=== PATIENT | male | born 1945 | race Caucasian/White ===

== ENCOUNTER 2019-03-15 07:55 | Outpatient (REF) | payer MEDICARE, OTHER, SELFPAY ==
[2019-03-15 13:58] LABS: HCT 44.8 % (40.0-50.0); Mean Corp. HGB Concentration 33.5 g/dL (32.0-36.0); Mean Corpuscular Hemoglobin 33.5 pg (27.0-33.0); Mean Platelet Volume 9.8 fL (8.0-11.0); Platelet Count 262 x1000/uL (130-400); RBC 4.48 m/cumm (4.50-6.00); RBC Distribution Width 12.7 % (11.8-14.1); White Blood Cell Count 8.44 k/cumm (4.4-10.8)
[2019-03-15 14:07] LABS: ALT 41 U/L (12-78); AST 31 U/L (15-37); Albumin 3.7 g/dL (3.4-5.0); Alkaline Phosphatase 74 U/L (46-116); Anion Gap 12.2 mmol/L (3-11); BUN 14 mg/dL (7-18); Bilirubin, Total 1.2 mg/dL (0.2-1.0); CO2 25.8 mmol/L (21.0-32.0); CREATININE 0.81 mg/dL (0.70-1.30); Chloride 103 mmol/L (98-107); Glucose 90 mg/dL (70-100); Potassium 4.2 mmol/L (3.5-5.1); Sodium 141 mmol/L (136-145); Total Protein 7.3 g/dL (6.4-8.2); Vitamin B12 400 pg/mL (193-986)
[2019-03-15 15:21] LABS: Hemoglobin A1C 5.7 % (4.5-6.2)
[2019-03-16 11:35] LABS: Folate 5.1 ng/ml
== END 2019-03-15 08:15 ==
LOC: NCHCN 07:55
PROVIDERS: PCP Family Medicine; Visit Provider Family Medicine
DX: R25.1 Tremor, unspecified (principal); D75.89 Other specified diseases of blood and blood-forming organs; R73.09 Other abnormal glucose
CPT/HCPCS: 80053; 85027; 82607; 82746; 83036

== ENCOUNTER 2019-06-05 12:12 | Outpatient (REF) | payer MEDICARE, OTHER, SELFPAY ==
--- NOTE | 2019-06-05 11:37 | SKI_PTH ---
PATIENT: Bo Titus Jr LOC: [facility] U#:[id number] AGE/SX: 73/M ROOM: RE06/05/[address]: Tristen Tay DO : 1945 BED: DIS: 06/05/2019 SPEC #: [id number] RECD: 06/05/19 18:09 STATUS: CEDRIC REQ #: [id number] ABIDA: 06/05/19 11:[address]: Tristen Tay DEPT: Surgical Specimen RECD BY: Chely Quarles ENTERED: 06/05/19 18:10 SP TYPE: SKI OTHR DR: Genevieve Peterson Tissues: 1 - SKIN BIOPSY(SHAVE/PUNCH) Procedures: SKIN LEVEL 4 Comments: [id number]
== END 2019-06-05 12:32 ==
LOC: LBN 12:12
PROVIDERS: PCP Family Medicine; Visit Provider Otolaryngology Otolaryngology/Facial Plastic Surgery
DX: C44.311 Basal cell carcinoma of skin of nose (principal)
CPT/HCPCS: 88305

== ENCOUNTER 2019-07-17 06:15 | Day surgery (SDC) | payer MEDICARE, OTHER, SELFPAY ==
[2019-07-17 06:29] VITALS: BP 144/97; PULSE 87; RESP 16; TEMP 36.5; O2SAT 99
[2019-07-17] MEDS: Lactated Ringers 1,000 ML 80 ML IV (06:48)
[2019-07-17] MEDS: CLINDAMYCIN 600 MG/50 ML BAG 100 MG IVPB (07:47)
--- NOTE | 2019-07-17 08:07 | SKI_PTH ---
PATIENT: Bo Titus Jr LOC: [facility] U#:[id number] AGE/SX: 73/M ROOM: RE07/17/[address]: Tristen Tay DO : 1945 BED: DIS: 07/17/2019 SPEC #: [id number] RECD: 07/17/19 12:19 STATUS: CEDRIC REPerla #: [id number] ABIDA: 07/17/19 08:[address]: Tristen Tay DEPT: Surgical Specimen RECD BY: Yoselin Rahman ENTERED: 07/17/19 12:24 SP TYPE: ESTRELLA RIBEIRO DR: Genevieve Peterson Tissues: 1 - SKIN BIOPSY(SHAVE/PUNCH) 2 - SKIN BIOPSY(SHAVE/PUNCH) 3 - SKIN BIOPSY(SHAVE/PUNCH) 4 - SKIN BIOPSY(SHAVE/PUNCH) 5 - SKIN BIOPSY(SHAVE/PUNCH) 6 - FROZEN SECTION EXAM 7 - FROZEN SECTION- EXTRA SPECIMEN Procedures: FROZEN SECTION EXTRA SKIN LEVEL 4 FROZEN SECTION EXAM Comments: [id number]
--- NOTE | 2019-07-17 08:16 | W.PM.DSUDISC ---
Discharge Plan Disposition Patient Disposition: HOME Condition: Good Discharge Details Reason For Visit: or Attending Provider: Tristen Tay Primary Care Provider: Genevieve Peterson Home Meds and New Rx's Prescriptions: No Action cyanocobalamin (vitamin B-12) [Vitamin B-12] 1,000 mcg Tablet 1,000 mcg PO DAILY RF: 0 tadalafil [Cialis] 10 mg Tablet 10 mg PO PRN PRNRF: 0 Discharge Instructions Additional Instructions: see sheet Activity:: Activity as Tolerated Remove Dressings/Wound Care:: 24 hours Shower/Bathe:: 24 hours Diet:: As Tolerated DS: Diagnosis Discharge Diagnosis (1) Skin cancer, basal cell: Status: Acute
--- NOTE | 2019-07-17 08:19 | W.PM.DSUDISC ---
Discharge Plan Disposition Patient Disposition: HOME Condition: Good Discharge Details Reason For Visit: or Attending Provider: Tristen Tay Primary Care Provider: Genevieve Peterson Home Meds and New Rx's Prescriptions: Continued cyanocobalamin (vitamin B-12) [Vitamin B-12] 1,000 mcg Tablet 1,000 mcg PO DAILY RF: 0 tadalafil [Cialis] 10 mg Tablet 10 mg PO PRN PRNRF: 0 Discharge Instructions Additional Instructions: see sheet Activity:: Activity as Tolerated Remove Dressings/Wound Care:: 24 hours Shower/Bathe:: 24 hours Diet:: As Tolerated DS: Diagnosis Discharge Diagnosis (1) Skin cancer, basal cell: Status: Acute
[2019-07-17] MEDS: Oxymetazolone 0.05% SPRAY 15 ML BTL (09:27)
[2019-07-17 10:30] VITALS: BP 130/82; PULSE 79; RESP 16; TEMP 36.1; O2SAT 95
--- NOTE | 2019-07-17 13:59 | ROE_ITS ---
DATE OF PROCEDURE: July 17, 2019 PREOPERATIVE DIAGNOSIS: Basal cell carcinoma, nasal dorsum. POSTOPERATIVE DIAGNOSIS: Same. PROCEDURE: 1. Excision of extensive basal cell carcinoma with multiple positive margins invaded into the underly ing architecture of the nose and nasal dorsum, aggressive sub-type. 2. Wide undermining measuring 4.2 cm x 3.5 cm complex closure. Overall defect after additional excis ion was 3.7 cm SURGEON: Tristen Tay D.O. ANESTHESIA: MAC sedation and 23 cc's of 1% Lidocaine with 1:100,000 epinephrine. CONDITION: The patient was stable to PACU. COMPLICATIONS: None. SPECIMEN: Frozen section performed; positive 12 to 6 o'clock, as well as deep; required re-resection ; additional frozen section revealed positivity between 3 and 6; additional resection performed. A t otal of two frozen sections and three permanent sections with extensive excision and spread of this p rimary tumor. INDICATIONS FOR PROCEDURE: This is a pleasant 73-year-old male who presents with a non-healing lesio n of the nasal tip, which was biopsied and showed to be basal cell carcinoma, positive at the periphe ry, as well as the base. The decision was made forth to proceed with surgery. We discussed numerous attempts for resection and reconstruction, including bi-lobe reconstruction, skin grafts and primary closure. The decision was made forth to proceed with surgery. Risks and complications were discuss ed in detail. Consent was placed in the Chart. PROCEDURE: The patient was brought back to the operative suite in stable condition, placed supine on the operating table, given IV sedation. Preoperatively 19 cc's of 1% Lidocaine with 1:100,000 epine phrine was injected into the right neck, as well as the nose and right nasal facial crease. The bebe ent was prepped and draped again in normal fashion. A time-out was taken to confirm proper patient a nd procedure. A #15 blade scalpel was used to excise the primary lesion, initially measuring 1.2 cm. Colored sutur es were placed for frozen section. Frozen section was performed. Positivity between 12 and 6 o'cloc k was found, as well as the entire deep margin. Full-thickness skin had already been excised; this w as evident of basal cell extending into the architecture of the nasal dorsum. Periosteum and cartila ginous structures were then excised. New margin in purple and the colored sutures were placed. This was sent for permanent analysis. This did not extend into the internal aspect of the nose. Additio nal frozen section analysis of the prior 12 to 6 o'clock re-resection was positive at the 4 o'clock; there was a rare focus. We decided to remove again additional re-resection of 3 to 6 o'clock and sen t for permanent analysis. The wound did lengthen. We opted for vertical complex closure after wide undermining of 4.2 cm x 3.5 cm of the nasal dorsal vault and nasal tip area. I felt this was going t o provide a better cosmetic outcome than a skin graft. Bi-lobe flap was not possible because the def ect at the height was greater than 2 cm. Complex undermining was performed in the submuscular layer. Triple layer closure was performed with #4-0 Monocryl, #3-0 Nylon and #4-0 Nylon. Six o'clock and twelve o'clock dog ears were excised. Total wound length was 3.7 cm. I opted for a vertical closure versus a skin graft, as I felt this was going to be a better functional outcome. Total blood loss w as 2 cc's. Total local was 23 cc's; 4 cc's was used intraoperatively. The patient was stable to PAC U.
== END 2019-07-17 11:16 | disposition home or self-care (01) ==
PROVIDERS: PCP Family Medicine; Visit Provider Otolaryngology Otolaryngology/Facial Plastic Surgery
PROC: (CPT 11642; principal; 2019-07-17 07:30)
DX: C44.311 Basal cell carcinoma of skin of nose (principal)
CPT/HCPCS: 11642; 13152; 88305; 88331; 88332; J1885; J2250; J2405

== ENCOUNTER 2020-03-20 09:19 | Outpatient (REF) | payer MEDICARE, SELFPAY ==
[2020-03-20 15:37] LABS: HGB 14.7 g/dL (13.5-17.5); Mean Corp. HGB Concentration 34.2 g/dL (32.0-36.0); Mean Corpuscular Hemoglobin 33.5 pg (27.0-33.0); Mean Corpuscular Volume 97.9 fL (80-95); Mean Platelet Volume 10.3 fL (8.0-11.0); Platelet Count 280 x1000/uL (130-400); RBC 4.39 m/cumm (4.50-6.00); RBC Distribution Width 12.8 % (11.8-14.1); White Blood Cell Count 5.89 k/cumm (4.4-10.8)
[2020-03-20 17:35] LABS: ALT 56 U/L (16-63); AST 50 U/L (15-37); Albumin 3.8 g/dL (3.4-5.0); Alkaline Phosphatase 60 U/L (46-116); Anion Gap 12.7 mmol/L (3-11); BUN 15 mg/dL (7-18); Bilirubin, Total 1.1 mg/dL (0.2-1.0); CO2 25.3 mmol/L (21.0-32.0); CREATININE 0.83 mg/dL (0.70-1.30); Calcium 9.3 mg/dL (8.5-10.1); Chloride 102 mmol/L (98-107); Folate 4.3 ng/mL (8.6-20.0); Glucose 87 mg/dL (74-106); Sodium 140 mmol/L (136-145); Total Protein 7.3 g/dL (6.4-8.2); Vitamin B12 475 pg/mL (193-986)
[2020-03-20 19:28] LABS: Hemoglobin A1C 5.3 % (3.8-5.6)
== END 2020-03-20 09:39 ==
LOC: NCHCN 09:19
PROVIDERS: PCP Family Medicine; Visit Provider Family Medicine
DX: R73.03 Prediabetes (principal); D75.89 Other specified diseases of blood and blood-forming organs
CPT/HCPCS: 80053; 85027; 82607; 82746; 83036

== ENCOUNTER 2021-04-15 11:28 | Outpatient (REF) | payer MEDICARE, SELFPAY ==
[2021-04-15 14:41] LABS: ALT 49 U/L (16-63); AST 35 U/L (15-37); Albumin 3.8 g/dL (3.4-5.0); Alkaline Phosphatase 53 U/L (46-116); Bilirubin, Direct 0.2 mg/dL (0.0-0.2); Bilirubin, Total 0.5 mg/dL (0.2-1.0); Total Protein 7.2 g/dL (6.4-8.2)
[2021-04-15 14:56] LABS: Iron 115 ug/dL (65-175); Total Iron Binding Capacity 277 ug/dL (250-450); Transferrin Sat 42 % (20-55)
[2021-04-15 15:25] LABS: Ferritin 259 ng/mL (26-388); Folate 19.9 ng/mL (8.6-20.0); Vitamin B12 589 pg/mL (193-986)
[2021-04-16 10:12] LABS: HBs Antibody, Quant <3.1 mIU/mL (See Note); Hepatitis B Surface Ab Negative (See Note)
[2021-04-16 10:24] LABS: Hepatitis B Surface Ag Negative (Negative)
[2021-04-16 11:02] LABS: Hep A Total Ab w Rflx IgM Negative (Negative)
[2021-04-16 11:30] LABS: Hepatitis C Ab w Rflx HCV PCR Negative (Negative)
== END 2021-04-15 11:29 | disposition home or self-care (01) ==
LOC: NCHCN 11:28
PROVIDERS: PCP Family Medicine; Visit Provider Family Medicine
DX: D75.89 Other specified diseases of blood and blood-forming organs (principal); D52.9 Folate deficiency anemia, unspecified; R74.8 Abnormal levels of other serum enzymes
CPT/HCPCS: 80076; 86706; 86709; 86803; 87340; 82607; 82728; 82746; 83540; 83550

== ENCOUNTER 2022-04-28 16:13 | Outpatient (REF) | payer MEDICARE, SELFPAY ==
[2022-04-28 16:24] LABS: HCT 41.5 % (40.0-50.0); HGB 13.9 g/dL (13.5-17.5); MCH 32.6 pg (27.0-33.0); MCHC 33.5 % (32.0-36.0); MCV 97 fL (80-95); MPV 9.7 fL (8.0-11.0); Platelet Count 279 10^3/uL (130-400); RBC 4.27 10^6/uL (4.36-5.78); RDW 12.6 % (11.8-14.1); RDW-SD 44.9 fL
[2022-04-28 16:42] LABS: Iron 110 ug/dL (65-175)
[2022-04-28 16:59] LABS: ALT 47 U/L (16-63); AST 37 U/L (15-37); Albumin 3.4 g/dL (3.4-5.0); Alkaline Phosphatase 62 U/L (46-116); Anion Gap 13.2 mmol/L (3-11); BUN 13 mg/dL (7-18); Bilirubin, Total 0.6 mg/dL (0.2-1.0); CO2 26.8 mmol/L (21.0-32.0); CREATININE 0.8 mg/dL (0.70-1.30); Calcium 8.9 mg/dL (8.5-10.1); Chloride 102 mmol/L (98-107); Ferritin 332 ng/mL (26-388); Folate 3.6 ng/mL (8.6-20.0); Glucose 79 mg/dL (74-106); Potassium 4.1 mmol/L (3.5-5.1); Sodium 142 mmol/L (136-145); Total Protein 7.2 g/dL (6.4-8.2); Vitamin B12 1708 pg/mL (193-986)
[2022-04-28 17:08] LABS: Bilirubin, Direct 0.2 mg/dL (0.0-0.2)
== END 2022-04-28 16:14 | disposition home or self-care (01) ==
LOC: NCHCN 16:13
PROVIDERS: PCP Family Medicine; Visit Provider Family Medicine
DX: D52.9 Folate deficiency anemia, unspecified (principal); F10.10 Alcohol abuse, uncomplicated
CPT/HCPCS: 80048; 80076; 85027; 82607; 82728; 82746; 83540

== ENCOUNTER 2023-05-05 10:01 | Outpatient (REF) | payer MEDICARE, SELFPAY ==
[2023-05-05 17:06] LABS: HCT 42.2 % (40.0-50.0); HGB 13.9 g/dL (13.5-17.5); MCH 32.3 pg (27.0-33.0); MCHC 32.9 % (32.0-36.0); MCV 98 fL (80-95); MPV 9.7 fL (8.0-11.0); Platelet Count 311 10^3/uL (130-400); RDW 12.6 % (11.8-14.1); RDW-SD 45.1 fL; WBC 7.34 10^3/uL (4.4-10.8)
[2023-05-05 18:20] LABS: Iron 88 ug/dL (65-175)
[2023-05-05 19:24] LABS: ALT 59 U/L (16-63); AST 59 U/L (15-37); Albumin 3.4 g/dL (3.4-5.0); Alkaline Phosphatase 83 U/L (46-116); Anion Gap 12.6 mmol/L (3-11); BUN 10 mg/dL (7-18); Bilirubin, Total 0.7 mg/dL (0.2-1.0); CO2 27.4 mmol/L (21.0-32.0); CREATININE 0.8 mg/dL (0.70-1.30); Calcium 9.2 mg/dL (8.5-10.1); Calculated LDL 76 mg/dL (<100); Chloride 98 mmol/L (98-107); Cholesterol 186 mg/dL (<200); Estimated GFR 92.29 (mL/min/1.73m2); Ferritin 678 ng/mL (26-388); Glucose 78 mg/dL (74-106); HDL Cholesterol 98 mg/dL (40-60); Sodium 138 mmol/L (136-145); Total Protein 7.2 g/dL (6.4-8.2); Triglyceride 64 mg/dL (<150)
[2023-05-05 19:25] LABS: Folate > 20.0 ng/mL (8.6-20.0)
[2023-05-05 19:32] LABS: Bilirubin, Direct 0.3 mg/dL (0.0-0.2)
== END 2023-05-05 10:02 | disposition home or self-care (01) ==
LOC: NCHCN 10:01
PROVIDERS: PCP Family Medicine; Visit Provider Family Medicine
DX: D52.9 Folate deficiency anemia, unspecified (principal); F10.10 Alcohol abuse, uncomplicated; R03.0 Elevated blood-pressure reading, without diagnosis of hypertension; R79.89 Other specified abnormal findings of blood chemistry
CPT/HCPCS: 80048; 80061; 80076; 85027; 82728; 82746; 83540

== ENCOUNTER → 2023-06-02 01:50 | Outpatient (CLI) | payer MEDICARE, SELFPAY ==
--- NOTE | 2023-06-02 | DI.MRI_ITS ---
Exam(s) MR BRAIN WO EXAM: MR BRAIN WO CLINICAL HISTORY: MILD COGNITIVE IMPAIRMENT, G31.84, ATAXIA, R27.0 TECHNIQUE: Multiplanar multisequence MRI of the brain was performed. COMPARISON: No exams were available for comparison FINDINGS: VENTRICLES AND EXTRA AXIAL SPACES: Normal in size and morphology for the patient's age. MIDLINE SHIFT: None. CEREBRAL PARENCHYMA: No focus of restricted diffusion to suggest acute infarct. No space-occupying le ashley identified. Mild to moderate atrophy consistent with the patient's age. No scattered foci of high signal in the white matter. HEMORRHAGE: No acute hemorrhage. Focus of hemosiderin seen on susceptibility weighted images in the left parietal lobe, consistent with old petechial microhemorrhage. BRAINSTEM/CEREBELLUM: Normal. VISUALIZED PARANASAL SINUSES/MASTOIDS:Clear. Vasculature: Normal flow void. PITUITARY GLAND: Unremarkable. ORBITS: Unremarkable. IMPRESSION: No acute abnormality. Old petechial micro hemorrhage left parietal lobe. DATA REPOSITORY:
== END ==
PROVIDERS: PCP Family Medicine; Visit Provider Family Medicine
DX: G31.84 Mild cognitive impairment of uncertain or unknown etiology (principal); R27.0 Ataxia, unspecified
CPT/HCPCS: 70551

== ENCOUNTER 2023-08-23 10:27 | Inpatient (IN) | payer MEDICARE, SELFPAY ==
[2023-08-23] VITALS (127 sets, daily range): BP systolic 51–138; BP diastolic 27–76; PULSE 73–161; RESP 10–39; TEMP 36.6–39.3; O2SAT 94–100
--- NOTE | 2023-08-23 10:00 | RT.EKG_ITS ---
APPROVED REPORT Exam: Resting ECG Reason for Exam: dizzy Patient Location: E HR:126 bpm ECG Measurements Heart Rate 126 AXIS LA 138 P 62 QRSd 97 QRS -64 QT 303 T 81 QTc 439 Conclusion Sinus tachycardia...rate> 99 Left anterior fascicular block...axis(240,-40), init forces inf
--- NOTE | 2023-08-23 10:41 | W.ED.GENAD ---
Discharge Plan Disposition Patient Disposition: Admit to [facility] Condition: Serious Discharge Details Clinical Impression: Alcohol withdrawal, Sepsis Admit Date/Time: 08/23/23 12:20 Admit Provider: Adolfo Mckenzie Attending Provider: Adolfo Mckenzie Primary Care Provider: Genevieve Peterson ED Provider: Tracy Carrera Medical Decision Making <Tracy Carrera NP - Last Filed: 08/23/23 15:55> 77-year-old male presents to the ER via EMS for increased shakes after stopping drinking 3 weeks ago, he did fall on Wednesday. He presents febrile with a temperature of 102, he has rigors, he is covered in stool also reported by EMS incontinence of urine. He denies any chest pain or abdominal pain he does have some left hip pain which he reports has been ongoing before the fall for a few weeks. He is meeting sepsis criteria upon arrival. He last took some ibuprofen yesterday. He does have a past medical history of alcohol abuse, glaucoma, hypertension, prediabetes, surgical history includes tonsillectomy, prostatectomy, colon resection and colonoscopy. He reports that he drinks a gallon of alcohol a week usually, he is a former smoker. Sepsis order set ordered including CBC, CMP, VBG, COVID PCR, urinalysis, ethyl alcohol level, lactate blood cultures x 2. Levofloxacin IV ordered for broad-spectrum treatment. Will anticipate admission, discussed this with the patient who verbalized understanding is in agreement. 1213: Spoke with Hospitalist team, and Dr. Mckenzie they agreed to accept admission for sepsis to ICU. Will reassess after the second liter of LR and plan to start nor-epi. He does recommend phenobarbital CIWA protocol which was ordered. He states that he will place the admit orders. Medical Records Medical records reviewed: Yes I reviewed the patient's medical records. Lab Data Lab results reviewed: Yes I reviewed the patient's lab results. Labs: 08/23/23 11:37 Blood Blood Culture - Pending 08/23/23 11:27 Blood Blood Culture - Pending Laboratory Tests Range/Units 08/23/23 08/23/23 08/23/23 10:19 10:50 10:56 WBC (4.4-10.8) 10^3/uL 19.53 H RBC (4.36-5.78) 10^6/uL 3.77 L Hgb (13.5-17.5) g/dL 11.9 L Hct (40.0-50.0) % 35.1 L MCV (80-95) fL 93 MCH (27.0-33.0) pg 31.6 MCHC (32.0-36.0) % 33.9 RDW (11.8-14.1) % 12.1 Plt Count (130-400) 10^3/uL 463 H MPV (8.0-11.0) fL 9.2 Immature Gran % 0.8 Neutrophils % 80.1 Lymphocytes % 10.3 Monocytes % 7.8 Eosinophils % 0.4 Basophils % 0.6 Nucleated RBC % (0.0-0.3) % 0.0 Absolute Neutrophils (1.2-6.7) 10^3/uL 15.64 H Absolute Lymphocytes (1.2-3.4) 10^3/uL 2.01 Absolute Monocytes (0.1-0.8) 10^3/uL 1.52 H Absolute Eosinophils (0.0-0.7) 10^3/uL 0.08 Absolute Basophils (0.0-0.2) 10^3/uL 0.12 RBC Morphology Normal VBG pH (7.31-7.41) 7.38 VBG pCO2 (41-51) mmHg 38 L VBG pO2 mmHg 27 VBG HCO3 (23-28) mmol/L 23 VBG Total CO2 (24-29) mmol/L 21 L VBG O2 Saturation % 45 VBG Base Excess (-2-3) mmol/L -3 L VBG Lactate (0.6-1.4) mmol/L 1.5 H Sodium (136-145) mmol/L 128 L Potassium (3.5-5.1) mmol/L 3.5 Chloride (98-107) mmol/L 92 L Carbon Dioxide (21.0-32.0) mmol/L 22.4 Anion Gap (3-11) mmol/L 13.6 H BUN (7-18) mg/dL 22 H Creatinine (0.70-1.30) mg/dL 1.0 Est GFR (CKD-EPI 2020) (mL/min/1.73m2) 78.49 Glucose (74-106) mg/dL 78 Calcium (8.5-10.1) mg/dL 9.4 Magnesium (1.8-2.4) mg/dL 1.9 Total Bilirubin (0.2-1.0) mg/dL 1.4 H AST (15-37) U/L 33 ALT (16-63) U/L 20 Alkaline Phosphatase (46-116) U/L 115 Troponin I (<or=60) ng/L < 50 Total Protein (6.4-8.2) g/dL 7.0 Albumin (3.4-5.0) g/dL 2.5 L Procalcitonin ng/mL 6.0 Ethyl Alcohol Cancelled < 3.0 COVID-19 Source Nasopharynx SARS-CoV-2 (PCR) (Negative) Negative <Casper Cali MD - Last Filed: 08/23/23 13:28> Date: 08/23/23 Time: 13:21 Note: Patient seen, examined, and discussed with THANG Carrera. 77-year-old male with history of alcohol use disorder, recently sober, here with sepsis. Unclear etiology at this point. Concern for potential urinary source. Urinalysis currently pending. Consider additional source including left hip septic arthritis?patient has had pain in his hip progressive over the past 6 months, severe now to the point of difficulty ambulating. He has no inflammatory changes overlying hip. Patient has received IV fluid bolus and heart rate improved. MAP currently 60. Plan to continue IV fluid resuscitation and if no improvement after next bolus, would consider initiating treatment with norepinephrine infusion. I agree with treatment plan as discussed/documented by THANG Carrera. HPI <Tracy Carrera NP - Last Filed: 08/23/23 15:55> General Mode of arrival: EMS. Date/Time Provider Initiated Documentation: 08/23/23 10:36. Limitations to Documentation: no limitations. Information obtained by: patient, EMS, RN notes reviewed and old records reviewed. HPI Narrative: 77-year-old male with a fever, left hip pain falls. Related Data Home Medications Medication Instructions Recorded Confirmed cyanocobalamin (vitamin B-12) 1,000 mcg PO DAILY 07/13/19 08/23/23 1,000 mcg tablet (Vitamin B-12) cholecalciferol (vitamin D3) 10 10 mcg PO DAILY 05/25/23 08/23/23 mcg (400 unit) tablet folic acid 1 mg tablet 1 mg PO DAILY 05/25/23 08/23/23 latanoprost 0.005 % eye drops 1 drp ophthalmic (eye) DAILY 05/25/23 08/23/23 timolol maleate 0.25 % eye drops 1 drp ophthalmic (eye) DAILY 05/25/23 08/23/23 Allergies Allergy/AdvReac Type Severity Reaction Status Date / Time Penicillins AdvReac Unknown Hives Unverified 07/17/19 06:25 General Stated Complaint: GenMedical ADAMA: 2 Review of Systems <Tracy Carrera NP - Last Filed: 08/23/23 15:55> All systems reviewed & are unremarkable except as noted in HPI and below Constitutional Constitutional: Reports as per HPI, Reports body ache(s), Reports chills, Reports fever(s), Reports frequent falls, Denies headache(s) and Reports weakness ENT Ears, Nose, Mouth, and Throat: Denies headache(s) Gastrointestinal Comments: Diarrhea Genitourinary Comments: Urinary incontinence Musculoskeletal Musculoskeletal: Reports arthralgias (Left hip) Neurologic Neurologic: Reports frequent falls, Denies headache(s) and Reports weakness Comments: Denies headache, loss of consciousness no focal neurodeficits noted on initial presentation PFSH <Tracy Carrera NP - Last Filed: 08/23/23 15:55> All Active Problems (Updated 08/23/23 @ 12:31 by Tracy Carrera NP) Sepsis (Acute) Alcohol withdrawal (Acute) Infection of superficial incisional surgical site after procedure (Acute) Neoplasm of unspecified behavior of bone, soft tissue, and skin (Acute) Medical History (Updated 08/23/23 @ 12:31 by Tracy Carrera NP) Hx of adenomatous polyp of colon Macrocytosis Erectile dysfunction Megaloblastic anemia Elevated blood pressure reading Glaucoma Hearing loss Loss of balance Mild cognitive impairment, so stated Alcohol abuse Tremor Prediabetes Basal cell carcinoma Skin cancer, basal cell Surgical History (Updated 05/24/23 @ 14:02 by Viola Ramon) History of tonsillectomy History of robot-assisted laparoscopic radical prostatectomy History of colon resection 14cm removed, per pt. -BR History of ankle surgery ankle pinning 50 yrs ago History of colonoscopy Family History (Updated 05/24/23 @ 14:02 by Viola Ramon) Father Cancer Heart disease Social History Smoking/Tobacco Use Status: Former Tobacco Use Smoking risk assessment performed?: Yes Alcohol Intake: former Drug use: Never Substance use type: does not use Details: PER PT- QUIT DRINKING 2-3WEEKS AGO Housing: house Do you feel safe at home: Yes Do you feel safe in your relationship?: Yes Exam <Tracy Carrera NP - Last Filed: 08/23/23 15:55> Narrative Exam Narrative: General: Well Developed, Awake and Alert, conversant. Appears rigorous mildly tachycardic upon arrival fever 102 Skin: Warm and Dry HEENT: Head: No palpable deformities, Normocephalic Eyes: Pupils PERRLA, EOM's intact. No periorbital eccymosis or step off Ears: Canal patent. Tympanic membranes are clear . No kelly's sign, no hemptympanum. Nose/Face: Atraumatic. Facial bones nontender to palpation and stable with manipulation. Mouth/Throat: No intraoral trauma. Teeth and mandible are intact. Neck: No midline tenderness, no step off, no deformity to palpation of C-spine. Trachea midline. Chest: No surface trauma. Nontender without crepitus or deformity. Lungs clear to ausculatation bilaterally. Heart: RRR, no rubs, murmurs or gallop. Abdomen: No abrasions, ecchymosis, or surface trauma. Nondistended. Nontender to palpation no guarding, rebound, or rigidity. Pelvis: Nontender to palpation and stable to compression. Femoral pulses strong and equal, left hip pain. Extremities: no surface trauma. Sensation intact. Peripheral pulses intact and equal. Neuro: ANO x4, GCS 15, cranial nerves II through XII intact. Motor and sensory exam nonfocal. Reflexes are symmetric. Course <Tracy Carrera NP - Last Filed: 08/23/23 15:55> Vital Signs Vital signs: Vital Signs Temperature 39.3 C H 08/23/23 10:29 Pulse 130 H 08/23/23 10:29 Respiratory Rate 22 08/23/23 10:29 Blood Pressure 124/66 08/23/23 10:29 Pulse Oximetry 99 08/23/23 10:29 Temperature 39.3 C H 08/23/23 10:29 Temperature Source Oral 08/23/23 10:29 Pulse 130 H 08/23/23 10:29 Respiratory Rate 22 08/23/23 10:29 Blood Pressure 124/66 08/23/23 10:29 Blood Pressure Position Sitting 08/23/23 10:29 Pulse Oximetry 99 08/23/23 10:29 Oxygen Delivery Method Room Air 08/23/23 10:29 Oxygen Flow Rate 0 08/23/23 10:29 Pain Level 8 08/23/23 10:29 Lab/Test Results Lab/Test Results: 08/23/23 10:21 Blood Blood Culture - Pending 08/23/23 10:21 Blood Blood Culture - Pending Critical Care Time <Tracy Carrera NP - Last Filed: 08/23/23 15:55> Critical Care Time Critical Care Time: Yes Total Critical Care Time: 45 Attestation: I spent greater than 35 minutes addressing this patient's acute life threatening illness. This time was spent engaged in actions directly related to the patient's care. Failure to initiate these interventions would have likely resulted in clinically significant or life threatening deterioration in the patients condition.
--- NOTE | 2023-08-23 10:45 | DI.RAD_ITS ---
Exam(s) XR PORTABLE CHEST AP EXAM: XR PORTABLE CHEST AP CLINICAL HISTORY: PUI, Fever, Cough, Wheeze TECHNIQUE: 2D digital imaging was performed. COMPARISON: CR CHEST 2 VIEWS PA,LAT from 12/28/2012 FINDINGS: Leads overlie the chest. LUNGS: Clear. No pleural abnormality seen. HEART: Normal size. AORTA: Normal diameter. BONES: Unremarkable for age. Soft tissues: Unremarkable. IMPRESSION: No acute findings. DATA REPOSITORY: RADIATION DOSE DELIVERED:
[2023-08-23 11:06] LABS: BE (Venous) -3 mmol/L (-2-3); HCO3 (Venous) 23 mmol/L (23-28); O2 Sat (Venous) 45 %; TCO2 (Venous) 21 mmol/L (24-29); pCO2 (Venous) 38 mmHg (41-51); pH (Venous) 7.38 (7.31-7.41); pO2 (Venous) 27 mmHg
[2023-08-23 11:07] LABS: Abs Immature Grans 0.16 10^3/uL (0.0-0.06); Absolute Neutrophil Count 15.64 10^3/uL (1.2-6.7); Basophils % 0.6; Eosinophils % 0.4; HCT 35.1 % (40.0-50.0); HGB 11.9 g/dL (13.5-17.5); Immature Grans % 0.8; Lactate 1.5 mmol/L (0.6-1.4); Lymphocytes % 10.3; MCH 31.6 pg (27.0-33.0); MCHC 33.9 % (32.0-36.0); MCV 93 fL (80-95); MPV 9.2 fL (8.0-11.0); Monocytes % 7.8; Neutrophils % 80.1; Platelet Count 463 10^3/uL (130-400); RBC 3.77 10^6/uL (4.36-5.78); RDW 12.1 % (11.8-14.1); RDW-SD 41.9 fL; WBC 19.53 10^3/uL (4.4-10.8)
[2023-08-23 11:12] LABS: Absolute Basophil Count 0.12 10^3/uL (0.0-0.2); Absolute Eosinophil Count 0.08 10^3/uL (0.0-0.7); Absolute Lymphocyte Count 2.01 10^3/uL (1.2-3.4); Absolute Monocyte Count 1.52 10^3/uL (0.1-0.8)
[2023-08-23 11:14] LABS: Source Nasopharynx
[2023-08-23 11:22] LABS: Diff Comment Diff Reviewed; RBC Morphology Normal
[2023-08-23 11:28] LABS: ALT 20 U/L (16-63); AST 33 U/L (15-37); Albumin 2.5 g/dL (3.4-5.0); Alkaline Phosphatase 115 U/L (46-116); Anion Gap 13.6 mmol/L (3-11); BUN 22 mg/dL (7-18); Bilirubin, Total 1.4 mg/dL (0.2-1.0); CO2 22.4 mmol/L (21.0-32.0); Calcium 9.4 mg/dL (8.5-10.1); Chloride 92 mmol/L (98-107); ETHANOL BLOOD < 3.0 mg/dL (<10); Estimated GFR 78.49 (mL/min/1.73m2); Glucose 78 mg/dL (74-106); Magnesium 1.9 mg/dL (1.8-2.4); Potassium 3.5 mmol/L (3.5-5.1); Sodium 128 mmol/L (136-145); Troponin I < 50 ng/L (<or=60)
[2023-08-23] MEDS: Acetaminophen 325 MG TAB 650 MG PO ×2 (11:28→19:32)
[2023-08-23] MEDS: Lactated Ringers 500 ML 1000 ML IV ×2 (11:28→15:40)
[2023-08-23] MEDS: levoFLOXacin 750 MG/150 ML BAG 100 MG IVPB (11:46)
[2023-08-23] MEDS: Lactated Ringers 1,000 ML 1000 ML IV (12:08)
[2023-08-23 12:11] LABS: COVID-19 PCR Negative (Negative)
[2023-08-23 13:24] LABS: Bilirubin Moderate (Negative); Blood Trace-intact (Negative); Clarity Clear (Clear); Glucose Negative (Negative); Ketones 40 mg/dL (Negative); Leukocyte Esterase Negative (Negative); Nitrite Positive (Negative); Specific Gravity 1.015 (1.005-1.025); pH 5.5 (5-8)
[2023-08-23 13:25] LABS: Lactate 1.1 mmol/L (0.6-1.4)
--- NOTE | 2023-08-23 13:29 | W.PC.ACHO ---
Registration Status: PRE ER Primary Language: Preferred Language: Latvian ED Information & Data Chief Complaint GenMedical 08/23/23 11:15 Chief Complaint GenMedical 08/23/23 10:46 Triage Note Pt BIBEMS for dizziness, 08/23/23 10:29 incontinence, fell on Wednesday. Quit drinking x2-3 weeks ago, shakiness started then. Medical / Surgical History (Updated 08/23/23 @ 12:31 by Tracy Carrera NP) Hx of adenomatous polyp of colon Macrocytosis Erectile dysfunction Megaloblastic anemia Elevated blood pressure reading Glaucoma Hearing loss Loss of balance Mild cognitive impairment, so stated Alcohol abuse Tremor Prediabetes Basal cell carcinoma Skin cancer, basal cell (Updated 05/24/23 @ 14:02 by Viola Ramon) History of tonsillectomy History of robot-assisted laparoscopic radical prostatectomy History of colon resection History of ankle surgery History of colonoscopy Most Recent Vital Signs Temperature 37.7 C H 08/23/23 11:15 Temperature Source Oral 08/23/23 11:15 Pulse 101 H 08/23/23 12:30 Respiratory Rate 16 08/23/23 12:33 Respiratory Effort Normal, Non-Labored 08/23/23 11:15 Respiratory Depth Normal 08/23/23 11:15 Respiratory Pattern Normal 08/23/23 12:38 Blood Pressure 107/60 08/23/23 12:30 Blood Pressure Position Sitting 08/23/23 11:15 Pulse Oximetry 98 08/23/23 12:36 Oxygen Delivery Method Room Air 08/23/23 11:15 Oxygen Flow Rate 0 08/23/23 10:29 Pain Level 8 08/23/23 11:15 Comment L HIP PAIN 08/23/23 11:15 Allergies Penicillins Adverse Reaction (Unknown, Unverified 07/17/19 06:25) Hives Precautions Isolation Standard precaution 08/23/23 11:15 Active Medications Generic Name Dose Route Start Last Admin Trade Name Freq PRN Reason Stop Dose Admin Levofloxacin 750 mg in 150 mls @ 100 mls/hr 08/23/23 10:45 08/23/23 11:46 Levaquin Premixed Bag IVPB 100 mls/hr Q24H ISAIAH Administration IV IV Catheter Type [Right Saline Lock Antecubital] IV Catheter Type [Left Forearm Saline Lock ] IV Catheter Gauge [Right 18 Antecubital] IV Catheter Gauge [Left 18 Forearm] Diagnostics 08/23/23 08/23/23 08/23/23 Range/Units 16:37 13:37 13:20 WBC (4.4-10.8) 10^3/uL RBC (4.36-5.78) 10^6/uL Hgb (13.5-17.5) g/dL Hct (40.0-50.0) % MCV (80-95) fL MCH (27.0-33.0) pg MCHC (32.0-36.0) % RDW (11.8-14.1) % Plt Count (130-400) 10^3/uL MPV (8.0-11.0) fL Immature Gran % Neutrophils % Lymphocytes % Monocytes % Eosinophils % Basophils % Nucleated RBC % (0.0-0.3) % Absolute Neutrophils (1.2-6.7) 10^3/uL Absolute Lymphocytes (1.2-3.4) 10^3/uL Absolute Monocytes (0.1-0.8) 10^3/uL Absolute Eosinophils (0.0-0.7) 10^3/uL Absolute Basophils (0.0-0.2) 10^3/uL RBC Morphology VBG pH (7.31-7.41) VBG pCO2 (41-51) mmHg VBG pO2 mmHg VBG HCO3 (23-28) mmol/L VBG Total CO2 (24-29) mmol/L VBG O2 Saturation % VBG Base Excess (-2-3) mmol/L VBG Lactate Pending Pending (0.6-1.4) mmol/L Sodium (136-145) mmol/L Potassium (3.5-5.1) mmol/L Chloride (98-107) mmol/L Carbon Dioxide (21.0-32.0) mmol/L Anion Gap (3-11) mmol/L BUN (7-18) mg/dL Creatinine (0.70-1.30) mg/dL Est GFR (CKD-EPI 2020) (mL/min/1.73m2) Glucose (74-106) mg/dL Calcium (8.5-10.1) mg/dL Magnesium (1.8-2.4) mg/dL Total Bilirubin (0.2-1.0) mg/dL AST (15-37) U/L ALT (16-63) U/L Alkaline Phosphatase (46-116) U/L Troponin I Pending (<or=60) ng/L Total Protein (6.4-8.2) g/dL Albumin (3.4-5.0) g/dL Procalcitonin ng/mL Urine Color Urine Clarity Urine pH Ur Specific [place] Urine Protein Urine Ketones Urine Blood Urine Nitrite Urine Bilirubin Urine Urobilinogen Ur Leukocyte Esterase Urine Glucose Stool Campylobacter PCR Stl C.difficile Tox PCR Stool Salmonella PCR Stool Shigella PCR Ethyl Alcohol COVID-19 Source SARS-CoV-2 (PCR) (Negative) Shiga Toxin (PCR) 08/23/23 08/23/23 08/23/23 Range/Units 13:19 13:15 10:56 WBC 19.53 H (4.4-10.8) 10^3/uL RBC 3.77 L (4.36-5.78) 10^6/uL Hgb 11.9 L (13.5-17.5) g/dL Hct 35.1 L (40.0-50.0) % MCV 93 (80-95) fL MCH 31.6 (27.0-33.0) pg MCHC 33.9 (32.0-36.0) % RDW 12.1 (11.8-14.1) % Plt Count 463 H (130-400) 10^3/uL MPV 9.2 (8.0-11.0) fL Immature Gran % 0.8 Neutrophils % 80.1 Lymphocytes % 10.3 Monocytes % 7.8 Eosinophils % 0.4 Basophils % 0.6 Nucleated RBC % 0.0 (0.0-0.3) % Absolute Neutrophils 15.64 H (1.2-6.7) 10^3/uL Absolute Lymphocytes 2.01 (1.2-3.4) 10^3/uL Absolute Monocytes 1.52 H (0.1-0.8) 10^3/uL Absolute Eosinophils 0.08 (0.0-0.7) 10^3/uL Absolute Basophils 0.12 (0.0-0.2) 10^3/uL RBC Morphology Normal VBG pH 7.38 (7.31-7.41) VBG pCO2 38 L (41-51) mmHg VBG pO2 27 mmHg VBG HCO3 23 (23-28) mmol/L VBG Total CO2 21 L (24-29) mmol/L VBG O2 Saturation 45 % VBG Base Excess -3 L (-2-3) mmol/L VBG Lactate 1.5 H (0.6-1.4) mmol/L Sodium 128 L (136-145) mmol/L Potassium 3.5 (3.5-5.1) mmol/L Chloride 92 L (98-107) mmol/L Carbon Dioxide 22.4 (21.0-32.0) mmol/L Anion Gap 13.6 H (3-11) mmol/L BUN 22 H (7-18) mg/dL Creatinine 1.0 (0.70-1.30) mg/dL Est GFR (CKD-EPI 2020) 78.49 (mL/min/1.73m2) Glucose 78 (74-106) mg/dL Calcium 9.4 (8.5-10.1) mg/dL Magnesium 1.9 (1.8-2.4) mg/dL Total Bilirubin 1.4 H (0.2-1.0) mg/dL AST 33 (15-37) U/L ALT 20 (16-63) U/L Alkaline Phosphatase 115 (46-116) U/L Troponin I < 50 (<or=60) ng/L Total Protein 7.0 (6.4-8.2) g/dL Albumin 2.5 L (3.4-5.0) g/dL Procalcitonin 6.0 ng/mL Urine Color Pending Urine Clarity Pending Urine pH Pending Ur Specific [place] Pending Urine Protein Pending Urine Ketones Pending Urine Blood Pending Urine Nitrite Pending Urine Bilirubin Pending Urine Urobilinogen Pending Ur Leukocyte Esterase Pending Urine Glucose Pending Stool Campylobacter PCR Pending Stl C.difficile Tox PCR Pending Stool Salmonella PCR Pending Stool Shigella PCR Pending Ethyl Alcohol < 3.0 COVID-19 Source SARS-CoV-2 (PCR) (Negative) Shiga Toxin (PCR) Pending 08/23/23 08/23/23 Range/Units 10:50 10:19 WBC (4.4-10.8) 10^3/uL RBC (4.36-5.78) 10^6/uL Hgb (13.5-17.5) g/dL Hct (40.0-50.0) % MCV (80-95) fL MCH (27.0-33.0) pg MCHC (32.0-36.0) % RDW (11.8-14.1) % Plt Count (130-400) 10^3/uL MPV (8.0-11.0) fL Immature Gran % Neutrophils % Lymphocytes % Monocytes % Eosinophils % Basophils % Nucleated RBC % (0.0-0.3) % Absolute Neutrophils (1.2-6.7) 10^3/uL Absolute Lymphocytes (1.2-3.4) 10^3/uL Absolute Monocytes (0.1-0.8) 10^3/uL Absolute Eosinophils (0.0-0.7) 10^3/uL Absolute Basophils (0.0-0.2) 10^3/uL RBC Morphology VBG pH (7.31-7.41) VBG pCO2 (41-51) mmHg VBG pO2 mmHg VBG HCO3 (23-28) mmol/L VBG Total CO2 (24-29) mmol/L VBG O2 Saturation % VBG Base Excess (-2-3) mmol/L VBG Lactate (0.6-1.4) mmol/L Sodium (136-145) mmol/L Potassium (3.5-5.1) mmol/L Chloride (98-107) mmol/L Carbon Dioxide (21.0-32.0) mmol/L Anion Gap (3-11) mmol/L BUN (7-18) mg/dL Creatinine (0.70-1.30) mg/dL Est GFR (CKD-EPI 2020) (mL/min/1.73m2) Glucose (74-106) mg/dL Calcium (8.5-10.1) mg/dL Magnesium (1.8-2.4) mg/dL Total Bilirubin (0.2-1.0) mg/dL AST (15-37) U/L ALT (16-63) U/L Alkaline Phosphatase (46-116) U/L Troponin I (<or=60) ng/L Total Protein (6.4-8.2) g/dL Albumin (3.4-5.0) g/dL Procalcitonin ng/mL Urine Color Urine Clarity Urine pH Ur Specific [place] Urine Protein Urine Ketones Urine Blood Urine Nitrite Urine Bilirubin Urine Urobilinogen Ur Leukocyte Esterase Urine Glucose Stool Campylobacter PCR Stl C.difficile Tox PCR Stool Salmonella PCR Stool Shigella PCR Ethyl Alcohol Cancelled COVID-19 Source Nasopharynx SARS-CoV-2 (PCR) Negative (Negative) Shiga Toxin (PCR) 08/23/23 11:37 Blood Culture - Pending Blood 08/23/23 11:27 Blood Culture - Pending Blood Intake and Output - 24 Hour Total 08/23/23 10:12 thru 08/23/23 13:20 Intake Total 500 Balance 500 Weight 71.214 kg Intake: IV 500 Other: Urine Color Dark Lexie Ellsworth Urine Appearance Clear Stool Occult Blood Negative Urinary Catheter Urinary Catheter Date of 08/23/23 Insertion [Uretheral (Reeves)] Time of insertion [Uretheral ( 13:20 Reeves)] Falls Risk Assessment History of Falls No History 08/23/23 11:15 Contributing Factors Unstable,Incontinence 08/23/23 11:15 Ambulatory Aids Independent 08/23/23 11:15 Tubes/Lines None 08/23/23 11:15 Gait Evaluation W/any additional score 08/23/23 11:15 Cognition No cognitive impairment 08/23/23 11:15 Fall Total Score 26 08/23/23 11:15 Level of Risk Moderate Risk 08/23/23 11:15 Problems (Updated 08/23/23 @ 12:31 by Tracy Carrera NP) Sepsis (Acute) Alcohol withdrawal (Acute) v v v v v v v v v Sending and/or Receiving Nurses: Please use comment section below to note any information pertinent to the patient hand-off not included above. Information / Comments: Report received from: Zbigniew Paulino RN @ [phone]
[2023-08-23 13:31] LABS: Bacteria Few HPF (Negative); C & S Indicated? Yes; Casts 0-2 Hyaline LPF (Negative); Crystals Negative HPF (Negative); Epithelial Cells Few HPF (Negative); Mucus Trace (Negative); RBC 0-2 HPF (0-2); WBC 0-2 HPF (0-5)
[2023-08-23 13:45] LABS: Troponin I < 50 ng/L (<or=60)
[2023-08-23 14:12] LABS: C Diff PCR Negative (Negative)
--- NOTE | 2023-08-23 15:23 | W.PM.HP.N ---
Date of service: 08/23/23 Time of Service: 15:23 Assessment and Plan Assessment and plan (1) Sepsis: Status: Acute Assessment and plan: most likely d/t urinary source but can not exclude infectious colitis. Check blood and urine cultures. Check CT of the abdomen and pelvis, proceed with him. Broad-spectrum antibiotic coverage with meropenem. Patient briefly required norepinephrine in the emergency department which has since been discontinued. Will continue IV fluid hydration as he most likely has a combination of sepsis and dehydration from his diarrhea. Diarrhea has been going on for 1 to 2 months but his symptoms of generalized malaise and rigors and urinary incontinence have only been present for 2 to 3 days. Denies any cough or shortness of breath or chest pain or palpitations. He denies abdominal pain. Present time he is hemodynamically stable and has been resuscitated with IV fluids. Will continue maintenance fluids of LR at a sufficient rate to maintain euvolemia. I think patient was misdiagnosed as having acute alcohol withdrawal by the ED provider he quit drinking on and has never had a history of alcohol withdrawal or seizures or delirium. He is not experiencing any delirium now. He does have tremors but he said he has had tremors in his hands for couple years this is most like an essential tremor. He is now a couple weeks out from Thanksgiving and therefore unlikely to go through any alcohol withdrawal. Critical care time spent interviewing and examining the patient, reviewing studies, discussing case with patient's nurse and consulting physicians was excluding time spent performing POCUS exams 60 minutes Qualifiers: Sepsis acute organ dysfunction status: without acute organ dysfunction Sepsis type: sepsis due to unspecified organism Qualified Code(s): A41.9 - Sepsis, unspecified organism (2) Diarrhea of presumed infectious origin: Status: Acute Assessment and plan: Check stool for bacterial antigens as well as C. difficile PCR test and obtain stool for calprotectin as well as lactoferrin. Patient's had previous colonoscopies for adenomatous polyps. Last colonoscopy was about 3 years ago. (3) Complicated UTI (urinary tract infection): Status: Acute Assessment and plan: Continue IV Reeves and broad-spectrum antibiotics with meropenem consider addition of vancomycin for coverage for Enterococcus. Bedside POCUS exam of his kidneys did not show any evidence of obstructive uropathy nevertheless because of his diarrhea as well as his UTI we will get dedicated CT of his abdomen and pelvis. (4) Alcoholism: Status: Acute Assessment and plan: Will continue to monitor CIWA scoring but doubt that he is going through any alcohol withdrawal at this point he is far enough out from his last drink. Nevertheless we should get a urine tox screen check a blood alcohol level and proceed with treatment with multivitamin thiamine and folic acid. (5) DVT prophylaxis: Status: Acute Assessment and plan: Enoxaparin 40 mg subcutaneously daily (6) Discharge planning issues: Status: Acute Assessment and plan: he has indicated me that he does not want resuscitation including CPR defibrillation or intubation mechanical ventilation in the event that he has a cardiopulmonary arrest. As such placed a DNR/DNI order on him. History of Present Illness History of Present Illness Chief Complaint: weakness, urinary incontinence and diarrhea, falls Narrative: 77 yr old male w/ hx of alcohol abuse who quit drinking over has been having increased weakness, diarrhea over past month not associated w/ any melena or hematochezia who has had prior hx of polyposis coli w/ regular colonoscopy every 3 yr for past 10 yr, now presents w/ acute urinary incontinence, rectal incontenence, fever up to 102 and chills w/ rigors. No associated cough, dyspnea, CP or abdominal pains or flank pains, nor any hematuria. He denies any dyrsuria or hematuria or flank pain although notes increased left hip pain which has been chronic for a few months but worse over past week along w/ the recent urinary and fecal incontence. ON arrival he was febrile w/ temp of 39.3 C and with leukocytosis of 19,500, procalcitonin 6.0, lacated of 1.5, UA w/ 30 mg/ protein, 40 mg/dL ketones and + nitrites and few bacteria. CXR w/out acute findings. He was treated for sepsis w/ blood and urine cultures and begun on Levaquin and given IV fluids including boluses of LR. There was a question of acute alcohol withdrawal and the ED intially ordered phenobarbital however, the patient has never experienced alcohol withdrawal and has not had any alcohol use since , making acute withdrawal unlikely. The patient was begun on norepinephrine after the fluid bolus in order to maintain adequate BP after fluid boluses. Patient is admitted to the ICU for treatment of hypovolemic shock and sepsis, source either GI or . Review of Systems All systems reviewed & are unremarkable except as noted in HPI and below Constitutional Constitutional: Reports chills, Reports fatigue, Reports fever(s), Reports lethargy, Reports poor appetite and Reports weakness ENT Ears, Nose, Mouth, and Throat: Reports system reviewed and no additional complaints, except as documented Cardiovascular Cardiovascular: Denies chest pain, Denies irregular heart rhythm, Denies palpitations, Denies dyspnea and Denies dyspnea on exertion Respiratory Respiratory: Denies cough, Denies excessive phlegm production, Denies dyspnea and Denies dyspnea on exertion Gastrointestinal Gastrointestinal: Reports fecal incontinence, Reports diarrhea, Reports loose stools, Reports nausea and Denies vomiting Genitourinary Genitourinary: Denies difficulty urinating, Denies dysuria, Reports urinary frequency and Reports urinary incontinence Musculoskeletal Musculoskeletal: Reports myalgias and Reports muscle weakness Integumentary/Breasts Skin/Breast: Reports system reviewed and no additional complaints, except as documented Neurologic Neurologic: Reports system reviewed and no additional complaints, except as documented and Reports weakness Endocrine Endocrine: Reports system reviewed and no additional complaints, except as documented, Reports fatigue and Denies palpitations Hematologic/Lymphatic Hematologic/Lymphatic: Reports system reviewed and no additional complaints, except as documented Allergic/Immunologic Allergic/Immunologic: Reports system reviewed and no additional complaints, except as documented PFSH All Active Problems (Updated 08/23/23 @ 17:39 by Aodlfo Mckenzie MD) Discharge planning issues (Acute) DVT prophylaxis (Acute) Alcoholism (Acute) Complicated UTI (urinary tract infection) (Acute) Diarrhea of presumed infectious origin (Acute) Sepsis (Acute) Alcohol withdrawal (Acute) Infection of superficial incisional surgical site after procedure (Acute) Neoplasm of unspecified behavior of bone, soft tissue, and skin (Acute) Medical History (Updated 08/23/23 @ 17:39 by Adolfo Mckenzie MD) Hx of adenomatous polyp of colon Macrocytosis Erectile dysfunction Megaloblastic anemia Elevated blood pressure reading Glaucoma Hearing loss Loss of balance Mild cognitive impairment, so stated Alcohol abuse Tremor Prediabetes Basal cell carcinoma Skin cancer, basal cell Surgical History (Updated 05/24/23 @ 14:02 by Viola Ramon) History of tonsillectomy History of robot-assisted laparoscopic radical prostatectomy History of colon resection 14cm removed, per pt. -BR History of ankle surgery ankle pinning 50 yrs ago History of colonoscopy Family History (Updated 05/24/23 @ 14:02 by Viola Ramon) Father Cancer Heart disease Social History Smoking/Tobacco Use Status: Former Tobacco Use Smoking risk assessment performed?: Yes Alcohol Intake: former Drug use: Never Substance use type: does not use Details: PER PT- QUIT DRINKING 2-3WEEKS AGO Housing: house Do you feel safe at home: Yes Do you feel safe in your relationship?: Yes Meds Allergies and Home Medications Allergies Allergy/AdvReac Type Severity Reaction Status Date / Time Penicillins AdvReac Unknown Hives Unverified 07/17/19 06:25 Home Medications Medication Instructions Recorded Confirmed Type cyanocobalamin (vitamin B-12) 1,000 mcg PO DAILY 07/13/19 08/23/23 History 1,000 mcg tablet (Vitamin B-12) cholecalciferol (vitamin D3) 10 10 mcg PO DAILY 05/25/23 08/23/23 History mcg (400 unit) tablet folic acid 1 mg tablet 1 mg PO DAILY 05/25/23 08/23/23 History latanoprost 0.005 % eye drops 1 drp ophthalmic (eye) DAILY 05/25/23 08/23/23 History timolol maleate 0.25 % eye drops 1 drp ophthalmic (eye) DAILY 05/25/23 08/23/23 History Exam Narrative Exam Narrative: Elderly male who appears to be in no acute distress, alert and oriented x 2, nondiaophoretic HEENT: unrremarkable, no icterus, mucous membranes moist, no cyanosis, normal EOMI, normal speech Neck: neck veins flat, neck supple nontender, normal carotid pulses Lungs: clear to ausculatation Heart: regular, no m,r,g Abdomen: soft, nontender, normal bowel sounds, no organomegaly Extremities:normal capillary refill, warm, normal pulses, no cyanosis or edema. Normal ROM of his lower extremities w/ normal strength, no reproducible hip pain w/ palpation nor w/ internal or external rotation. Neuro: normal CN, no motor or sensory deficits, patient w/ intention tremors Patient incontinent of large amount of light brown stool Results Labs 08/24/23 05:39 08/24/23 05:39 Labs: Laboratory Results - last 24 hr 08/23/23 08/23/23 08/23/23 10:19 10:50 10:56 WBC 19.53 H RBC 3.77 L Hgb 11.9 L Hct 35.1 L MCV 93 MCH 31.6 MCHC 33.9 RDW 12.1 Plt Count 463 H MPV 9.2 Immature Gran % 0.8 Neutrophils % 80.1 Lymphocytes % 10.3 Monocytes % 7.8 Eosinophils % 0.4 Basophils % 0.6 Nucleated RBC % 0.0 Absolute Neutrophils 15.64 H Absolute Lymphocytes 2.01 Absolute Monocytes 1.52 H Absolute Eosinophils 0.08 Absolute Basophils 0.12 RBC Morphology Normal VBG pH 7.38 VBG pCO2 38 L VBG pO2 27 VBG HCO3 23 VBG Total CO2 21 L VBG O2 Saturation 45 VBG Base Excess -3 L VBG Lactate 1.5 H Sodium 128 L Potassium 3.5 Chloride 92 L Carbon Dioxide 22.4 Anion Gap 13.6 H BUN 22 H Creatinine 1.0 Est GFR (CKD-EPI 2020) 78.49 Glucose 78 Calcium 9.4 Magnesium 1.9 Total Bilirubin 1.4 H AST 33 ALT 20 Alkaline Phosphatase 115 Troponin I < 50 Total Protein 7.0 Albumin 2.5 L Procalcitonin 6.0 Urine Color Urine Clarity Urine pH Ur Specific [place] Urine Protein Urine Ketones Urine Blood Urine Nitrite Urine Bilirubin Urine Urobilinogen Ur Leukocyte Esterase Urine RBC Urine WBC Ur Epithelial Cells Urine Crystals Urine Bacteria Urine Casts Urine Mucus Ur Culture Indicated? Urine Glucose Stl C.difficile Tox PCR Ethyl Alcohol Cancelled < 3.0 COVID-19 Source Nasopharynx SARS-CoV-2 (PCR) Negative 08/23/23 08/23/23 08/23/23 13:15 13:19 13:20 WBC RBC Hgb Hct MCV MCH MCHC RDW Plt Count MPV Immature Gran % Neutrophils % Lymphocytes % Monocytes % Eosinophils % Basophils % Nucleated RBC % Absolute Neutrophils Absolute Lymphocytes Absolute Monocytes Absolute Eosinophils Absolute Basophils RBC Morphology VBG pH VBG pCO2 VBG pO2 VBG HCO3 VBG Total CO2 VBG O2 Saturation VBG Base Excess VBG Lactate 1.1 Sodium Potassium Chloride Carbon Dioxide Anion Gap BUN Creatinine Est GFR (CKD-EPI 2020) Glucose Calcium Magnesium Total Bilirubin AST ALT Alkaline Phosphatase Troponin I Total Protein Albumin Procalcitonin Urine Color [place] Urine Clarity Clear Urine pH 5.5 Ur Specific [place] 1.015 Urine Protein 30 H Urine Ketones 40 H Urine Blood Trace-intact H Urine Nitrite Positive H Urine Bilirubin Moderate H Urine Urobilinogen 2.0 H Ur Leukocyte Esterase Negative Urine RBC 0-2 Urine WBC 0-2 Ur Epithelial Cells Few Urine Crystals Negative Urine Bacteria Few Urine Casts 0-2 Hyaline Urine Mucus Trace Ur Culture Indicated? Yes Urine Glucose Negative Stl C.difficile Tox PCR Negative Ethyl Alcohol COVID-19 Source SARS-CoV-2 (PCR) 08/23/23 13:21 WBC RBC Hgb Hct MCV MCH MCHC RDW Plt Count MPV Immature Gran % Neutrophils % Lymphocytes % Monocytes % Eosinophils % Basophils % Nucleated RBC % Absolute Neutrophils Absolute Lymphocytes Absolute Monocytes Absolute Eosinophils Absolute Basophils RBC Morphology VBG pH VBG pCO2 VBG pO2 VBG HCO3 VBG Total CO2 VBG O2 Saturation VBG Base Excess VBG Lactate Sodium Potassium Chloride Carbon Dioxide Anion Gap BUN Creatinine Est GFR (CKD-EPI 2020) Glucose Calcium Magnesium Total Bilirubin AST ALT Alkaline Phosphatase Troponin I < 50 Total Protein Albumin Procalcitonin Urine Color Urine Clarity Urine pH Ur Specific [place] Urine Protein Urine Ketones Urine Blood Urine Nitrite Urine Bilirubin Urine Urobilinogen Ur Leukocyte Esterase Urine RBC Urine WBC Ur Epithelial Cells Urine Crystals Urine Bacteria Urine Casts Urine Mucus Ur Culture Indicated? Urine Glucose Stl C.difficile Tox PCR Ethyl Alcohol COVID-19 Source SARS-CoV-2 (PCR) Last Vital Signs Temp 36.7 C 08/23/23 14:22 Pulse 96 H 08/23/23 14:16 Resp 21 08/23/23 14:16 BP 102/63 08/23/23 14:16 Pulse Ox 100 08/23/23 14:16 PAWSS Have you Been Recently Intoxicated or Drunk Within the Last 30 days?: No Have you Ever Experienced Previous Episodes of Alcohol Withdrawal?: No Have you ever Experienced Withdrawal Seizures?: No Have you ever Experienced Delirium Tremens(DT)s?: No Have you ever undergone Alcohol Rehabilitation Treatment (i.e, inpt ot outpatient treatment programs)?: No Have you ever Experienced Blackouts?: No Have you ever Combined Alcohol with other Downers within the last 90 days?: No Have you ever Combined Alcohol with any other Substance of Abuse during the last 90 days?: No Positive Blood Alcohol level on Presentation? [PCS.BAL]: No Evidence of Increased Autonomic Activity (i.e. HR>120, tremor, sweating, agitation, nausea)?: No Result: 0 Time Spent Time spent with Patient: 55-74 minutes Time was spent: preparing to see the patient(eg.review tests), obtaining and/or reviewing separately otained hiistory, ordering medications,tests, procedures, referring, communicating with other health hospice care transitions coordinator, indepentently interpreting results, counseling the patient and care coordination
[2023-08-23 16:36] LABS: Lactate 1.3 mmol/L (0.6-1.4)
--- NOTE | 2023-08-23 16:52 | W.POCUS ---
Pocus Exam Limited Retroperitoneal(Renal)Exam DATE OF EXAM: 08/23/23 TIME OF EXAM: 15:47 PROVIDER THAT PERFORMED THE STUDY: Adolfo Mckenzie REASON FOR EXAM: Other (UTI, sepsis, r/o obstructive uropathy) indication: sepsis VISUALIZED STRUCTURES: left kidney, right kidney, Renal pelvis,left side and Renal pelvis, right side PERTINENT FINDINGS/IMPRESSION: No apparent abnormalities; no hydronephrosis present and no nephrolithiasis noted Exam complete
--- NOTE | 2023-08-23 16:55 | POCUS_ITS ---
Pocus Exam Limited Cardiac Exam DATE OF EXAM: 08/23/23 TIME OF EXAM: 15:57 PROVIDER THAT PERFORMED THE STUDY: Adolfo Mckenzie IS THIS A REPEAT EXAM DURING THIS ENCOUNTER: no REASON FOR EXAM: Hypotension, Hypovolemic shock and Septic Shock VISUALIZED STRUCTURES: four chambers, left atrium, left ventricle, LVOT, right atrium, right ventricle, aortic valve and Interventricular septum VIEW OBTAINED: Apical 4-Chamber, Parasternal long-axis and Parasternal short- axis PERTINENT FINDINGS/IMPRESSION: No apparent abnormalities INCIDENTAL FINDINGS: Unable to obtain adequate subxiphoid view of heart and IVC; LVOT clearly seen and VTI obtained pre/post PLR, VTI pre-passive leg raise was 34 cm, post VTI was 36.3 cm, thus only 6% increase suggesting non-responsiveness to further iv fluid boluses. RV and LV size and function appear normal. No significant MR or TR or AI was detected on color doppler, no wall motion abnormalites seen on LV in multiple windows. Exam complete
[2023-08-23 16:56] LABS: Anion Gap 10.5 mmol/L (3-11); BUN 18 mg/dL (7-18); CO2 21.5 mmol/L (21.0-32.0); CREATININE 0.8 mg/dL (0.70-1.30); Calcium 8.7 mg/dL (8.5-10.1); Chloride 96 mmol/L (98-107); Estimated GFR 92.29 (mL/min/1.73m2); Glucose 72 mg/dL (74-106); Sodium 128 mmol/L (136-145); Troponin I < 50 ng/L (<or=60)
[2023-08-23] MEDS: Enoxaparin 40 MG/0.4 ML SYR SC (17:59)
[2023-08-23] MEDS: Loperamide 2 MG CAP 4 MG PO (18:00)
[2023-08-23] MEDS: Thiamine 100 MG TAB PO (18:00)
[2023-08-23] MEDS: Pantoprazole 40 MG VIAL IVP (18:00)
[2023-08-23 18:01] LABS: Lab Add On Test DONE
[2023-08-23] MEDS: Normal Saline Flush 10 ML SYR IVP ×2 (18:01→23:59)
[2023-08-23] MEDS: Lactated Ringers 1,000 ML 100 ML IV (18:15)
[2023-08-23 18:48] LABS: Folate > 20.0 ng/mL (8.6-20.0); Vitamin B12 > 2000 pg/mL (193-986)
[2023-08-23 19:21] LABS: C Diff PCR Negative (Negative)
[2023-08-23] MEDS: Psyllium PKT 1 EACH PO (19:32)
[2023-08-23] MEDS: Latanoprost 0.005% 2.5 ML BTL OU (19:33)
[2023-08-23] MEDS: Ibuprofen 800 MG TAB PO (21:05)
[2023-08-23] MEDS: Lactated Ringers 250 ML 1000 ML IV (21:05)
[2023-08-23] MEDS: Norepinephrine in D5W 8 MG/250 ML BAG 9.375 MG IV (21:58)
[2023-08-23] MEDS: Loperamide 2 MG CAP PO (23:58)
[2023-08-24] VITALS (48 sets, daily range): BP systolic 85–106; BP diastolic 52–67; PULSE 67–97; RESP 12–23; TEMP 36.1–37.6; O2SAT 96–99
--- NOTE | 2023-08-24 | DI.RAD_ITS ---
Exam(s) XR HIP LT COMPLETE AP PELVIS EXAM: XR HIP LT COMPLETE AP PELVIS CLINICAL HISTORY: left hip pain. TECHNIQUE: 2D digital imaging was performed. Two views. COMPARISON: CR ABD FLAT UPRIGHT PA CHEST from 07/15/[address] ABDOMEN PELVIS WO from 08/24/2023 FINDINGS: BONES: No acute fracture is present. No bony destructive lesion is seen. JOINTS: No dislocation present. Mild acetabular spurring. SI joints unremarkable. Pubic symphysis n ot widened. SOFT TISSUE: Bladder catheter. IMPRESSION: Mild degenerative changes. No acute abnormality. DATA REPOSITORY: RADIATION DOSE DELIVERED:
[2023-08-24] MEDS: Normal Saline 500 ML 30 ML IV (02:05)
--- NOTE | 2023-08-24 02:29 | NUR.NOTE ---
Nursing Note: Patient with increased urine output, decreased Norepinehrine to 7mcg/min, MBP >65
[2023-08-24] MEDS: Lactated Ringers 1,000 ML 100 ML IV ×2 (05:32→15:56)
[2023-08-24 05:51] LABS: Abs Immature Grans 0.11 10^3/uL (0.0-0.06); Absolute Basophil Count 0.07 10^3/uL (0.0-0.2); Basophils % 0.4; Eosinophils % 0.5; HCT 30.5 % (40.0-50.0); HGB 10.3 g/dL (13.5-17.5); Immature Grans % 0.7; Lymphocytes % 6.3; MCH 31.7 pg (27.0-33.0); MCHC 33.8 % (32.0-36.0); MCV 94 fL (80-95); MPV 9.3 fL (8.0-11.0); Monocytes % 7.1; Platelet Count 311 10^3/uL (130-400); RBC 3.25 10^6/uL (4.36-5.78); RDW 11.9 % (11.8-14.1); RDW-SD 41.2 fL; WBC 16.44 10^3/uL (4.4-10.8)
[2023-08-24 05:52] LABS: Absolute Eosinophil Count 0.08 10^3/uL (0.0-0.7); Absolute Lymphocyte Count 1.04 10^3/uL (1.2-3.4); Absolute Monocyte Count 1.17 10^3/uL (0.1-0.8); Absolute Neutrophil Count 13.97 10^3/uL (1.2-6.7)
[2023-08-24 06:16] LABS: ALT 18 U/L (16-63); AST 32 U/L (15-37); Albumin 1.8 g/dL (3.4-5.0); Alkaline Phosphatase 98 U/L (46-116); Anion Gap 7.3 mmol/L (3-11); BUN 10 mg/dL (7-18); Bilirubin, Total 0.8 mg/dL (0.2-1.0); CO2 25.7 mmol/L (21.0-32.0); CREATININE 0.9 mg/dL (0.70-1.30); Calcium 8.5 mg/dL (8.5-10.1); Chloride 102 mmol/L (98-107); Estimated GFR 89.07 (mL/min/1.73m2); Glucose 161 mg/dL (74-106); Potassium 3.3 mmol/L (3.5-5.1); Sodium 135 mmol/L (136-145); TSH 3.27 uIU/mL (0.36-3.74); Total Protein 5.3 g/dL (6.4-8.2)
[2023-08-24 08:07] LABS: Lab Add On Test COMPLETED
[2023-08-24 08:15] LABS: Magnesium 1.6 mg/dL (1.8-2.4)
--- NOTE | 2023-08-24 08:15 | W.PM.PROGNOT ---
Date of Service Date of service: 08/24/23 Time of Service: 08:15 Assessment and Plan Assessment and plan (1) Sepsis: Status: Acute Assessment and plan: secondary to gram negative bacteremia, likely source is urinary however, in light of his diarrhea, can not exclude GI source. Stool was negative for C diff, stool bacterial antigen testing is pending. Will get CT abdomen and pelvis this morning and plain films of pelvis and both hips given his complaints of left hip pain. He was on norepinephrine drip last night was weaned off by this morning. Diarrhea has slowed down. continue iv fluid support to keep euvolemic. If he remains hemodynamically stable this morning then he can be transferred to med/surg this afternoon. Critical care time 40 minutes Qualifiers: Sepsis type: sepsis due to unspecified organism Sepsis acute organ dysfunction status: without acute organ dysfunction Qualified Code(s): A41.9 - Sepsis, unspecified organism (2) Gram-negative bacteremia: Status: Acute Assessment and plan: continud Meropenem, pending identification and sensitivities. CT as above to look for source of sepsis and his pain. (3) Diarrhea of presumed infectious origin: Status: Acute Assessment and plan: Stool negative for C diff. Stool bacterial antigens are pending. Lactoferrin positive. Calprotectin pending. Will check CT abdomen and pelvis as noted above. Patient's had previous colonoscopies for adenomatous polyps. Last colonoscopy was about 3 years ago. (4) Complicated UTI (urinary tract infection): Status: Acute Assessment and plan: Continue IV Reeves and broad-spectrum antibiotics with meropenem, in light of gram negative bacteremia, no need to add Vancomycin. (5) Left hip pain: Status: Acute Assessment and plan: will treat w/ oxycodone/APAP and prn iv morphine for breakthrough pain. workup as above. check PSA given his urinary difficulties, r/o prostate cancer (6) Alcoholism: Status: Acute Assessment and plan: Will continue to monitor CIWA scoring but doubt that he is going through any alcohol withdrawal at this point he is far enough out from his last drink. Nevertheless we should get a urine tox screen check a blood alcohol level and proceed with treatment with multivitamin thiamine and folic acid. (7) DVT prophylaxis: Status: Acute Assessment and plan: Enoxaparin 40 mg subcutaneously daily (8) Discharge planning issues: Status: Acute Assessment and plan: he has indicated me that he does not want resuscitation including CPR defibrillation or intubation mechanical ventilation in the event that he has a cardiopulmonary arrest. As such placed a DNR/DNI order on him. Subjective Subjective Interval history since last seen: No nausea, vomiting or abdominal pain but continues w/ left hip pain. We will get CT of his abdomen and pelvis looking for any pathology of his pelvis/hip or intrabdominal process given his diarrhea. Blood cultures now + for GNR, urinary source is likely. Exam Narrative Exam Narrative: Bo is lying in bed, complaining of left hip pain but not in severe pain Lungs: clear Heart: RRR Abdomen: soft, nontender, normal bowel sounds Left hip nontender to palpation w/ normal ROM Extremities: warm and dry, no cyanosis Objective Last Vital Signs Temp 36.3 C L 08/24/23 06:01 Pulse 78 08/24/23 07:01 Resp 16 08/24/23 07:01 BP 92/64 L 08/24/23 07:01 Pulse Ox 97 08/24/23 07:01 Laboratory Results - last 24 hr 08/23/23 08/23/23 08/23/23 10:19 10:50 10:56 WBC 19.53 H RBC 3.77 L Hgb 11.9 L Hct 35.1 L MCV 93 MCH 31.6 MCHC 33.9 RDW 12.1 Plt Count 463 H MPV 9.2 Immature Gran % 0.8 Neutrophils % 80.1 Lymphocytes % 10.3 Monocytes % 7.8 Eosinophils % 0.4 Basophils % 0.6 Nucleated RBC % 0.0 Absolute Neutrophils 15.64 H Absolute Lymphocytes 2.01 Absolute Monocytes 1.52 H Absolute Eosinophils 0.08 Absolute Basophils 0.12 RBC Morphology Normal VBG pH 7.38 VBG pCO2 38 L VBG pO2 27 VBG HCO3 23 VBG Total CO2 21 L VBG O2 Saturation 45 VBG Base Excess -3 L VBG Lactate 1.5 H Sodium 128 L Potassium 3.5 Chloride 92 L Carbon Dioxide 22.4 Anion Gap 13.6 H BUN 22 H Creatinine 1.0 Est GFR (CKD-EPI 2020) 78.49 Glucose 78 Calcium 9.4 Magnesium 1.9 Total Bilirubin 1.4 H AST 33 ALT 20 Alkaline Phosphatase 115 Troponin I < 50 Total Protein 7.0 Albumin 2.5 L Vitamin B12 > 2000 H Folate > 20.0 H Procalcitonin 6.0 TSH Urine Color Urine Clarity Urine pH Ur Specific [place] Urine Protein Urine Ketones Urine Blood Urine Nitrite Urine Bilirubin Urine Urobilinogen Ur Leukocyte Esterase Urine RBC Urine WBC Ur Epithelial Cells Urine Crystals Urine Bacteria Urine Casts Urine Mucus Ur Culture Indicated? Urine Glucose Stl C.difficile Tox PCR Ethyl Alcohol Cancelled < 3.0 COVID-19 Source Nasopharynx SARS-CoV-2 (PCR) Negative Add-On Test Request 08/23/23 08/23/23 08/23/23 13:15 13:19 13:20 WBC RBC Hgb Hct MCV MCH MCHC RDW Plt Count MPV Immature Gran % Neutrophils % Lymphocytes % Monocytes % Eosinophils % Basophils % Nucleated RBC % Absolute Neutrophils Absolute Lymphocytes Absolute Monocytes Absolute Eosinophils Absolute Basophils RBC Morphology VBG pH VBG pCO2 VBG pO2 VBG HCO3 VBG Total CO2 VBG O2 Saturation VBG Base Excess VBG Lactate 1.1 Sodium Potassium Chloride Carbon Dioxide Anion Gap BUN Creatinine Est GFR (CKD-EPI 2020) Glucose Calcium Magnesium Total Bilirubin AST ALT Alkaline Phosphatase Troponin I Total Protein Albumin Vitamin B12 Folate Procalcitonin TSH Urine Color [place] Urine Clarity Clear Urine pH 5.5 Ur Specific [place] 1.015 Urine Protein 30 H Urine Ketones 40 H Urine Blood Trace-intact H Urine Nitrite Positive H Urine Bilirubin Moderate H Urine Urobilinogen 2.0 H Ur Leukocyte Esterase Negative Urine RBC 0-2 Urine WBC 0-2 Ur Epithelial Cells Few Urine Crystals Negative Urine Bacteria Few Urine Casts 0-2 Hyaline Urine Mucus Trace Ur Culture Indicated? Yes Urine Glucose Negative Stl C.difficile Tox PCR Negative Ethyl Alcohol COVID-19 Source SARS-CoV-2 (PCR) Add-On Test Request 08/23/23 08/23/23 08/23/23 13:21 16:30 17:00 WBC RBC Hgb Hct MCV MCH MCHC RDW Plt Count MPV Immature Gran % Neutrophils % Lymphocytes % Monocytes % Eosinophils % Basophils % Nucleated RBC % Absolute Neutrophils Absolute Lymphocytes Absolute Monocytes Absolute Eosinophils Absolute Basophils RBC Morphology VBG pH VBG pCO2 VBG pO2 VBG HCO3 VBG Total CO2 VBG O2 Saturation VBG Base Excess VBG Lactate 1.3 Sodium 128 L Potassium 4.0 Chloride 96 L Carbon Dioxide 21.5 Anion Gap 10.5 BUN 18 Creatinine 0.8 Est GFR (CKD-EPI 2020) 92.29 Glucose 72 L Calcium 8.7 Magnesium Total Bilirubin AST ALT Alkaline Phosphatase Troponin I < 50 < 50 Total Protein Albumin Vitamin B12 Folate Procalcitonin TSH Urine Color Urine Clarity Urine pH Ur Specific [place] Urine Protein Urine Ketones Urine Blood Urine Nitrite Urine Bilirubin Urine Urobilinogen Ur Leukocyte Esterase Urine RBC Urine WBC Ur Epithelial Cells Urine Crystals Urine Bacteria Urine Casts Urine Mucus Ur Culture Indicated? Urine Glucose Stl C.difficile Tox PCR Negative Ethyl Alcohol COVID-19 Source SARS-CoV-2 (PCR) Add-On Test Request 08/23/23 08/24/23 08/24/23 17:59 05:39 08:07 WBC 16.44 H RBC 3.25 L Hgb 10.3 L Hct 30.5 L MCV 94 MCH 31.7 MCHC 33.8 RDW 11.9 Plt Count 311 MPV 9.3 Immature Gran % 0.7 Neutrophils % 85.0 Lymphocytes % 6.3 Monocytes % 7.1 Eosinophils % 0.5 Basophils % 0.4 Nucleated RBC % 0.0 Absolute Neutrophils 13.97 H Absolute Lymphocytes 1.04 L Absolute Monocytes 1.17 H Absolute Eosinophils 0.08 Absolute Basophils 0.07 RBC Morphology VBG pH VBG pCO2 VBG pO2 VBG HCO3 VBG Total CO2 VBG O2 Saturation VBG Base Excess VBG Lactate Sodium 135 L Potassium 3.3 L Chloride 102 Carbon Dioxide 25.7 Anion Gap 7.3 BUN 10 Creatinine 0.9 Est GFR (CKD-EPI 2020) 89.07 Glucose 161 H Calcium 8.5 Magnesium Total Bilirubin 0.8 AST 32 ALT 18 Alkaline Phosphatase 98 Troponin I Total Protein 5.3 L Albumin 1.8 L Vitamin B12 Folate Procalcitonin TSH 3.27 Urine Color Urine Clarity Urine pH Ur Specific [place] Urine Protein Urine Ketones Urine Blood Urine Nitrite Urine Bilirubin Urine Urobilinogen Ur Leukocyte Esterase Urine RBC Urine WBC Ur Epithelial Cells Urine Crystals Urine Bacteria Urine Casts Urine Mucus Ur Culture Indicated? Urine Glucose Stl C.difficile Tox PCR Ethyl Alcohol COVID-19 Source SARS-CoV-2 (PCR) Add-On Test Request DONE COMPLETED PAWSS Have you Been Recently Intoxicated or Drunk Within the Last 30 days?: No Have you Ever Experienced Previous Episodes of Alcohol Withdrawal?: No Have you ever Experienced Withdrawal Seizures?: No Have you ever Experienced Delirium Tremens(DT)s?: No Have you ever undergone Alcohol Rehabilitation Treatment (i.e, inpt ot outpatient treatment programs)?: No Have you ever Experienced Blackouts?: No Have you ever Combined Alcohol with other Downers within the last 90 days?: No Have you ever Combined Alcohol with any other Substance of Abuse during the last 90 days?: No Positive Blood Alcohol level on Presentation? [PCS.BAL]: No Evidence of Increased Autonomic Activity (i.e. HR>120, tremor, sweating, agitation, nausea)?: No Result: 0 Time Spent with Patient Time Spent with Patient: 35-49 minutes Time was spent: preparing to see the patient(eg.review tests), ordering medications,tests, procedures, referring, communicating with other health acute care occupational therapist, indepentently interpreting results, counseling the patient and care coordination
[2023-08-24] MEDS: oxyCODONE 5 mg/Acetaminophen 325 mg TAB PO ×2 (08:28→13:15)
--- NOTE | 2023-08-24 08:51 | PDOC.CMIN ---
Date of service: 08/24/23 Time of Service: 08:52 Care Management Initial Assmt Initial Assessment REASON FOR HOSPITALIZATION:: alcohol withdrawal, sepsis PREVIOUS FUNCTIONAL STATUS/SOCIAL/FAMILY SUPPORTS:: Harrison lives in a single family home in [place] with his Sania. They have two children; their daughter Yamileth is a nurse at [employer] and they have a son who lives locally. Harrison shared that they are a close and supportive family. 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 He does not use a cane or a walker for ambulatory assistance however in the past few months his mobility has been affected by the pain in his hip. He does not receive any community services. CURRENT FUNCTIONAL STATUS:: Harrison was dozing in bed when CM met with him. He was polite and answered questions but did not volunteer any additional information. Harrison has gram negative bacteremia with sepsis. Imaging of his abdomen revealed a large mass arising from his sacrum and also bilateral adrenal masses suspicious for metastatic disease. He had not been told of the findings at the time of the CM visit. ADVANCE DIRECTIVES:: none Has patient been provided with info about the portal/API?: Yes Did the patient sign up for the portal?: No CODE STATUS:: DNR/DNI INSURANCE COVERAGE / FINANCIAL ISSUES:: Medicare [employer] senior supplement CURRENT HOME/COMMUNITY SERVICES/EQUIPMENT:: none PRIMARY CARE PHYSICIAN:: Genevieve Peterson POTENTIAL DISCHARGE NEEDS:: follow up with PCP and plan of care PATIENT/FAMILY EDUCATION NEEDS:: Review of discharge instructions, ITA resources, limitations, follow up plan, discuss [employer] Me [employer] TRANSPORTATION:: via private vehicle with family PLAN:: Anticipate Harrison will be discharged home with no new services when medically cleared by provider. He will follow up with his community providers and plan of care and transport with family. He will likely require a biopsy and outpatient workup of the CT findings. CM will follow and continue to assess for discharge needs. PFSH All Active Problems (Updated 08/24/23 @ 08:28 by Adolfo Mckenzie MD) Gram-negative bacteremia (Acute) Left hip pain (Acute) Discharge planning issues (Acute) DVT prophylaxis (Acute) Alcoholism (Acute) Complicated UTI (urinary tract infection) (Acute) Diarrhea of presumed infectious origin (Acute) Sepsis (Acute) Alcohol withdrawal (Acute) Infection of superficial incisional surgical site after procedure (Acute) Neoplasm of unspecified behavior of bone, soft tissue, and skin (Acute) Medical History (Updated 08/24/23 @ 08:28 by Adolfo Mckenzie MD) Hx of adenomatous polyp of colon Macrocytosis Erectile dysfunction Megaloblastic anemia Elevated blood pressure reading Glaucoma Hearing loss Loss of balance Mild cognitive impairment, so stated Alcohol abuse Tremor Prediabetes Basal cell carcinoma Skin cancer, basal cell Surgical History (Updated 05/24/23 @ 14:02 by Viola Ramon) History of tonsillectomy History of robot-assisted laparoscopic radical prostatectomy History of colon resection 14cm removed, per pt. -BR History of ankle surgery ankle pinning 50 yrs ago History of colonoscopy Family History (Updated 05/24/23 @ 14:02 by Viola Ramon) Father Cancer Heart disease Social History Smoking/Tobacco Use Status: Former Tobacco Use Smoking risk assessment performed?: Yes Alcohol Intake: former Drug use: Never Substance use type: does not use Details: PER PT- QUIT DRINKING 2-3WEEKS AGO Housing: house Do you feel safe at home: Yes Do you feel safe in your relationship?: Yes
--- NOTE | 2023-08-24 08:55 | DI.CT_ITS ---
Exam(s) CT ABDOMEN PELVIS WO EXAM: CT ABDOMEN PELVIS WO CLINICAL HISTORY: gram negative sepsis, UTI, enterocolitis. TECHNIQUE: Imaging Protocol: Axial computed tomography images with coronal and sagittal reformatted images were created and reviewed. COMPARISON: US ABDOMEN ULTRASOUND (P) from 08/16/2012 CR XR HIP LT COMPLETE AP PELVIS from 08/24/2023 FINDINGS: ABDOMEN: Lung Bases: Mild bilateral basilar atelectasis. Liver: Normal density. No measurable mass. Gallbladder and biliary tract: No radiodense calculus or biliary ductal dilation. There is mild edema seen in the soft tissues around the gallbladder. Pancreas: Normal density, no abnormal calcifications or inflammatory process. Spleen: Normal. Kidneys: Normal size, contour and axis.No radiodense stones or obstructive uropathy. There is a 1.9 x 1.9 cm cyst in the right kidney. Adrenal glands: There are bilateral adrenal masses. There is a 3.7 x 2.7 cm right adrenal mass. The re is thickening of the limbs of the left adrenal gland. There is a 1.6 x 1.7 cm left adrenal nodule . Lymph nodes: Within normal limits. Abdominal Aorta: Abdominal portion non-dilated. Atherosclerosis is present. PELVIS: Bladder:There is a Reeves catheter within the urinary bladder. The urinary bladder is incompletely di stended limiting evaluation. Bowel: There is diverticulosis of the colon. No evidence of acute diverticulitis. There is no evide nce of bowel obstruction. Postsurgical changes are seen in the right lower quadrant. The rectum is fluid-filled. No evidence of appendicitis. Peritoneal cavity: No ascites, collection or mesenteric inflammatory response. No free air. Reproductive organs: Unremarkable as visualized. Bones: There is a large mass which appears to be arising from the lower sacrum and coccyx it is hypod ense with areas of calcification seen. It extends through the sciatic notch. It measures 10.7 cm cr aniocaudad by 13.3 cm AP. Erosive changes are seen involving the ischium and iliac bone. It displac es the urinary bladder anteriorly and the rectosigmoid colon to the right. Soft Tissues: There is a small fat containing left inguinal hernia. There is a small fat containing umbilical hernia. IMPRESSION: 1. Large mass which appears to be arising from the sacrum and extending through the sciatic notch. I t causes erosion of adjacent bone in the left pelvis. Findings are most suspicious for neoplasm. It causes displacement to the right of the rectosigmoid colon and the urinary bladder anteriorly. 2. Bilateral adrenal masses. 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 3. Diverticulosis of the colon without evidence of acute diverticulitis. 4. Mild bilateral basilar atelectasis. RADIATION DOSE DELIVERED: Total DLP DATA REPOSITORY: All CT scans at this facility are submitted to the National Radiology Data Registry (NRDR) Dose Index Registry (DIR) with the [employer] (ACR). RADIATION OPTIMIZATION: All CT scans at this facility use at least one of these dose optimization te chniques: automated exposure control; mA and/or kV adjustment per patient size (includes targeted exa ms where dose is matched to clinical indication); or iterative reconstruction.
[2023-08-24] MEDS: Cholecalciferol (Vitamin D3) 400 UNIT TAB PO (09:38)
[2023-08-24] MEDS: Cyanocobalamin 500 MCG TAB 1000 MCG PO (09:38)
[2023-08-24] MEDS: Psyllium PKT 1 EACH PO ×2 (09:39→20:32)
[2023-08-24] MEDS: Thiamine 100 MG TAB PO (09:39)
[2023-08-24] MEDS: Folic Acid 1 MG TAB PO (09:39)
[2023-08-24] MEDS: Normal Saline Flush 10 ML SYR IVP ×2 (09:40→20:40)
[2023-08-24 09:53] LABS: Lab Add On Test COMPLETED
[2023-08-24] MEDS: Potassium Chloride 10 MEQ CAPCR 40 MEQ PO (10:20)
[2023-08-24] MEDS: Pantoprazole 40 MG TABCR PO (10:20)
--- NOTE | 2023-08-24 10:45 | IN_ITS ---
PT Notes Visit Reasons: Sepsis, Pneumonia Physical Therapy Inpatient Initial Evaluation Date: 08/24/2023 Referring Doctor: Adolfo Mckenzie MD PT Orders: PT CONSULT: Exacerbation Chronic Cond Precautions: Fall. Standard. Activity as tolerated. DNR/DNI. Patient Profile/Admitting Diagnosis: Bo is a 77-year-old male presented to the ED 08/23/2023 due to increased shakes related to drinking with a fall on 08/21/2023 and to fever and rigors, found by EMS covered in stool. Patient is admitted for management of sepsis, and presumed infectious origin, complicated UTI, alcoholism. 08/24/2023 Abdominal/Pelvic CT impression: 1. Large mass which appears to be arising from the sacrum and extending through the sciatic notch. It causes erosion of adjacent bone in the left pelvis. Findings are most suspicious for neoplasm. It causes displacement to the right of the rectosigmoid colon and the urinary bladder anteriorly. 2. Bilateral adrenal masses. 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 3. Diverticulosis of the colon without evidence of acute diverticulitis. 4. Mild bilateral basilar atelectasis. PMHX: All Active Problems (Updated 08/23/23 @ 17:39 by Adolfo Mckenzie MD) Discharge planning issues (Acute) DVT prophylaxis (Acute) Alcoholism (Acute) Complicated UTI (urinary tract infection) (Acute) Diarrhea of presumed infectious origin (Acute) Sepsis (Acute) Alcohol withdrawal (Acute) Infection of superficial incisional surgical site after procedure (Acute) Neoplasm of unspecified behavior of bone, soft tissue, and skin (Acute) Medical History (Updated 08/23/23 @ 17:39 by Adolfo Mckenzie MD) Hx of adenomatous polyp of colon Macrocytosis Erectile dysfunction Megaloblastic anemia Elevated blood pressure reading Glaucoma Hearing loss Loss of balance Mild cognitive impairment, so stated Alcohol abuse Tremor Prediabetes Basal cell carcinoma Skin cancer, basal cell Surgical History (Updated 05/24/23 @ 14:02 by Viola Ramon) History of tonsillectomy History of robot-assisted laparoscopic radical prostatectomy History of colon resection 14cm removed, per pt. -BR History of ankle surgery ankle pinning 50 yrs ago History of colonoscopy Social History/Home Situation: Lives with in a private home with 3 steps with a rail on one side to enter. Independent with aspects of ADLs although recently has needed to hold onto furniture's while walking inside the house. Equipment Owned/DME: None Subjective: I do not feel like I am up to doing anything today. I feel weak. States that he has had difficulty determining whether he has had a bowel movement or not. Complained of pain in L hip at 7-8/10 with weight bearing. Hoping to go home as soon as cleared. Objective: General Observation: Supine in bed. Telemetry monitoring in place. Reeves catheter in place. Mental Status: Alert and oriented as to person, place, time, and purpose. Able to pay attention, focus, and respond appropriately. Pain: As above Vital Signs: BP softened to the 87/55 mmHg with standing and sidestepping ROM: Right Upper Extremity: Shoulder Flexion WFL. Shoulder abduction WFL. Elbow flexion WFL. Wrist flexion WFL. Functional opening and closing of hand WFL. Left Upper Extremity: Shoulder Flexion WFL. Shoulder abduction WFL. Elbow flexion WFL. Wrist flexion WFL. Functional opening and closing of hand WFL. Right Lower Extremity: Hip flexion WFL. Hip abduction WFL. Knee flexion WFL. Ankle dorsiflexion WFL. Ankle plantarflexion WFL. Left Lower Extremity: Hip flexion WFL but with pain with movement. Hip abduction WFL but with pain with movement. Knee flexion WFL. Ankle dorsiflexion WFL. Ankle plantarflexion WFL. Strength: Right Upper Extremity: Shoulder flexors 3+/5. Shoulder abductors 3+/5. Elbow flexors 4-/5. Elbow extensors 4-/5. Clamp Forklift Operator strong. Left Upper Extremity: Shoulder flexors 3+/5. Shoulder abductors 3+/5. Elbow flexors 4-/5. Elbow extensors 4-/5. Clamp Forklift Operator strong. Right Lower Extremity: Hip flexors 3+/5. Hip abductors 3+/5. Knee flexors 4-/5. Knee extensors 3/5. Ankle dorsiflexors 3/5. Ankle plantarflexors 4-/5. Left Lower Extremity: Hip flexors 3+/5. Hip abductors 3+/5. Knee flexors 4-/5. Knee extensors 3/5. Ankle dorsiflexors 3/5. Ankle plantarflexors 4-/5. Bed Mobility/Transfers: Moderate assist given for movement sequence and use of B UE to minimize pain in L hip and reduce fall risk Supine to sit minimal assist Sit to supine minimal assist Sit to stand minimal assist with FWW Stand to sit minimal assist with FWW Scooting up in bed moderate assist of PT and Nurse Kathy Gait: Deferred walking outside room due to fatigue, BP softening, and pain level in the L hip with movement and weight bearing. Was able to sidestep 4 times to the head of bed to allow for better placement in bed in supine. Very fatigued and requested to rest. Balance: Static Sitting: Normal Dynamic Sitting: Normal Static Standing: Fair Dynamic Standing: Fair Special Tests: Mobility Limitations Standardized Measure [facility] AM-PAC 6 clicks Basic Mobility Inpatient Short Form: Raw Score: 13 CMS Score: 65% deficit Informed Consent/Education: Patient was instructed in purpose of PT consult and plan of care. Agreeable to proceed with established PT POC to achieve personal goals. Assessment: Patient will need gradual mobility progression until final diagnoses related to CT scan of pelvis and abdomen is explained to patient. PT to focus on light bed level or seated exercises to tolerance and walking short distances as patient hopes to go home when medically cleared. Patient presents with clinical signs and symptoms consistent with current/admitting diagnoses that have resulted to mobility limitations, gait instability, generalized weakness, and overall ADL decline as demonstrated by the following impairment level findings: 1. Decreased strength to b UE/LE major muscle groups 2. Impaired sitting/standing balance near 3. Impaired activity tolerance Impairments are contributing to the following functional limitations: 1. Decline in bed mobility skills 2. Decline in transfer skills 3. Difficulty with ambulation without assistive device and physical assistance 4. Increased completion time for mobility ADL performance 5. Increased risk for falls 6. Difficulty with managing steps alone safely Patient is assessed as a [id number] moderate complexity based on the following: History: 77-year-old male with past medical history as indicated above Examination: Demonstrable impairment in strength, balance, and mobility level with underlying impairments and functional limitations as exhibited above as well as deficit score of 65% utilizing the [facility] Mobility Inpatient Short Form Presentation: Evolving Decision Makin moderate complexity Goals: Goals X1 week 1. Supine-Sit independent 2. Sit-Supine independent 3. Sit-Stand independent 4. Stand-Sit independent with FWW 5. Bed-Chair independent with FWW 6. Chair-Bed independent with FWW 7. Independent gait on level surface with use of FWW for at least 50 feet without report of pain nor dyspnea 8. Independent stair negotiation while holding onto [] rails for at least [] steps without report of pain nor dyspnea 9. Independent with home exercise program 10. Good static and dynamic standing balance/tolerance Plan of Care/Treatment Plan: 1-2x/day, 7 days/week x 1 week. Plan of care has been reviewed with the TECHNICAL SUPPORT CONSULTANT providing the service under Physical Therapy direction. Initiate Physical Therapy intervention for pain management as needed, strengthening, bed mobility, transfers, gait, stairs, balance training, and use of assistive device. PT to focus on light bed level or seated exercises to tolerance and walking short distances as patient hopes to go home when medically cleared. DISCHARGE RECOMMENDATIONS: [] Home with no services [] [X] Home with services. Patient will benefit from home health PT services in order to progress mobility level using least restrictive assistive ambulatory device, assess home safety, identify additional equipment needs, and establish a functional maintenance program that will increase ability of patient to remain at home. [] Home with outpatient PT [] [] SNF for continued rehabilitation [] [] Intermediate Care [] [] SNF versus LTC based on ability to participate and progress [] TREATMENT CODE/TIME: 68151 x 20 minutes for 1 unit, 22416 x 15 minutes for 1 unit beginning at 10:45 AM. Thank you for the opportunity to participate in the care of this patient. Sofy García PT, DPT, CLT [facility] [place], [place]
--- NOTE | 2023-08-24 11:21 | PHA.REVIEW2 ---
Pharmacy Admission Review Admission Clinical Review Admission Pharmacy Review: (Updated 08/24/23 @ 08:28 by Adolfo Mckenzie MD) Gram-negative bacteremia (Acute) Left hip pain (Acute) Discharge planning issues (Acute) DVT prophylaxis (Acute) Alcoholism (Acute) Complicated UTI (urinary tract infection) (Acute) Diarrhea of presumed infectious origin (Acute) Sepsis (Acute) Alcohol withdrawal (Acute) Penicillins Adverse Reaction (Unknown, Unverified 07/17/19 06:25) Hives Resuscitation Status DNR/DNI Height 5 ft 10 in Weight 65.7 kg Pharmacy Admission Review Renal Dosing Renal Dosing: BUN 10 mg/dL (7-18) 08/24/23 05:39 Creatinine 0.9 mg/dL (0.70-1.30) 08/24/23 05:39 Medications needing adjustments: Reviewed (CrCl 59.3 mL/min) Anticoagulation Anticoagulation: Hgb 10.3 g/dL (13.5-17.5) L 08/24/23 05:39 Hct 30.5 % (40.0-50.0) L 08/24/23 05:39 Plt Count 311 10^3/uL (130-400) 08/24/23 05:39 Creatinine 0.9 mg/dL (0.70-1.30) 08/24/23 05:39 DVT Prophylaxis: Reviewed Medications: Enoxaparin (40mg q24h, Hgb decreased today to 10.3 from 11.9. Continue to monitor) Opiate Usage Evaluate Pain Scale/Pains Meds: Reviewed (PRN morphine and oxycodone) Scheduled Bowel Reg ordered if on Opiates?: No (PRN docusate and Miralax) Relevant Labs Relevant Labs: Sodium 135 mmol/L (136-145) L 08/24/23 05:39 Potassium 3.3 mmol/L (3.5-5.1) L 08/24/23 05:39 Chloride 102 mmol/L (98-107) 08/24/23 05:39 Magnesium 1.6 mg/dL (1.8-2.4) L 08/24/23 05:39 Electrolytes, C-Reactive P, ESR: Reviewed (Order for potassium TID started today. Magnesium low, consider repleting.) Cardiac Review Cardiac Review: Troponin I < 50 ng/L (<or=60) 08/23/23 16:30 BP, HR, EF%: Reviewed (BP 92/64, HR WNL) QTc Review QTc: Reviewed (439 08/23/23) IV to PO Switch IV Medications: Reviewed Home Meds Home Med List reviewed: Reviewed Current Meds Current Medication Order Review: Reviewed Comments: Per morning meeting, patient no longer on Levophed drip and will be transferred to [facility]. Levophed order still active, discontinue once patient is sent to [place]. Pharmacy Antibiotic Review Relevant Labs: Relevant Labs 08/23/23 10:56 Procalcitonin 6.0 Pharmacy Antibiotic Activity: C/S review and D/C antibiotic Comments: Levofloxacin was discontinued today, still on meropenem. Urine/blood cultures pending, stool culture positive for lactoferrin. WBC trending down (16.44 from 19.53).
[2023-08-24 12:23] LABS: Campylobacter PCR Negative (Negative); Salmonella PCR Negative (Negative); Shiga Toxin PCR Negative (Negative); Shigella/Enteroinvasive Ecoli Negative (Negative)
[2023-08-24] MEDS: Potassium Chloride 10 MEQ CAPCR 20 MEQ PO ×2 (13:14→20:32)
[2023-08-24] MEDS: Enoxaparin 40 MG/0.4 ML SYR SC (15:53)
[2023-08-24] MEDS: MORPHine 2 MG/ML SYR IVP ×2 (15:54→21:30)
[2023-08-24] MEDS: Normal Saline - Diluent 50 ML VIAL IJ (16:31)
[2023-08-24] MEDS: Omnipaque 350 MG/ML 100 ML BTL 70 ML IJ (16:32)
--- NOTE | 2023-08-24 16:35 | DI.CT_ITS ---
Exam(s) CT CHEST W EXAM: CT CHEST W CLINICAL HISTORY: pelvic mass, r/o lung cancer TECHNIQUE: Imaging Protocol: Axial computed tomography images with coronal and sagittal reformatted images were created and reviewed CONTRAST MATERIAL: Intravenous: Omnipaque 350 Contrast volume:75 ml. COMPARISON: CR ABD FLAT UPRIGHT PA CHEST from 07/15/2012 CR XR PORTABLE CHEST AP from 08/23/2023 CR XR HIP LT COMPLETE AP PELVIS from 08/24/[address] ABDOMEN PELVIS WO from 08/24/2023 FINDINGS: Pulmonary parenchyma: Dependent changes at the lung bases. No consolidation. No dominant measurable mass. Tracheobronchial tree: No bronchiectasis or mucous plugging. Mediastinum and Cassie: No dominant adenopathy or fluid collection. Pleura: Trace bilateral pleural effusions. No pneumothorax. Heart: The heart is not dilated. Mild coronary artery calcifications are seen. Aorta: Thoracic aorta non-dilated. Moderate atherosclerotic changes. Upper abdomen: Please see abdomen pelvic CT performed earlier the same day Bones: Degenerative changes in the spine. Soft tissues: Unremarkable. IMPRESSION: No evidence of a of primary lung mass or metastatic disease. Trace bilateral pleural effusions. RADIATION DOSE DELIVERED: Total DLP DATA REPOSITORY: All CT scans at this facility are submitted to the National Radiology Data Registry (NRDR) Dose Index Registry (DIR) with the [employer] (ACR). RADIATION OPTIMIZATION: All CT scans at this facility use at least one of these dose optimization te chniques: automated exposure control; mA and/or kV adjustment per patient size (includes targeted exa ms where dose is matched to clinical indication); or iterative reconstruction.
--- NOTE | 2023-08-24 16:36 | CHAPLAIN ---
I had a brief visit with Harrison. His was not with him, but has been visiting today. His daughter, Yamileth, is an OR nurse here. Harrison had some tests and scans done this morning and is waiting for the results. According to Care Management notes he's had hip pain for several months now. I explained my role and offered support. I will continue to visit.
[2023-08-24 18:29] LABS: PSA, Screening 6.3 ng/mL (<=6.5)
[2023-08-24] MEDS: Latanoprost 0.005% 2.5 ML BTL OU (20:31)
[2023-08-25 02:27] VITALS: BP 83/62; PULSE 77; PULSE 79; RESP 14; TEMP 36.8; O2SAT 98
[2023-08-25 06:04] LABS: Abs Immature Grans 0.04 10^3/uL (0.0-0.06); Absolute Basophil Count 0.04 10^3/uL (0.0-0.2); Absolute Eosinophil Count 0.28 10^3/uL (0.0-0.7); Absolute Lymphocyte Count 1.87 10^3/uL (1.2-3.4); Absolute Monocyte Count 0.74 10^3/uL (0.1-0.8); Absolute Neutrophil Count 6.68 10^3/uL (1.2-6.7); Basophils % 0.4; Eosinophils % 2.9; HCT 29.9 % (40.0-50.0); HGB 10.1 g/dL (13.5-17.5); Immature Grans % 0.4; Lymphocytes % 19.4; MCH 32.2 pg (27.0-33.0); MCHC 33.8 % (32.0-36.0); MCV 95 fL (80-95); MPV 9.4 fL (8.0-11.0); Monocytes % 7.7; Neutrophils % 69.2; Platelet Count 375 10^3/uL (130-400); RBC 3.14 10^6/uL (4.36-5.78); RDW 12.3 % (11.8-14.1); RDW-SD 42.8 fL; WBC 9.65 10^3/uL (4.4-10.8)
[2023-08-25 06:22] LABS: ALT 15 U/L (16-63); AST 21 U/L (15-37); Albumin 1.7 g/dL (3.4-5.0); Alkaline Phosphatase 82 U/L (46-116); Anion Gap 4.4 mmol/L (3-11); BUN 7 mg/dL (7-18); Bilirubin, Total 0.4 mg/dL (0.2-1.0); CO2 28.6 mmol/L (21.0-32.0); CREATININE 0.8 mg/dL (0.70-1.30); Calcium 8.4 mg/dL (8.5-10.1); Chloride 99 mmol/L (98-107); Estimated GFR 92.29 (mL/min/1.73m2); Glucose 110 mg/dL (74-106); Potassium 4.8 mmol/L (3.5-5.1); Sodium 132 mmol/L (136-145); Total Protein 5.3 g/dL (6.4-8.2)
[2023-08-25 08:01] VITALS: BP 105/72; PULSE 87; PULSE 91; RESP 16; TEMP 37.4
--- NOTE | 2023-08-25 08:24 | PDOC.CMPRO ---
Date of service: 08/25/23 Time of Service: 08:24 Care Management Progress Note Progress Note Text Progress Note Text: S/O:Harrison was sitting up in bed when CM met with him. He informed CM about the CT scan report and the fact that he has a mass with possible spread to other areas. He stated that he believes that he may need mcc IV antibiotics when he goes home because of the bacteria in his blood but is not sure. Harrison shared that he knows that the mass will need to be removed and that his pain will likely not improve before that happens. Pain seems to be his most challenging issue right now. He is uncomfortable just lying in bed and the pain gets worse with attempts to move or get out of bed. Unfortunately, Harrison became hypotensive when morphine was administered which has made pain control more challenging. He has a new order for IV Ketorolac which will hopefully be effective without resulting in further hypotension. A: Harrison is a 77 year old man admitted on 08/23/23 with sepsis and pneumonia P:Anticipate Harrison will be discharged home, possibly with new home health, services when medically cleared. He will follow up with his community providers and plan of care and transport with family. He will likely require a biopsy and outpatient workup of the CT findings. CM will follow and continue to assess for discharge needs.
[2023-08-25] MEDS: Psyllium PKT 1 EACH PO ×2 (08:49→19:56)
[2023-08-25] MEDS: Normal Saline Flush 10 ML SYR IVP ×5 (08:50→19:57)
[2023-08-25] MEDS: Cholecalciferol (Vitamin D3) 400 UNIT TAB PO (08:51)
[2023-08-25] MEDS: Pantoprazole 40 MG TABCR PO (08:51)
[2023-08-25] MEDS: Potassium Chloride 10 MEQ CAPCR 20 MEQ PO (08:53)
[2023-08-25] MEDS: Cyanocobalamin 500 MCG TAB 1000 MCG PO (08:53)
[2023-08-25] MEDS: Thiamine 100 MG TAB PO (08:53)
[2023-08-25] MEDS: Folic Acid 1 MG TAB PO (08:54)
--- NOTE | 2023-08-25 09:24 | PGE_ITS ---
Date of Service Date of service: 08/25/23 Time of Service: 09:24 Assessment and Plan Assessment and plan (1) Sepsis: Status: Acute Assessment and plan: Secondary to gram-negative epi bacteremia. Currently stabilized not requiring any vasopressors. Continue meropenem and will de-escalate antibiotics once we identify the organism and get a sensitivity. Qualifiers: Sepsis type: sepsis due to unspecified organism Sepsis acute organ dysfunction status: without acute organ dysfunction Qualified Code(s): A41.9 - Sepsis, unspecified organism (2) Gram-negative bacteremia: Status: Acute Assessment and plan: As above. Repeat blood cultures today to ensure that he is clearing his bacteremia. (3) Diarrhea of presumed infectious origin: Status: Acute Assessment and plan: Stool bacterial antigens pending. Diarrhea improved. (4) Complicated UTI (urinary tract infection): Status: Acute Assessment and plan: No evidence of obstruction of his upper urinary tract. Kidneys appear to be normal in size no hydronephrosis no stones. Bacteremia with secondary to urinary source. I think his dysuria and urinary incontinence was brought on by the neoplasm causing compression of his bladder. (5) Left hip pain: Status: Acute Assessment and plan: Secondary to large infiltrative mass in the sacrum extending through the sciatic notch with erosion of the adjacent bone in the left pelvis. Continue oxycodone discontinue IV morphine. (6) Alcoholism: Status: Acute Assessment and plan: No evidence of acute alcohol withdrawal. CIWA scale discontinued. Can remove alcohol withdrawal precautions. (7) DVT prophylaxis: Status: Acute Assessment and plan: Enoxaparin 40 mg subcutaneously daily (8) Discharge planning issues: Status: Acute Assessment and plan: Consult with physical therapy to work with the patient. Once we have a plan for evaluation of his mass and his bacteremia has cleared he can be discharged home. He remains DNR/DNI per his request. Subjective Subjective Interval history since last seen: Patient states he feels better today. He slept well. Appetite is adequate. No nausea or vomiting or abdominal pain. Hip pain seems to be well-controlled. L ast night he had some brief hypotension associated with morphine. Will going to discontinue his morphine and try to treat his hip pain with oxycodone. He completed his imaging studies yesterday including CT scan of his abdomen pelvis and chest. He has an infiltrative mass in his left pelvis that is causing displacement of his rectum and bladder. He also has adrenal metastasis. CT scan of his chest did not show any neoplasms in his chest. I have asked his images to be sent to [facility] by our diagnostic imaging department. I will consult with [place]ology [place] [facility] [place] to determine best approach for obtaining biopsy. This may require interventional radiology to biopsy his pelvis. He remains afebrile and his leukocytosis is resolving. Repeat blood cultures been ordered. He remains on meropenem for gram-negative epi bacteremia. Exam Narrative Exam Narrative: Bo is sitting up in bed he is alert oriented to person place time circumstance no acute distress. Lungs are clear to auscultation Heart regular rate and rhythm without murmur rub or gallop. Review of telemetry shows he is in sinus rhythm. Abdomen soft nontender nondistended normal bowel sounds. Lower extremities without peripheral cyanosis or edema. Objective Last Vital Signs Temp 36.8 C 08/25/23 02:27 Pulse 79 08/25/23 02:27 Resp 14 08/25/23 02:27 BP 83/62 L 08/25/23 02:27 Pulse Ox 98 08/25/23 02:27 Laboratory Results - last 24 hr 08/23/23 08/24/23 08/24/23 13:15 05:39 09:52 WBC RBC Hgb Hct MCV MCH MCHC RDW Plt Count MPV Immature Gran % Neutrophils % Lymphocytes % Monocytes % Eosinophils % Basophils % Nucleated RBC % Absolute Neutrophils Absolute Lymphocytes Absolute Monocytes Absolute Eosinophils Absolute Basophils Sodium Potassium Chloride Carbon Dioxide Anion Gap BUN Creatinine Est GFR (CKD-EPI 2020) Glucose Calcium Total Bilirubin AST ALT Alkaline Phosphatase Total Protein Albumin PSA Screen 6.3 Stool Campylobacter PCR Negative Stool Salmonella PCR Negative Stool Shigella PCR Negative Shiga Toxin (PCR) Negative Add-On Test Request COMPLETED 08/25/23 05:50 WBC 9.65 RBC 3.14 L Hgb 10.1 L Hct 29.9 L MCV 95 MCH 32.2 MCHC 33.8 RDW 12.3 Plt Count 375 MPV 9.4 Immature Gran % 0.4 Neutrophils % 69.2 Lymphocytes % 19.4 Monocytes % 7.7 Eosinophils % 2.9 Basophils % 0.4 Nucleated RBC % 0.0 Absolute Neutrophils 6.68 Absolute Lymphocytes 1.87 Absolute Monocytes 0.74 Absolute Eosinophils 0.28 Absolute Basophils 0.04 Sodium 132 L Potassium 4.8 D Chloride 99 Carbon Dioxide 28.6 Anion Gap 4.4 BUN 7 Creatinine 0.8 Est GFR (CKD-EPI 2020) 92.29 Glucose 110 H Calcium 8.4 L Total Bilirubin 0.4 AST 21 ALT 15 L Alkaline Phosphatase 82 Total Protein 5.3 L Albumin 1.7 L PSA Screen Stool Campylobacter PCR Stool Salmonella PCR Stool Shigella PCR Shiga Toxin (PCR) Add-On Test Request PAWSS Have you Been Recently Intoxicated or Drunk Within the Last 30 days?: No Have you Ever Experienced Previous Episodes of Alcohol Withdrawal?: No Have you ever Experienced Withdrawal Seizures?: No Have you ever Experienced Delirium Tremens(DT)s?: No Have you ever undergone Alcohol Rehabilitation Treatment (i.e, inpt ot outpatient treatment programs)?: No Have you ever Experienced Blackouts?: No Have you ever Combined Alcohol with other Downers within the last 90 days?: No Have you ever Combined Alcohol with any other Substance of Abuse during the last 90 days?: No Positive Blood Alcohol level on Presentation? [PCS.BAL]: No Evidence of Increased Autonomic Activity (i.e. HR>120, tremor, sweating, agita tion, nausea)?: No Result: 0 Time Spent with Patient Time Spent with Patient: 25-34 minutes Time was spent: preparing to see the patient(eg.review tests), ordering medications,tests, procedures, referring, communicating with other health critical care rn, indepentently interpreting results, counseling the patient and care coordination
[2023-08-25] MEDS: oxyCODONE 5 mg/Acetaminophen 325 mg TAB PO (10:39)
[2023-08-25 11:18] LABS: Campylobacter PCR Negative (Negative); Salmonella PCR Negative (Negative); Shiga Toxin PCR Negative (Negative); Shigella/Enteroinvasive Ecoli Negative (Negative)
[2023-08-25] MEDS: Lactated Ringers 1,000 ML 100 ML IV (11:25)
[2023-08-25 13:28] VITALS: BP 97/59; PULSE 80; RESP 18; TEMP 36.2; O2SAT 100
--- NOTE | 2023-08-25 13:41 | PTTR_ITS ---
Date of service: 08/25/23 Time of Service: 11:30 PT Notes Visit Reasons: Sepsis, Pneumonia Inpatient Physical Therapy Treatment Note [facility] Date: 08/25/23 PRECAUTIONS: Fall, standard, activity as tolerated. SUBJECTIVE: Patient reports that nothing is going to get better until [he gets] down to [facility]. This clinician explains that the purpose of therapy can also include preserving strength, after which both patient and report being agreeable. Patient also states that he has pain all the time and is unwilling to take even a couple of steps due to the pain. OBJECTIVE: Patient is supine in bed, agreeable to therapy.? PAIN: Yes, left lower abdomen, pelvis, and into LLE. VITALS: monitored by nursing staff. ? ? BED MOBILITY/TRANSFERS? Rolling L/R: modified independent with bilateral side rails Supine-sit: modified independent with elevated HOB and bilateral side rails? Sit-supine: min assist to raise LLE over EOB, min assist to center shoulders. ? Sit-stand: CGA? Stand-sit: CGA? Bed-Chair: not assessed ? Chair-bed: Not assessed ? Therapeutic Exercises ([id number]): Direct one-on-one instruction in therapeutic exercises to develop strength, endurance, range of motion and flexibility. ? Exercises: * 10 toe scrunches * 10 ankle pumps * 10 short range heel slides RLE only * seated 10 heel toe raises * seated 10 LAQ * sit to stand x3 * standing tolerance x 1 minute Provided skilled instruction in proper exercise performance Provided skilled manual cues to facilitate proper muscle recruitment and/or form. ASSESSMENT:? Patient tolerates therapy well, is resting comfortably at end of treatment session. PLAN: Bring Theraband tomorrow, incorporate UE strengthening as well as core and RLE strengthening. Per DPT Sofy García, patient to be seen only once per day due to pain from the mass in his pelvis. Premedicate before all therapy treatments. TREATMENT CODE/TIME: 17 minutes beginning at 11:30
[2023-08-25] MEDS: Ketorolac 30 MG/ML VIAL IVP (15:09)
[2023-08-25] MEDS: Enoxaparin 40 MG/0.4 ML SYR SC (15:10)
[2023-08-25 15:22] VITALS: BP 91/54; PULSE 75; RESP 16; TEMP 35.9; O2SAT 100
[2023-08-25] MEDS: Midodrine 2.5 MG TAB 5 MG PO ×2 (17:09→22:08)
[2023-08-25] MEDS: Hydrocortisone SOD SUC. 100 MG VIAL IVP (18:13)
[2023-08-25 19:23] LABS: CA 125 20 U/mL (<30)
[2023-08-25] MEDS: Latanoprost 0.005% 2.5 ML BTL OU (19:55)
[2023-08-25 22:09] VITALS: BP 93/55; PULSE 71; RESP 16; TEMP 35.8; O2SAT 97
[2023-08-26] MEDS: Hydrocortisone SOD SUC. 100 MG VIAL 50 MG IVP ×3 (02:11→17:30)
[2023-08-26] MEDS: Normal Saline Flush 10 ML SYR IVP ×4 (02:12→20:51)
[2023-08-26 02:15] VITALS: BP 104/64; PULSE 71; RESP 16; TEMP 35.8; O2SAT 99
[2023-08-26 07:15] VITALS: BP 92/59; PULSE 79; RESP 16; TEMP 36.3; O2SAT 98
[2023-08-26] MEDS: Thiamine 100 MG TAB PO (08:00)
[2023-08-26] MEDS: Cyanocobalamin 500 MCG TAB 1000 MCG PO (08:00)
[2023-08-26] MEDS: Cholecalciferol (Vitamin D3) 400 UNIT TAB PO (08:00)
[2023-08-26] MEDS: Psyllium PKT 1 EACH PO ×2 (08:00→20:49)
[2023-08-26] MEDS: Midodrine 2.5 MG TAB 5 MG PO ×3 (08:00→20:52)
[2023-08-26] MEDS: Folic Acid 1 MG TAB PO (08:00)
[2023-08-26] MEDS: Pantoprazole 40 MG TABCR PO (08:00)
[2023-08-26 08:57] LABS: Anion Gap 6.3 mmol/L (3-11); BUN 11 mg/dL (7-18); CO2 27.7 mmol/L (21.0-32.0); CREATININE 0.8 mg/dL (0.70-1.30); Calcium 8.8 mg/dL (8.5-10.1); Chloride 98 mmol/L (98-107); Estimated GFR 92.29 (mL/min/1.73m2); Glucose 196 mg/dL (74-106); Potassium 4.6 mmol/L (3.5-5.1); Sodium 132 mmol/L (136-145)
[2023-08-26 09:53] LABS: CEA 2160.3 ng/mL (See Note)
[2023-08-26] MEDS: Ketorolac 15 MG/ML VIAL IVP (09:55)
[2023-08-26] MEDS: Acetaminophen 325 MG TAB 650 MG PO (09:57)
[2023-08-26 09:58] LABS: HCT 33.1 % (40.0-50.0); MCH 31.4 pg (27.0-33.0); MCHC 33.2 % (32.0-36.0); MCV 95 fL (80-95); RDW 11.9 % (11.8-14.1); RDW-SD 41.6 fL; WBC 5.46 10^3/uL (4.4-10.8)
[2023-08-26 09:59] LABS: Abs Immature Grans 0.02 10^3/uL (0.0-0.06); Absolute Basophil Count 0.01 10^3/uL (0.0-0.2); Absolute Lymphocyte Count 0.56 10^3/uL (1.2-3.4); Absolute Monocyte Count 0.14 10^3/uL (0.1-0.8); Absolute Neutrophil Count 4.73 10^3/uL (1.2-6.7); Basophils % 0.2; Immature Grans % 0.4; Lymphocytes % 10.3; MPV 9.7 fL (8.0-11.0); Monocytes % 2.6; Neutrophils % 86.5; Platelet Count 476 10^3/uL (130-400)
--- NOTE | 2023-08-26 10:42 | CMPROGNOTE_ITS ---
Date of service: 08/26/23 Time of Service: 10:42 Care Management Progress Note Progress Note Text Progress Note Text: S/O:Harrison was sitting up in bed when CM met with him. He informed CM that he is finally feeling a little better today. He has been able to move some in his bed without extreme pain and was able to work with Pt a bit. He shared that the provider is [place] [facility] [place] if [place] can be scheduled for a down and back IR procedure to biopsy the mass found on Ct scan. He explained that until more is known, they will not be able to determine his treatment course. He has been told that if he is able to ambulate to the bathroom and back, that he will likely be able to discharge home. If not, he may need short term rehab prior to returning home. A: Harrison is a 77 year old man admitted on 08/23/23 with sepsis and pneumonia P:Anticipate Harrison will be discharged home, possibly with new home health, services when medically cleared. He will follow up with his community providers and plan of care and transport with family. He will likely require a biopsy and outpatient workup of the CT findings. CM will follow and continue to assess for discharge needs.
--- NOTE | 2023-08-26 10:47 | PGE_ITS ---
Date of Service Date of service: 08/26/23 Time of Service: 10:47 Assessment and Plan Assessment and plan (1) Sepsis: Status: Acute Assessment and plan: Secondary to E. coli. Organism is resistant to Levaquin and Cipro. Surprisingly it is sensitive to ampicillin as well as cephalosporins. Will switch him to high-dose Rocephin 2 g IV daily. Will arrange for placement of m idline so he can continue antibiotic treatment as an outpatient. 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 Blood pressure is improved since I started him on his hydrocortisone. Upon discharge she should be sent home on cortisone replacement. Random cortisol level from last night is pending but I suspect he probably has adrenal insufficiency. Qualifiers: Sepsis type: sepsis due to unspecified organism Sepsis acute organ dysfunction status: without acute organ dysfunction Qualified Code(s): A41.9 - Sepsis, unspecified organism (2) Diarrhea of presumed infectious origin: Status: Resolved Assessment and plan: Stool bacterial antigens pending. Diarrhea has resolved. (3) Complicated UTI (urinary tract infection): Status: Acute Assessment and plan: No evidence of obstruction of his upper urinary tract. Kidneys appear to be normal in size no hydronephrosis no stones. Bacteremia with secondary to urinary source. I think his dysuria and urinary incontinence was brought on by the neoplasm causing compression of his bladder. 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 Continue oxycodone discontinue IV morphine. Will put him on scheduled rather than prn oxycodone. Attempt to work w/ P.T. today. (5) Alcoholism: Status: Acute Assessment and plan: No evidence of acute alcohol withdrawal. CIWA scale discontinued. Can remove alcohol withdrawal precautions. (6) DVT prophylaxis: Status: Acute Assessment and plan: Enoxaparin 40 mg subcutaneously daily (7) Discharge planning issues: Status: Acute Assessment and plan: Consult with physical therapy to work with the patient. Once we have a plan for evaluation of his mass and his bacteremia has cleared he can be discharged home. He remains DNR/DNI per his request. (8) E coli bacteremia: Status: Acute Subjective Subjective Interval history since last seen: No new complaints. He is reluctant to getting out of bed out of fear of pain. I told him that he needs to start working w/ P.T. as I can not send him home if he is not ambulating w/ walker to the bathroom and back. I told him that once his bacteremia has cleared, he needs to go home or go to a SNF if he is unable to ambulate. I have tried to arrrange a down and back IR biopsy of his mass but [facility] [place] [place] schedule is full this work so it will have to be done as outpatient next week after he is discharged. He denies any diarrhea, abdominal pain, nausea or vomiting. No fevers overnight. Exam Narrative Exam Narrative: Patient is alert and oriented x 3 no acute distress Lungs are clear to auscultation Heart is regular rate and rhythm Abdomen soft nondistended normal bowel sounds Left hip without edema no point tenderness Lower extremities without peripheral cyanosis or edema Objective Last Vital Signs Temp 36.3 C L 08/26/23 07:15 Pulse 79 08/26/23 07:15 Resp 16 08/26/23 07:15 BP 92/59 L 08/26/23 07:15 Pulse Ox 98 08/26/23 07:15 Laboratory Results - last 24 hr 08/23/23 08/26/23 17:00 06:05 WBC 5.46 RBC 3.50 L Hgb 11.0 L Hct 33.1 L MCV 95 MCH 31.4 MCHC 33.2 RDW 11.9 Plt Count 476 H MPV 9.7 Immature Gran % 0.4 Neutrophils % 86.5 Lymphocytes % 10.3 Monocytes % 2.6 Eosinophils % 0.0 Basophils % 0.2 Nucleated RBC % 0.0 Absolute Neutrophils 4.73 Absolute Lymphocytes 0.56 L Absolute Monocytes 0.14 Absolute Eosinophils 0.00 Absolute Basophils 0.01 Sodium 132 L Potassium 4.6 Chloride 98 Carbon Dioxide 27.7 Anion Gap 6.3 BUN 11 Creatinine 0.8 Est GFR (CKD-EPI 2020) 92.29 Glucose 196 H Calcium 8.8 Procalcitonin 1.0 Stool Campylobacter PCR Negative Stool Salmonella PCR Negative Stool Shigella PCR Negative Shiga Toxin (PCR) Negative PAWSS Have you Been Recently Intoxicated or Drunk Within the Last 30 days?: No Have you Ever Experienced Previous Episodes of Alcohol Withdrawal?: No Have you ever Experienced Withdrawal Seizures?: No Have you ever Experienced Delirium Tremens(DT)s?: No Have you ever undergone Alcohol Rehabilitation Treatment (i.e, inpt ot outpatient treatment programs)?: No Have you ever Experienced Blackouts?: No Have you ever Combined Alcohol with other Downers within the last 90 days?: No Have you ever Combined Alcohol with any other Substance of Abuse during the last 90 days?: No Positive Blood Alcohol level on Presentation? [PCS.BAL]: No Evidence of Increased Autonomic Activity (i.e. HR>120, tremor, sweating, agitation, nausea)?: No Result: 0 Time Spent with Patient Time Spent with Patient: 35-49 minutes Time was spent: preparing to see the patient(eg.review tests), ordering medications,tests, procedures, referring, communicating with other health complex care nurse ([facility] [place] [place] IR), indepentently interpreting results, counseling the patient and care coordination
[2023-08-26 11:21] VITALS: PULSE 78; RESP 17; TEMP 36.5; O2SAT 98
--- NOTE | 2023-08-26 12:00 | PTTR_ITS ---
Date of service: 08/26/23 Time of Service: 11:36 PT Notes Visit Reasons: Sepsis, Pneumonia Inpatient Physical Therapy Treatment Note [facility] Date: 08/26/23 PRECAUTIONS: Fall, standard, activity as tolerated. PREMEDICATE. SUBJECTIVE: Patient reports feeling ok, pain is present but controlled provided he doesn't move LLE. OBJECTIVE: Supine in bed, agreeable to therapy.? PAIN: yes, left leg and hip VITALS: monitored by nursing staff ? BED MOBILITY/TRANSFERS? Rolling L/R: not assessed Supine-sit: not assessed ? Sit-supine: not assessed ? Sit-stand: not assessed ? Stand-sit: not assessed ? Bed-Chair: not assessed ? Chair-bed: not assessed ? Therapeutic Exercises (99700q8): Direct one-on-one instruction in therapeutic exercises to develop strength, endurance, range of motion and flexibility. ? Exercises: * shoulder horizontal abduction vs green theraband * latissimus press vs green theraband * shoulder rows vs blue theraband * self anchored bicep curls vs green theraband * self anchored tricep extensions vs greed theraband * right leg press vs green theraband Verbal and tactile cues provided throughout to ensure safe and correct movement patterns. Provided skilled instruction in proper exercise performance Provided skilled manual cues to facilitate proper muscle recruitment and/or form. ASSESSMENT:? Patient tolerates therapy well, reports that right leg press does not cause any significant increase in left leg pain. PLAN: Continue global strengthening per plan of care until patient is medically cleared for discharge. TREATMENT CODE/TIME: 14 minutes beginning at 11:36
[2023-08-26] MEDS: cefTRIAXone 2 GM/50 ML BAG IVPB (14:49)
[2023-08-26 15:29] VITALS: BP 97/56; PULSE 79; RESP 16; TEMP 36.5; O2SAT 97
[2023-08-26] MEDS: Enoxaparin 40 MG/0.4 ML SYR SC (17:30)
[2023-08-26] MEDS: Latanoprost 0.005% 2.5 ML BTL OU (20:47)
[2023-08-26 23:42] VITALS: BP 104/53; PULSE 76; RESP 18; TEMP 36.3; O2SAT 96
[2023-08-27] MEDS: Normal Saline Flush 10 ML SYR IVP ×5 (01:01→19:55)
[2023-08-27] MEDS: Hydrocortisone SOD SUC. 100 MG VIAL 50 MG IVP ×3 (01:01→17:45)
[2023-08-27 06:22] LABS: Abs Immature Grans 0.14 10^3/uL (0.0-0.06); Absolute Eosinophil Count 0.04 10^3/uL (0.0-0.7); Absolute Lymphocyte Count 1.03 10^3/uL (1.2-3.4); Absolute Neutrophil Count 12.57 10^3/uL (1.2-6.7); Basophils % 0.1; Eosinophils % 0.3; HCT 30.6 % (40.0-50.0); HGB 10.4 g/dL (13.5-17.5); Lymphocytes % 7.2; MCV 94 fL (80-95); Monocytes % 3.5; Neutrophils % 87.9; Platelet Count 436 10^3/uL (130-400); RBC 3.25 10^6/uL (4.36-5.78); RDW 11.9 % (11.8-14.1); RDW-SD 41.5 fL
[2023-08-27 06:32] LABS: Absolute Basophil Count 0.01 10^3/uL (0.0-0.2)
[2023-08-27 06:34] LABS: Anion Gap 8.2 mmol/L (3-11); BUN 13 mg/dL (7-18); CO2 27.8 mmol/L (21.0-32.0); CREATININE 0.8 mg/dL (0.70-1.30); Calcium 8.9 mg/dL (8.5-10.1); Chloride 102 mmol/L (98-107); Estimated GFR 92.29 (mL/min/1.73m2); Glucose 178 mg/dL (74-106); Potassium 3.8 mmol/L (3.5-5.1); Sodium 138 mmol/L (136-145)
[2023-08-27 07:27] VITALS: BP 102/55; PULSE 74; RESP 17; TEMP 36.5; O2SAT 98
[2023-08-27] MEDS: Cholecalciferol (Vitamin D3) 400 UNIT TAB PO (09:09)
[2023-08-27] MEDS: Midodrine 2.5 MG TAB 5 MG PO ×3 (09:09→19:53)
[2023-08-27] MEDS: Cyanocobalamin 500 MCG TAB 1000 MCG PO (09:09)
[2023-08-27] MEDS: Pantoprazole 40 MG TABCR PO (09:10)
[2023-08-27] MEDS: Folic Acid 1 MG TAB PO (09:11)
[2023-08-27] MEDS: Thiamine 100 MG TAB PO (09:14)
--- NOTE | 2023-08-27 10:26 | PDOC.CMPRO ---
Date of service: 08/27/23 Time of Service: 10:26 Care Management Progress Note Progress Note Text Progress Note Text: S/O:Harrison was sitting up in bed when CM met with him. He informed CM that he is feeling really good today. He was able to ambulate with PT from hi bed to the bathroom with minimal assistance and almost no pain. [facility] has indicated that they will be able to biopsy the pelvic mass in IR on Wednesday. Harrison will remain at [facility] until then to continue receiving the IV Solu-Cortef which Harrison feels is responsible for his continued improvement with pain control. A: Harrison is a 77 year old man admitted on 08/23/23 with sepsis and pneumonia P:Anticipate Harrison will be discharged home, possibly with new home health, services when medically cleared. He will follow up with his community providers and plan of care and transport with family. He will likely require a biopsy and outpatient workup of the CT findings. CM will follow and continue to assess for discharge needs.
[2023-08-27 11:30] VITALS: BP 99/64; PULSE 89; RESP 17; TEMP 36.6; O2SAT 96
--- NOTE | 2023-08-27 11:34 | PGE_ITS ---
Date of Service Date of service: 08/27/23 Time of Service: 11:34 Assessment and Plan Assessment and plan (1) Sepsis: Status: Acute Assessment and plan: -Secondary to E. coli. -Has been switched to 2 g Rocephin daily -Will change to p.o. cefpodoxime on 08/28/2023 Qualifiers: Sepsis type: sepsis due to unspecified organism Sepsis acute organ dysfunction status: without acute organ dysfunction Qualified Code(s): A41.9 - Sepsis, unspecified organism (2) Diarrhea of presumed infectious origin: Status: Resolved Assessment and plan: -Stool bacterial antigens pending. Diarrhea has resolved. (3) Complicated UTI (urinary tract infection): Status: Acute Assessment and plan: -No evidence of obstruction of his upper urinary tract. -Kidneys appear to be normal in size no hydronephrosis no stones. -Bacteremia with secondary to urinary source. 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 -Patient has apparent back interventional radiology biopsy at [facility] on 08/30/2023 -Continue oxycodone discontinue IV morphine. -Will put him on scheduled rather than prn oxycodone. -Continue to work with PT (5) Alcoholism: Status: Acute Assessment and plan: No evidence of acute alcohol withdrawal. CIWA scale discontinued. Can remove alcohol withdrawal precautions. (6) DVT prophylaxis: Status: Acute Assessment and plan: Enoxaparin 40 mg subcutaneously daily (7) Discharge planning issues: Status: Acute Assessment and plan: Consult with physical therapy to work with the patient. Once we have a plan for evaluation of his mass and his bacteremia has cleared he can be discharged home. He remains DNR/DNI per his request. Subjective Subjective Interval history since last seen: Patient states that he is feeling significantly better today and that he is able to move around in the bed much easier due to improvement of his hip pain. He understands that his biopsy is scheduled for Wednesday. Exam Narrative Exam Narrative: Well-appearing older gentleman sitting up in the bed in no acute distress, ANO x 4, heart regular rate and rhythm, lungs clear to auscultation bilaterally, abdomen soft, nontender nondistended, decreased range of motion of the left lower extremity at the hip secondary to pain Objective Last Vital Signs Temp 97.9 F 08/27/23 11:30 Pulse 89 08/27/23 11:30 Resp 17 08/27/23 11:30 BP 99/64 L 08/27/23 11:30 Pulse Ox 96 08/27/23 11:30 Laboratory Results - last 24 hr 08/25/23 08/25/23 08/27/23 05:50 18:21 05:46 WBC 14.30 H RBC 3.25 L Hgb 10.4 L Hct 30.6 L MCV 94 MCH 32.0 MCHC 34.0 RDW 11.9 Plt Count 436 H MPV 10.0 Immature Gran % 1.0 Neutrophils % 87.9 Lymphocytes % 7.2 Monocytes % 3.5 Eosinophils % 0.3 Basophils % 0.1 Nucleated RBC % 0.0 Absolute Neutrophils 12.57 H Absolute Lymphocytes 1.03 L Absolute Monocytes 0.50 Absolute Eosinophils 0.04 Absolute Basophils 0.01 Sodium 138 Potassium 3.8 Chloride 102 Carbon Dioxide 27.8 Anion Gap 8.2 BUN 13 Creatinine 0.8 Est GFR (CKD-EPI 2020) 92.29 Glucose 178 H Calcium 8.9 Carcinoembryonic Ag 2160.3 CA 125 Antigen 20 Cortisol >120 PAWSS Have you Been Recently Intoxicated or Drunk Within the Last 30 days?: No Have you Ever Experienced Previous Episodes of Alcohol Withdrawal?: No Have you ever Experienced Withdrawal Seizures?: No Have you ever Experienced Delirium Tremens(DT)s?: No Have you ever undergone Alcohol Rehabilitation Treatment (i.e, inpt ot outpatient treatment programs)?: No Have you ever Experienced Blackouts?: No Have you ever Combined Alcohol with other Downers within the last 90 days?: No Have you ever Combined Alcohol with any other Substance of Abuse during the last 90 days?: No Positive Blood Alcohol level on Presentation? [PCS.BAL]: No Evidence of Increased Autonomic Activity (i.e. HR>120, tremor, sweating, agitation, nausea)?: No Result: 0 Time Spent with Patient Time Spent with Patient: >50 minutes Time was spent: preparing to see the patient(eg.review tests), obtaining and/or reviewing separately [facility] hiistory, ordering medications,tests, procedures, referring, communicating with other health morning caregiver, indepentently interpreting results, counseling the patient and care coordination
--- NOTE | 2023-08-27 13:42 | PT.INTREAT ---
Date of service: 08/27/23 Time of Service: 13:15 PT Notes Visit Reasons: Sepsis, Pneumonia Inpatient Physical Therapy Treatment Note [facility] Date: 08/27/23 PRECAUTIONS: Fall, standard, activity as tolerated. SUBJECTIVE: Patient reports feeling really good today. OBJECTIVE: Supine in bed, agreeable to therapy.? PAIN: None reported initially. Report of pain only upon trying to lift left leg back into bed, cries out and grimaces and then reports that the pain is still nowhere near what it was on Wednesday. VITALS: monitored by nursing staff ? ? BED MOBILITY/TRANSFERS? Rolling L/R: not assessed Supine-sit: modified independent with bilateral side rails ? Sit-supine: min assist to elevate left leg into bed ? Sit-stand: SBA ? Stand-sit: SBA? Bed-Chair: CGA ? Chair-bed: CGA Gait Training ([id number]): Direct one-on-one instruction and skilled instruction in: [x] employing an assistive device [] modified weight-bearing status [x] movement sequencing [x] turning and movement with proper form [x] Provided verbal cues for equipment management and technique [] Provided instruction in gait pattern [] Patient education regarding pacing and breathing techniques to maximize activity tolerance? GAIT? Assistive Device: FWW? Weight bearing: full Assist: CGA, verbal cues ? Distance:? 30 feet ? Deviation: gait largely unremarkable except when backing up, patient experiences LOB x2 both of which he is able to correct independently ? ASSESSMENT:? Patient tolerates therapy well, no increase in pain, no shortness of breath. PLAN: continue global strengthening per plan of care until patient is medically cleared for discharge and obtains safe discharge plan. TREATMENT CODE/TIME: 15 minutes beginning at 13:15
[2023-08-27] MEDS: cefTRIAXone 2 GM/50 ML BAG IVPB (14:00)
[2023-08-27 15:05] VITALS: BP 104/60; PULSE 66; RESP 17; TEMP 36.4; O2SAT 97
[2023-08-27] MEDS: Enoxaparin 40 MG/0.4 ML SYR SC (17:41)
[2023-08-27 18:51] LABS: Calprotectin 608 mcg/g
[2023-08-27] MEDS: Psyllium PKT 1 EACH PO (19:54)
[2023-08-27] MEDS: Latanoprost 0.005% 2.5 ML BTL OU (20:44)
[2023-08-27 23:37] VITALS: BP 100/61; PULSE 67; RESP 17; TEMP 36.6; O2SAT 96
[2023-08-28] MEDS: Hydrocortisone SOD SUC. 100 MG VIAL 50 MG IVP ×3 (01:50→18:27)
[2023-08-28] MEDS: Normal Saline Flush 10 ML SYR IVP ×5 (01:50→19:59)
[2023-08-28 07:24] VITALS: BP 107/68; PULSE 72; RESP 16; TEMP 36.1; O2SAT 97
--- NOTE | 2023-08-28 08:49 | W.PM.PROGNOT ---
Date of Service Date of service: 08/28/23 Time of Service: 08:50 Assessment and Plan Assessment and plan (1) Sepsis: Status: Acute Assessment and plan: -Secondary to E. coli. -Had been switched to 2 g Rocephin daily -Changed to p.o. cefpodoxime on 08/28/2023 Qualifiers: Sepsis type: sepsis due to unspecified organism Sepsis acute organ dysfunction status: without acute organ dysfunction Qualified Code(s): A41.9 - Sepsis, unspecified organism (2) Diarrhea of presumed infectious origin: Status: Resolved Assessment and plan: -Stool bacterial antigens negative -diarrhea has resolved. (3) Complicated UTI (urinary tract infection): Status: Acute Assessment and plan: -No evidence of obstruction of his upper urinary tract. -Kidneys appear to be normal in size no hydronephrosis no stones. -Bacteremia with secondary to urinary source. 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 -Patient has apparent back interventional radiology biopsy at [facility] on 08/30/2023 -Continue oxycodone discontinue IV morphine. -Continue as needed pain regimen and Q8h 50 mg Solu-Cortef -Continue to work with PT (5) Alcoholism: Status: Acute Assessment and plan: No evidence of acute alcohol withdrawal. CIWA scale discontinued. Can remove alcohol withdrawal precautions. (6) DVT prophylaxis: Status: Acute Assessment and plan: Enoxaparin 40 mg subcutaneously daily (7) Discharge planning issues: Status: Acute Assessment and plan: Consult with physical therapy to work with the patient. Once we have a plan for evaluation of his mass and his bacteremia has cleared he can be discharged home. He remains DNR/DNI per his request. Subjective Subjective Interval history since last seen: Patient states that his pain is continuing to improve and he was encouraged by his ability ambulate physical therapy yesterday. He understands and agrees with the plan to remain hospitalized to continue to work on his pain and further back transfer to [facility] on Wednesday for IR biopsy of his left lower pelvis mass Exam Narrative Exam Narrative: Well-appearing older gentleman sitting up in the bed in no acute distress, ANO x 4, heart regular rate and rhythm, lungs clear to auscultation bilaterally, abdomen soft, nontender nondistended, decreased range of motion of the left lower extremity at the hip secondary to pain Objective Last Vital Signs Temp 97.0 F L 08/28/23 07:24 Pulse 72 08/28/23 07:24 Resp 16 08/28/23 07:24 BP 107/68 08/28/23 07:24 Pulse Ox 97 08/28/23 07:24 Laboratory Results - last 24 hr 08/25/23 18:21 Cortisol >120 PAWSS Have you Been Recently Intoxicated or Drunk Within the Last 30 days?: No Have you Ever Experienced Previous Episodes of Alcohol Withdrawal?: No Have you ever Experienced Withdrawal Seizures?: No Have you ever Experienced Delirium Tremens(DT)s?: No Have you ever undergone Alcohol Rehabilitation Treatment (i.e, inpt ot outpatient treatment programs)?: No Have you ever Experienced Blackouts?: No Have you ever Combined Alcohol with other Downers within the last 90 days?: No Have you ever Combined Alcohol with any other Substance of Abuse during the last 90 days?: No Positive Blood Alcohol level on Presentation? [PCS.BAL]: No Evidence of Increased Autonomic Activity (i.e. HR>120, tremor, sweating, agitation, nausea)?: No Result: 0 Time Spent with Patient Time Spent with Patient: >50 minutes Time was spent: preparing to see the patient(eg.review tests), obtaining and/or reviewing separately otained hiistory, referring, communicating with other health childcare provider, indepentently interpreting results, counseling the patient and care coordination
[2023-08-28] MEDS: Psyllium PKT 1 EACH PO ×2 (09:11→19:56)
[2023-08-28] MEDS: Midodrine 2.5 MG TAB 5 MG PO ×3 (09:12→19:57)
[2023-08-28] MEDS: Cefpodoxime 200 MG TAB PO ×2 (09:13→19:57)
[2023-08-28] MEDS: Folic Acid 1 MG TAB PO (09:13)
[2023-08-28] MEDS: Thiamine 100 MG TAB PO (09:13)
[2023-08-28] MEDS: Cholecalciferol (Vitamin D3) 400 UNIT TAB PO (09:13)
[2023-08-28] MEDS: Cyanocobalamin 500 MCG TAB 1000 MCG PO (09:14)
--- NOTE | 2023-08-28 13:41 | PT.INTREAT ---
Date of service: 08/28/23 Time of Service: 10:00 PT Notes Visit Reasons: Sepsis, Pneumonia Inpatient Physical Therapy Treatment Note [facility] Date: 08/28/2023 PRECAUTIONS: Fall, Standard and Activity as Tolerated SUBJECTIVE: Indicated he gets cold easily so does not want to be uncovered for long. Also, stated he prefers to stay in bed when not walking due to it being more comfortable than the chair. OBJECTIVE: ? PAIN: Pain with getting in and out of bed in the anterior hip regions. Advised to ask for assistance if this in painful for him. Therapeutic Activities ([id number]): Direct one-on-one instruction in dynamic activities to improve functional performance. ?? ? BED MOBILITY/TRANSFERS? Rolling L/R: not assessed Supine-sit: SBA? Sit-supine: SBA? Sit-stand: SBA ? Stand-sit: SBA? Bed-Chair: CGA ? Chair-bed: CGA GAIT? Assistive Device: FWW? Weight bearing: full Assist: CGA, verbal cues ? Distance:? 30 feet ? Deviation: gait largely unremarkable While waiting for nursing to come to room to assist with cleaning of feces due to bowel movement in undergarment he was able to perform: Therapeutic Exercises ([id number]) One on one instruction in standing, seated and supine exercises with LE/ UEs Performed ankle pumps in sitting x 10 reps LAQs x 10 reps seated toe raises x 10 reps standing heel raises x 10 reps Supine t-band resisted shoulder abd/adduction x 10 reps Supine t-band resisted shoulder extension 80 degrees to 0 degrees x 10 reps ? ASSESSMENT:? Patient tolerates fair. Assist with lifting LEs up and down with supine to sit and sit to stand is advised, to decrease discomfort with this. PLAN: Continue global strengthening per plan of care until patient is medically cleared for discharge and obtains safe discharge plan. TREATMENT CODE/TIME: ?[id number] and [id number], 10:00 to 10:25 (25 minutes)
[2023-08-28 15:19] VITALS: BP 127/73; PULSE 68; RESP 19; TEMP 36.7; O2SAT 98
[2023-08-28] MEDS: Enoxaparin 40 MG/0.4 ML SYR SC (18:02)
[2023-08-28] MEDS: Latanoprost 0.005% 2.5 ML BTL OU (19:57)
[2023-08-28 23:26] VITALS: BP 108/65; PULSE 60; RESP 19; TEMP 36.3; O2SAT 97
[2023-08-29] MEDS: Hydrocortisone SOD SUC. 100 MG VIAL 50 MG IVP ×3 (02:59→17:50)
[2023-08-29 07:45] VITALS: BP 117/68; PULSE 70; RESP 18; TEMP 36.3; O2SAT 93
[2023-08-29] MEDS: Psyllium PKT 1 EACH PO ×2 (08:05→20:23)
[2023-08-29] MEDS: Thiamine 100 MG TAB PO (08:06)
[2023-08-29] MEDS: Cefpodoxime 200 MG TAB PO ×2 (08:06→20:22)
[2023-08-29] MEDS: Folic Acid 1 MG TAB PO (08:06)
[2023-08-29] MEDS: Midodrine 2.5 MG TAB 5 MG PO ×3 (08:06→20:22)
[2023-08-29] MEDS: Cholecalciferol (Vitamin D3) 400 UNIT TAB PO (08:06)
[2023-08-29] MEDS: Cyanocobalamin 500 MCG TAB 1000 MCG PO (08:06)
[2023-08-29] MEDS: Normal Saline Flush 10 ML SYR IVP ×5 (08:06→20:21)
--- NOTE | 2023-08-29 09:52 | PGE_ITS ---
Date of Service Date of service: 08/29/23 Time of Service: 09:52 Assessment and Plan Assessment and plan (1) Sepsis: Status: Acute Assessment and plan: -Secondary to E. coli. -Had been switched to 2 g Rocephin daily -Changed to p.o. cefpodoxime on 08/28/2023 Qualifiers: Sepsis type: sepsis due to unspecified organism Sepsis acute organ dysfunction status: without acute organ dysfunction Qualified Code(s): A41.9 - Sepsis, unspecified organism (2) Diarrhea of presumed infectious origin: Status: Resolved Assessment and plan: -Stool bacterial antigens negative -diarrhea has resolved. (3) Complicated UTI (urinary tract infection): Status: Acute Assessment and plan: -No evidence of obstruction of his upper urinary tract. -Kidneys appear to be normal in size no hydronephrosis no stones. -Bacteremia with secondary to urinary source. 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 -Patient has apparent back interventional radiology biopsy at [facility] on 08/30/2023 -Has not needed additional as needed opiates which have been discontinued -Continue as needed pain regimen and Q8h 50 mg Solu-Cortef -Continue to work with PT (5) Alcoholism: Status: Acute Assessment and plan: No evidence of acute alcohol withdrawal. CIWA scale discontinued. Can remove alcohol withdrawal precautions. (6) DVT prophylaxis: Status: Acute Assessment and plan: Enoxaparin 40 mg subcutaneously daily (7) Discharge planning issues: Status: Acute Assessment and plan: Consult with physical therapy to work with the patient. Once we have a plan for evaluation of his mass and his bacteremia has cleared he can be discharged home. He remains DNR/DNI per his request. Subjective Subjective Interval history since last seen: Patient states that he is feeling well today and that the pain in his hip continues to improve. He has multiple questions regarding his prognosis of his pelvic mass, but understands for step of the process is to get his biopsy at [facility] tomorrow and that he will follow-up with hematology oncology once he i s discharged from the hospital. Exam Narrative Exam Narrative: Well-appearing older gentleman sitting up in the bed in no acute distress, ANO x 4, heart regular rate and rhythm, lungs clear to auscultation bilaterally, abdomen soft, nontender nondistended, decreased range of motion of the left low er extremity at the hip secondary to pain Objective Last Vital Signs Temp 97.3 F L 08/29/23 07:45 Pulse 70 08/29/23 07:45 Resp 18 08/29/23 07:45 BP 117/68 08/29/23 07:45 Pulse Ox 93 08/29/23 07:45 PAWSS Have you Been Recently Intoxicated or Drunk Within the Last 30 days?: No Have you Ever Experienced Previous Episodes of Alcohol Withdrawal?: No Have you ever Experienced Withdrawal Seizures?: No Have you ever Experienced Delirium Tremens(DT)s?: No Have you ever undergone Alcohol Rehabilitation Treatment (i.e, inpt ot outpatient treatment programs)?: No Have you ever Experienced Blackouts?: No Have you ever Combined Alcohol with other Downers within the last 90 days?: No Have you ever Combined Alcohol with any other Substance of Abuse during the last 90 days?: No Positive Blood Alcohol level on Presentation? [PCS.BAL]: No Evidence of Increased Autonomic Activity (i.e. HR>120, tremor, sweating, agitation, nausea)?: No Result: 0 Time Spent with Patient Time Spent with Patient: >50 minutes Time was spent: preparing to see the patient(eg.review tests), obtaining and/or reviewing separately otained hiistory, ordering medications,tests, procedures, referring, communicating with other health respiratory care practitioner, indepentently interpreting results, counseling the patient and care coordination
--- NOTE | 2023-08-29 12:23 | PT.INTREAT ---
Date of service: 08/29/23 Time of Service: 10:25 PT Notes Visit Reasons: Sepsis, Pneumonia Inpatient Physical Therapy Treatment Note [facility] Date: 08/29/2023 PRECAUTIONS: Fall, Standard and Activity as Tolerated SUBJECTIVE: Nervous about biopsy tomorrow. Left hip is still very painful with lifting leg up onto bed when going sit to supine, but otherwise is much more comfortable. Still prefers to sit up in bed rather that in a chair. OBJECTIVE: ? PAIN: Pain with getting in and out of bed in left hip region. Was agreeable with letting me help him with this today to make it more comfortable, although very independent. Therapeutic Activities ([id number]): Direct one-on-one instruction in dynamic activities to improve functional performance. ?? ? BED MOBILITY/TRANSFERS? Rolling L/R: not assessed Supine-sit: SBA? Sit-supine: Min assist with left LE? Sit-stand: SBA ? Stand-sit: SBA? Bed-Chair: CGA ? Chair-bed: CGA GAIT? Assistive Device: FWW? Weight bearing: full Assist: CGA, verbal cues ? Distance:? 34 feet, ambuting out into the hallway today. ? Deviation: gait largely unremarkable Performed ankle pumps in sitting x 10 reps LAQs x 10 reps with right only seated toe raises x 10 reps standing heel raises x 10 reps ASSESSMENT:? Patient tolerates session well. Min assist with lifting left LE up with sit to stand. PLAN: Continue global strengthening per plan of care until patient is medically cleared for discharge and obtains safe discharge plan. TREATMENT CODE/TIME: ?[id number], 10:25 to 10:42 (17 minutes)
[2023-08-29 15:04] VITALS: BP 113/65; PULSE 65; RESP 18; TEMP 36.9; O2SAT 97
[2023-08-29] MEDS: Enoxaparin 40 MG/0.4 ML SYR SC (16:05)
[2023-08-29 20:08] VITALS: BP 122/70; PULSE 63; RESP 16; TEMP 36.7; O2SAT 95
[2023-08-29] MEDS: Latanoprost 0.005% 2.5 ML BTL OU (20:22)
[2023-08-30] MEDS: Hydrocortisone SOD SUC. 100 MG VIAL 50 MG IVP ×3 (02:24→18:23)
[2023-08-30 02:25] VITALS: BP 105/60; PULSE 60; RESP 16; TEMP 36.5; O2SAT 95
[2023-08-30] MEDS: Normal Saline Flush 10 ML SYR IVP ×4 (02:25→21:22)
[2023-08-30 07:34] VITALS: BP 113/66; PULSE 69; RESP 18; TEMP 36.1; O2SAT 98
[2023-08-30] MEDS: Cyanocobalamin 500 MCG TAB 1000 MCG PO (08:23)
[2023-08-30] MEDS: Cholecalciferol (Vitamin D3) 400 UNIT TAB PO (08:23)
[2023-08-30] MEDS: Midodrine 2.5 MG TAB 5 MG PO ×2 (08:23→21:21)
[2023-08-30] MEDS: Folic Acid 1 MG TAB PO (08:23)
[2023-08-30] MEDS: Thiamine 100 MG TAB PO (08:23)
[2023-08-30] MEDS: Cefpodoxime 200 MG TAB PO ×2 (08:23→21:21)
--- NOTE | 2023-08-30 09:12 | W.PM.PROGNOT ---
Date of Service Date of service: 08/30/23 Time of Service: 09:12 Assessment and Plan Assessment and plan (1) Sepsis: Status: Acute Assessment and plan: -Secondary to E. coli. -Had been switched to 2 g Rocephin daily -Changed to p.o. cefpodoxime on 08/28/2023 Qualifiers: Sepsis type: sepsis due to unspecified organism Sepsis acute organ dysfunction status: without acute organ dysfunction Qualified Code(s): A41.9 - Sepsis, unspecified organism (2) Diarrhea of presumed infectious origin: Status: Resolved Assessment and plan: -Stool bacterial antigens negative -diarrhea has resolved. (3) Complicated UTI (urinary tract infection): Status: Acute Assessment and plan: -No evidence of obstruction of his upper urinary tract. -Kidneys appear to be normal in size no hydronephrosis no stones. -Bacteremia with secondary to urinary source. 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 -Patient has apparent back interventional radiology biopsy at [facility] on 08/30/2023 -Has not needed additional as needed opiates which have been discontinued -Continue as needed pain regimen and Q8h 50 mg Solu-Cortef; will transition to taper dose p.o. prednisone tomorrow on 08/31/2023 -Continue to work with PT (5) Alcoholism: Status: Acute Assessment and plan: No evidence of acute alcohol withdrawal. CIWA scale discontinued. Can remove alcohol withdrawal precautions. (6) DVT prophylaxis: Status: Acute Assessment and plan: Enoxaparin 40 mg subcutaneously daily (7) Discharge planning issues: Status: Acute Assessment and plan: Consult with physical therapy to work with the patient. Once we have a plan for evaluation of his mass and his bacteremia has cleared he can be discharged home. He remains DNR/DNI per his request. Subjective Subjective Interval history since last seen: Patient states that he is doing well this morning and is looking forward to having his biopsy later this afternoon at [facility]. Exam Narrative Exam Narrative: Well-appearing older gentleman sitting up in the bed in no acute distress, ANO x 4, heart regular rate and rhythm, lungs clear to auscultation bilaterally, abdomen soft, nontender nondistended, decreased range of motion of the left lower extremity at the hip secondary to pain Objective Last Vital Signs Temp 97.0 F L 08/30/23 07:34 Pulse 69 08/30/23 07:34 Resp 18 08/30/23 07:34 BP 113/66 08/30/23 07:34 Pulse Ox 98 08/30/23 07:34 Laboratory Results - last 24 hr 08/23/23 17:00 Stool Calprotectin 608 H PAWSS Have you Been Recently Intoxicated or Drunk Within the Last 30 days?: No Have you Ever Experienced Previous Episodes of Alcohol Withdrawal?: No Have you ever Experienced Withdrawal Seizures?: No Have you ever Experienced Delirium Tremens(DT)s?: No Have you ever undergone Alcohol Rehabilitation Treatment (i.e, inpt ot outpatient treatment programs)?: No Have you ever Experienced Blackouts?: No Have you ever Combined Alcohol with other Downers within the last 90 days?: No Have you ever Combined Alcohol with any other Substance of Abuse during the last 90 days?: No Positive Blood Alcohol level on Presentation? [PCS.BAL]: No Evidence of Increased Autonomic Activity (i.e. HR>120, tremor, sweating, agitation, nausea)?: No Result: 0 Time Spent with Patient Time Spent with Patient: >50 minutes Time was spent: preparing to see the patient(eg.review tests), obtaining and/or reviewing separately otained hiistory, ordering medications,tests, procedures, referring, communicating with other health live in caregiver, indepentently interpreting results, counseling the patient and care coordination
--- NOTE | 2023-08-30 10:06 | CMPROGNOTE_ITS ---
Date of service: 08/30/23 Time of Service: 10:06 Care Management Progress Note Progress Note Text Progress Note Text: S/O:Harrison was sitting up in bed when CM met with him. He informed CM that he will be going to [facility] [place] around noon for a down and back IR procedure to biopsy his pelvic mass. He explained that nothing can be done to address the mass until the biopsy results are known. He stated that he feels well and his pain is well controlled. He anticipates being discharged home tomorrow. A: Harrison is a 77 year old man admitted on 08/23/23 with sepsis and pneumonia P:Anticipate Harrison will be discharged home, possibly with new home health, services when medically cleared. He will follow up with his community providers and plan of care and transport with family. He will likely require a biopsy and outpatient workup of the CT findings. CM will follow and continue to assess for discharge needs.
--- NOTE | 2023-08-30 11:51 | NT_ITS ---
Date of service: 08/30/23 Time of Service: 11:10 PT Notes Visit Reasons: Sepsis, Pneumonia Patient is going [id number] to [facility] today for a procedure.
--- NOTE | 2023-08-30 11:51 | PT.INNT ---
Date of service: 08/30/23 Time of Service: 11:10 PT Notes Visit Reasons: Sepsis, Pneumonia Patient is going [id number] to [facility] today for a procedure.
[2023-08-30] MEDS: Enoxaparin 40 MG/0.4 ML SYR SC (17:18)
[2023-08-30 17:19] VITALS: BP 128/74; PULSE 61; RESP 16; TEMP 36.4; O2SAT 99
[2023-08-30] MEDS: Psyllium PKT 1 EACH PO (21:21)
[2023-08-30] MEDS: Latanoprost 0.005% 2.5 ML BTL OU (21:22)
[2023-08-31 00:07] VITALS: BP 104/60; PULSE 56; RESP 18; TEMP 36.1; O2SAT 98
[2023-08-31] MEDS: Hydrocortisone SOD SUC. 100 MG VIAL 50 MG IVP ×2 (01:42→09:57)
[2023-08-31] MEDS: Normal Saline Flush 10 ML SYR IVP ×4 (01:42→09:58)
[2023-08-31] MEDS: Psyllium PKT 1 EACH PO (08:09)
[2023-08-31] MEDS: Midodrine 2.5 MG TAB 5 MG PO (08:10)
[2023-08-31] MEDS: Folic Acid 1 MG TAB PO (08:10)
[2023-08-31] MEDS: Thiamine 100 MG TAB PO (08:10)
[2023-08-31] MEDS: Cyanocobalamin 500 MCG TAB 1000 MCG PO (08:10)
[2023-08-31] MEDS: Cefpodoxime 200 MG TAB PO (08:10)
[2023-08-31] MEDS: Cholecalciferol (Vitamin D3) 400 UNIT TAB PO (08:10)
--- NOTE | 2023-08-31 08:45 | DSE_ITS ---
Date of service: 08/31/23 Time of Service: 08:48 DS: Diagnosis Discharge Diagnosis (1) Sepsis: Status: Acute Asessment and Plan: -Determined to have been secondary to urinary tract infection and E. 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 -Patient had interventional radiology biopsy at [facility] on 08/30/2023 -Has not needed additional as needed opiates which have been discontinued -had bene on Q8h 50 mg Solu-Cortef; -Will discharge with tapering dose of prednisone beginning at 40 mg daily (5) Alcoholism: Status: Acute Discharge Plan Disposition Patient Disposition: Home Condition: Good Discharge Details Reason For Visit: Sepsis, Pneumonia Admit Date/Time: 08/23/23 12:20 Admit Provider: Adolfo Mckenzie Attending Provider: Adolfo Mckenzie Primary Care Provider: Genevieve Peterson [facility] Course Hospital Course: Patient initially presented with sepsis likely due to UTI and was ultimately found to have E. coli bacteremia for which he was initially treated with Merrem and based on culture results transition to cefpodoxime which she will be discharged with to complete a total of 2 weeks of antibiotics. 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 Patient had IR biopsy at [facility] on 08/30/2023, and will have close follow-up with [facility] oncology and his primary care physician. Additionally, patient was started on Solu-Cortef 50 mg every 8 hours for pain, will be discharged with a tapering dose of prednisone. Home Meds and New Rx's Prescriptions: New cefpodoxime 200 mg Tablet 200 mg PO BID 6 Days Qty: 12 0RF midodrine 2.5 mg Tablet 5 mg PO TID 120 Days Qty: 720 0RF prednisone 10 mg tablet 40 mg PO DAILY Qty: 42 0RF Rx Instructions: Take 4 tabs for 4 days, then 3 tabs for 4 days, then 2 tabs for 4 days, then 1 tab for 4 days, then 1/2 tab for 4 days Continued latanoprost 0.005 % drops 1 drp ophthalmic (eye) DAILY timolol maleate 0.25 % drops 1 drp ophthalmic (eye) DAILY Rx Instructions: both eyes folic acid 1 mg tablet 1 mg PO DAILY cholecalciferol (vitamin D3) 10 mcg (400 unit) tablet 10 mcg PO DAILY cyanocobalamin (vitamin B-12) [Vitamin B-12] 1,000 mcg Tablet 1,000 mcg PO DAILY Discharge Instructions Instructions: Urinary Tract Infection in Men (DC) Referrals: HEMATOLOGY/ONC,[facility] [OTHER] - (Left sacral mass, amanda jayfranca, IR biopsy at [facility] on 08/30/2023) Activity:: Activity as Tolerated Equipment/Supplies:: No Equipment Needed Diet:: As Tolerated Discharge Orders Discharge Orders: Discharge Order (Routine); Ordered 08/31/23 Ordered By: Salazar Orellana DS: Summary Time Spent with Patient providing and/or coordinating discharge services: Greater than 30 minutes Status at Discharge Functional status at discharge: independent ambulation Overall status at discharge: patient is back to baseline Mental Status: mental status grossly normal Speech and Movement: speech and movement normal Mood: congruent mood Affect: normal affect Exam Narrative Exam Narrative: Well-appearing older gentleman sitting up in the bed in no acute distress, ANO x 4, heart regular rate and rhythm, lungs clear to auscultation bilaterally, abdomen soft, nontender nondistended, decreased range of motion of the left lower extremity at the hip secondary to pain Psych Mental Status: mental status grossly normal Speech and Movement: speech and movement normal Mood: congruent mood Affect: normal affect DS: Data Vitals/I&O Vitals and I&O: Vital Signs Temperature 97.0 F L 08/31/23 00:07 Temperature Source Tympanic 08/31/23 00:07 Pulse 56 L 08/31/23 00:07 Pulse Rhythm Regular 08/30/23 21:15 Pulse 87 08/25/23 08:01 Respiratory Rate 18 08/31/23 00:07 Respiratory Effort Normal, Non-Labored 08/30/23 21:15 Respiratory Depth Normal 08/30/23 21:15 Respiratory Pattern Normal 08/30/23 21:15 Blood Pressure 104/60 08/31/23 00:07 Blood Pressure Mean 83 08/25/23 08:01 Blood Pressure Position Supine 08/24/23 07:45 Pulse Oximetry 98 08/31/23 00:07 Oxygen Delivery Method Room Air 08/31/23 00:07 Oxygen Flow Rate 0 08/31/23 00:07 Pain Level 0 08/31/23 00:07 Comment bp called over radio 08/26/23 07:15 Intake & Output 08/30/23 08/31/23 08/31/23 17:59 05:59 17:59 Intake Total 240 / 240 Output Total 700 / 700 [id number] Balance -700 / -700 -1110 / -1810 Weight 148 lb Intake: Oral 240 / 240 Output: Urine 700 / 700 1349 Other: Urine Color Yellow Yellow Straw Straw Urine Appearance Clear Clear Urine Odor Strong Stool Size Small Moderate Stool Characteristics Soft Soft Brown Data Completed and Pending Labs on day of discharge: Labs from last 24 hours 08/23/23 17:00 Stool Calprotectin 608 H PFSH All Active Problems (Updated 08/26/23 @ 12:21 by Adolfo Mckenzie MD) E coli bacteremia (Acute) Gram-negative bacteremia (Acute) Left hip pain (Acute) Discharge planning issues (Acute) DVT prophylaxis (Acute) Alcoholism (Acute) Complicated UTI (urinary tract infection) (Acute) Sepsis (Acute) Alcohol withdrawal (Acute) Infection of superficial incisional surgical site after procedure (Acute) Neoplasm of unspecified behavior of bone, soft tissue, and skin (Acute) Medical History (Updated 08/26/23 @ 12:21 by Adolfo Mckenzie MD) Hx of adenomatous polyp of colon Macrocytosis Erectile dysfunction Megaloblastic anemia Elevated blood pressure reading Glaucoma Hearing loss Loss of balance Mild cognitive impairment, so stated Alcohol abuse Tremor Prediabetes Basal cell carcinoma Skin cancer, basal cell Surgical History (Updated 05/24/23 @ 14:02 by Viola Ramon) History of tonsillectomy History of robot-assisted laparoscopic radical prostatectomy History of colon resection 14cm removed, per pt. -BR History of ankle surgery ankle pinning 50 yrs ago History of colonoscopy Family History (Updated 05/24/23 @ 14:02 by Viola Ramon) Father Cancer Heart disease Social History Smoking/Tobacco Use Status: Former Tobacco Use Smoking risk assessment performed?: Yes Alcohol Intake: former Drug use: Never Substance use type: does not use Details: PER PT- QUIT DRINKING 2-3WEEKS AGO Housing: house Do you feel safe at home: Yes Do you feel safe in your relationship?: Yes Time Spent with Patient Time Spent with Patient: <45 minutes Time was spent: preparing to see the patient(eg.review tests), obtaining and/or reviewing separately otained hiistory, ordering medications,tests, procedures, referring, communicating with other health manager wound care, indepentently interpreting results, counseling the patient and care coordination
--- NOTE | 2023-08-31 14:29 | PDOC.CMDIS ---
Date of service: 08/31/23 Time of Service: 14:29 LACE Index Scoring Tool Questions: Length of Stay (in days): 7 - 13 Was the patient admitted via the E.D.?: Yes Comorbidities: Any Tumor and Liver or Renal Disease E.D. Visits: 1 Answers: Total Score: 14 Risk of Readmission: High Risk Care Management Discharge Plan Reason for Hospitalization: alcohol withdrawal, sepsis Discharge Plan: Harrison will be discharged home with no new services. He will follow up with his community providers and plan of care and transport with family. He will likely require a biopsy and outpatient workup of the CT findings. Patient/Family Education Needs: Review of discharge instructions, ITA resources, limitations, follow up plan, discuss Ask Me Three
== END 2023-08-31 13:46 | disposition home or self-care (01) | DRG 872 ==
LOC: ER 13:36 → ICU 13:48 → MS 08-25 13:26
PROVIDERS: Admitting Provider Internal Medicine; Emergency Provider Registered Nurse Emergency; PCP Family Medicine; Visit Provider Internal Medicine
DX: A41.51 Sepsis due to Escherichia coli [E. coli] (principal); N39.0 Urinary tract infection, site not specified; A09 Infectious gastroenteritis and colitis, unspecified; C79.72 Secondary malignant neoplasm of left adrenal gland; C79.71 Secondary malignant neoplasm of right adrenal gland; D49.2 Neoplasm of unspecified behavior of bone, soft tissue, and skin; E86.0 Dehydration; G25.0 Essential tremor; Z86.010 Personal history of colon polyps; F10.20 Alcohol dependence, uncomplicated; Z66 Do not resuscitate; M25.552 Pain in left hip
CPT/HCPCS: 36410; 00123; 36415; 49180; 76775; 80048; 80053; 82533; 82805; 84145; 84153; 86304; 87040; 87077; 87493; 87505; 87635; 93005; 93308; 96365; 96366; 97110; 97116; 97162; 97530; 99291; J1650; 71045; 71260; 73502; 74176; 80320; 81003; 81015; 82270; 82378; 82607; 82746; 83605; 83630; 83735; 83993; 84443; 84484; 85025; 87086; 87186; 93010; 99232; 99233; 99239; A0420; A0425; A0428; J1720; J1885; J1956; J2270; J3490

== ENCOUNTER 2023-09-21 11:12 | Day surgery (SDC) | payer MEDICARE, SELFPAY ==
--- NOTE | 2023-09-20 21:31 | PDOC.DSDIS_ITS ---
Date of service: 09/21/23 Time of Service: 16:22 Discharge Plan Disposition Patient Disposition: Home Condition: Good Discharge Details Reason For Visit: port placement Attending Provider: Lizbeth Moss Primary Care Provider: Genevieve Peterson Home Meds and New Rx's Prescriptions: New tramadol 50 mg tablet 50 mg PO Q4H MDD 6 PRN (Reason: pain (scale score 7-10)) Qty: 10 0RF Rx Instructions: will cause constipation Continued latanoprost 0.005 % drops 1 drp ophthalmic (eye) DAILY timolol maleate 0.25 % drops 1 drp ophthalmic (eye) DAILY Rx Instructions: both eyes folic acid 1 mg tablet 1 mg PO DAILY cholecalciferol (vitamin D3) 10 mcg (400 unit) tablet 10 mcg PO DAILY cyanocobalamin (vitamin B-12) [Vitamin B-12] 1,000 mcg Tablet 1,000 mcg PO DAILY midodrine 2.5 mg Tablet 5 mg PO TID 120 Days Qty: 720 0RF Discharge Instructions Additional Instructions: Wound Care Instruction Pain Control Use ice!? Ice keeps the swelling down and swelling is what causes pain.? Never apply ice directly to the skin.? Wrap it in a towel or cloth.? Apply ice 20 minutes on and 20 minutes off for pain control.? Use as needed. Take Tylenol 500 mg by mouth with food every 4 hours as needed for pain. Or ibuprofen 600 mg by mouth with food every 6 hours as needed for pain.? You also have a prescription for Ultram for pain >7. This medication can cause constipation. Take some Miramax at bedtime if no BM daily. ? Always wash your hands before touching your incision. ? Keep the incision clean, dry, and out of water, keep the incision out of water. ? Do not to pick at the scabs. Scabs help protect the wound. ? You can take a shower in 24 hours and wash the incision with soap and water. Pat dry/don?t scrub. It?s OK to wash around the incision. But don?t spray water directly on it. ? Pat stitches dry if they get wet. Don't rub. ? Check the incision site daily for pain, redness, drainage, swelling, or separation of the incision edges. ? Make sure any clothing that touches the incision is loose-fitting. This will prevent rubbing. If the incision is on the head, keep your child from wearing caps or other head coverings. These may rub against the incision. As your incision heals, the skin may appear pink or red. It may also feel slightly bumpy or raised. This is called a healing ridge. Over time, the color s hould fade and the raised skin will become less noticeable. When to seek medical care Call your healthcare provider right away if you have any of these: ? More pain, redness, swelling, bleeding, or foul-smelling discharge around the incision area ? Fever of 101?F (38.3?C) or higher, or as directed by your child's healthcare provider ? Shaking chills ? Vomiting or nausea that doesn?t go away ? Numbness, coldness, or tingling around the incision area, or changes in skin color ? Opening of the sutures or wound ?[facility]: [phone] -needle will be removed tomorrow after the scan. We will change dressing at that time. Activity:: no lifiting 5#'s left hand 3 days Remove Dressings/Wound Care:: Do Not Remove Shower/Bathe:: 48 hours Diet:: As Tolerated DS: Diagnosis Discharge Diagnosis (1) Left hip pain: Status: Acute (2) Macrocytosis: (3) Megaloblastic anemia: (4) Elevated blood pressure reading: (5) Glaucoma: (6) Mild cognitive impairment, so stated: (7) Alcohol abuse: (8) Prediabetes: (9) Skin cancer, basal cell: (10) Hx of adenomatous polyp of colon: (11) Encounter for care related to vascular access port: Status: Acute (12) Diverticula of colon: Status: Acute (13) Anal stricture: Status: Acute (14) Fecal incontinence: Status: Acute (15) 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 They are having no nausea or vomiting. They are tolerating liquids and a snack. The pt is not having any chest pain or SOB.? Their pain is adequately controlled. They have been able to urinate.? ?HEENT:? no eye pain/drainage/redness/swelling. Mild sore throat ?Cardio- NSR, no chest pain, BP stable- see VS record ?Pulm: no sob or productive cough. No hemoptysis ?Incision- dressing is c/d/i w/ no excessive bleeding or drainage ?I discussed with the patient the findings at the time of surgery and the patient?s progress. ?We reviewed expectations at home; what the patient could expect for recovery time, and in the post-operative period.? We discussed the importance of walking to avoid blood clots and pneumonia.? We discussed and reviewed the patient's post-operative wound care and dressing needs.?? We reviewed their step-lawson pain management plan, Rx called to the pharmacy of their choice.? We reviewed activity and limitations-see discharge instructions. We reviewed warning signs, and when to seek medical attention- see d/c instructions.?? Patient was given a postoperative follow-up appointment. Patient verbalized understanding of their postoperative instructions, how do to take care of themselves and their incision, and the pain management plan. Please see discharge instructions.?
--- NOTE | 2023-09-21 | DI.RAD_ITS ---
Exam(s) XR PORTABLE CHEST AP POST LINE EXAM: XR PORTABLE CHEST AP POST LINE CLINICAL HISTORY: s/p port placement TECHNIQUE: 2D digital imaging was performed of the chest. One image was obtained. An AP view was ob tained. COMPARISON: CR XR PORTABLE CHEST AP from 08/23/[address] CHEST W from 08/24/2023 FINDINGS: MEDIASTINUM: Normal. HEART: Normal. PULMONARY VASCULATURE: Normal. LUNGS: Clear. PLEURAL SPACE: No pleural effusion or pneumothorax. BONE:Within normal limits for the patient's age. OTHER FINDINGS:Btcqja-U-Gmpr catheter has been placed. The tip of the catheter is in the superior ve na cava. IMPRESSION: 1. No acute pulmonary findings. 2. The tip of the Kjbjqe-H-Gscv catheter is in good position in the superior vena cava. No pneumotho rax. DATA REPOSITORY: RADIATION DOSE DELIVERED:
[2023-09-21 11:31] VITALS: BP 130/85; PULSE 112; RESP 16; TEMP 36.2; O2SAT 99
--- NOTE | 2023-09-21 11:57 | ANES.PREOP_ITS ---
General Info Date of Service Date Performed: 09/21/23 Height: 5 ft 10 in Weight: 60.5 kg Body Mass Index (BMI): 19.1 Surgical Procedure: Operation Date: 09/21/23 12:25 Proposed Procedure Side Surgeon p Medi-Port Placement Left Lizbeth Moss DO Meds Allergies and Home Medications Allergies Allergy/AdvReac Type Severity Reaction Status Date / Time Penicillins AdvReac Unknown Hives Verified 09/21/23 11:44 Home Medication Medication Instructions Recorded cyanocobalamin (vitamin B-12) 1,000 mcg PO DAILY 07/13/19 1,000 mcg tablet (Vitamin B-12) cholecalciferol (vitamin D3) 10 10 mcg PO DAILY 05/25/23 mcg (400 unit) tablet folic acid 1 mg tablet 1 mg PO DAILY 05/25/23 latanoprost 0.005 % eye drops 1 drp ophthalmic (eye) DAILY 05/25/23 timolol maleate 0.25 % eye drops 1 drp ophthalmic (eye) DAILY 05/25/23 midodrine 2.5 mg tablet 5 mg (2 x 2.5 mg) PO TID 120 days 08/31/23 #720 tabs Current Visit Medications: Current Medications Generic Name Dose Route Start Last Admin Trade Name Freq PRN Reason Stop Dose Admin Acetaminophen 1,000 mg 09/21/23 06:00 Acetaminophen 500 Mg Tab PO 09/21/23 16:00 PREOP ISAIAH Gabapentin 600 mg 09/21/23 06:00 Gabapentin 300 Mg Cap PO 09/21/23 16:00 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 ISAIAH Clindamycin Phosphate/Dextrose 600 mg in 50 mls @ 100 mls/hr 09/21/23 06:00 Cleocin In D5w IVPB 09/21/23 16:00 PREOP ISAIAH Ringer's Solution 1,000 mls @ 80 mls/hr 09/21/23 06:00 IV 10/20/23 23:59 INFUSION [facility] IV Miscellaneous Supplies 1 each 09/21/23 06:00 Iv Access IV 10/20/23 23:59 DIRECTED ISAIAH Sodium Chloride 0 ml 09/21/23 06:00 Normal Saline Flush 10 Ml Syr IV 10/20/23 23:59 PRN PRN Sodium Chloride 0 ml 09/21/23 06:00 Normal Saline 10 Ml Vial IJ 10/20/23 23:59 DIRECTED PRN Sterile Water 0 ml 09/21/23 06:00 Water,Injection,Sterile 10 Ml Vial IJ 10/20/23 23:59 DIRECTED PRN PFSH Active Problems Active Problems: Problem Status Onset Code Left hip pain M25.552 Alcoholism F10.20 Infection of superficial incisional surgical site after procedure T81.41XA Neoplasm of unspecified behavior of bone, soft tissue, and skin D49.2 Medical History Medical History Hx of adenomatous polyp of colon Macrocytosis Erectile dysfunction Megaloblastic anemia Elevated blood pressure reading Glaucoma Hearing loss Loss of balance Mild cognitive impairment, so stated Alcohol abuse Tremor Prediabetes Basal cell carcinoma Skin cancer, basal cell Surgical History Surgical History History of tonsillectomy History of robot-assisted laparoscopic radical prostatectomy History of colon resection 14cm removed, per pt. -BR History of ankle surgery ankle pinning 50 yrs ago History of colonoscopy Tobacco Smoking/Tobacco Use Status: Former Tobacco Use Alcohol Alcohol Intake: former Substance Use Substance use: Never Substance use type: does not use Details: Former Alcohol use daily hard liquor. Quit 6 weeks ago per pt report. Vital Signs and Lab Results Vital Signs Most Recent Vital Signs in EMR: Most Recent Vital Signs Temp Pulse Resp BP Pulse Ox 36.2 C L 112 H 16 130/85 99 09/21/23 11:31 09/21/23 11:31 09/21/23 11:31 09/21/23 11:31 09/21/23 11:31 Lab Results Blood Type / Crossmatch: No Data to Display Complete Blood Count: White Blood Count 14.30 10^3/uL (4.4-10.8) H 08/27/23 05:46 Red Blood Count 3.25 10^6/uL (4.36-5.78) L 08/27/23 05:46 Hemoglobin 10.4 g/dL (13.5-17.5) L 08/27/23 05:46 Hematocrit 30.6 % (40.0-50.0) L 08/27/23 05:46 Platelet Count 436 10^3/uL (130-400) H 08/27/23 05:46 Venous Blood Lactate 1.3 mmol/L (0.6-1.4) 08/23/23 16:30 Complete Metabolic Panel: Sodium 138 mmol/L (136-145) 08/27/23 05:46 Potassium 3.8 mmol/L (3.5-5.1) 08/27/23 05:46 Chloride 102 mmol/L (98-107) 08/27/23 05:46 Carbon Dioxide 27.8 mmol/L (21.0-32.0) 08/27/23 05:46 BUN 13 mg/dL (7-18) 08/27/23 05:46 Creatinine 0.8 mg/dL (0.70-1.30) 08/27/23 05:46 Est GFR (CKD-EPI 2020) 92.29 (mL/min/1.73m2) 08/27/23 05:46 Magnesium 1.6 mg/dL (1.8-2.4) L 08/24/23 05:39 Calcium 8.9 mg/dL (8.5-10.1) 08/27/23 05:46 Albumin 1.7 g/dL (3.4-5.0) L 08/25/23 05:50 Glucose 178 mg/dL (74-106) H 08/27/23 05:46 Liver Function Panel: Alanine Aminotransferase (ALT/SGPT) 15 U/L (16-63) L 08/25/23 0 5:50 Aspartate Amino Transf (AST/SGOT) 21 U/L (15-37) 08/25/23 05:50 Coagulation Panel: INR International Normalized Ratio 1.1 (0.9-1.1) 09/21/23 12:1 5 Prothrombin Time 10.9 sec (9.1-11.1) 09/21/23 12:15 Cardiac Panel: Troponin I < 50 ng/L (<or=60) 08/23/23 Arterial Blood Gas: No Data to Display Venous Blood Gas: Venous Blood pH 7.38 (7.31-7.41) 08/23/23 10:56 Venous Blood Partial Pressure O2 27 mmHg 08/23/23 10:56 Venous Blood Partial Pressure CO2 38 mmHg (41-51) L 08/23/23 10 :56 Venous Blood Oxygen Saturation 45 % 08/23/23 10:56 Venous Blood HCO3 23 mmol/L (23-28) 08/23/23 10:56 Venous Blood Base Excess -3 mmol/L (-2-3) L 08/23/23 10:56 Venous Blood Total Carbon Dioxide 21 mmol/L (24-29) L 08/23/23 10:56 Pancreas Panel: No Data to Display Thyroid Panel: Thyroid Stimulating Hormone (TSH) 3.27 uIU/mL (0.36-3.74) 08/24 05:39 Infectious Disease: Coronavirus (COVID-19)(PCR) Negative (Negative) 08/23/23 10:50 Coronavirus 2019 Source Nasopharynx 08/23/23 10:50 Blood Cultures: No Data to Display Toxicology Panel: Ethyl Alcohol Level < 3.0 mg/dL (<10) 08/23/23 10:56 Anesthesia Assessment and Plan Anesthesia History Personal History: No History of Anesthesia Complications Family History: No Family History of Anesthesia Complications Exercise Tolerance Exercise Tolerance: Metabolic Equivalents<4 Pertinent Negatives Pertinent Negatives: No Symptoms of GERD Cardiac & Pulmonary Exam Cardiac Exam: Normal S1/S2 Heart Sounds Pulmonary Exam: Clear Bilateral Breath Sounds Implantable Cardiac Device Does patient have a Pacemaker or an ICD?: No Airway Exam Known Difficult Airway: No Mallampati Class: 4 Mouth Opening: Normal (> 3cm) Thyromental Distance: Greater than 3 cm Neck Range of Motion: Full ROM Neck Circumference: Normal Teeth Condition: Loose or Chipped (tooth 41 chipped and tooth 18 chipped per pt) ASA Classification ASA Score: ASA 3 Emergency Case?: No NPO Status NPO Status: NPO Clears >2 hours, Solids >8 hours Anesthesia Plan Resuscitation Status: Full Code Anesthesia Technique: General Anesthesia Airway Planned: Natural Airway Monitors Used: Standard Monitors
[2023-09-21 11:58] VITALS: BMI 19.1
[2023-09-21] MEDS: Gabapentin 300 MG CAP 600 MG PO (12:22)
[2023-09-21] MEDS: Acetaminophen 500 MG TAB 1000 MG PO (12:22)
[2023-09-21] MEDS: Lactated Ringers 1,000 ML 80 ML IV ×2 (12:31→14:38)
[2023-09-21] MEDS: CLINDAMYCIN 600 MG/50 ML BAG 100 MG IVPB (12:34)
[2023-09-21 12:38] LABS: INR 1.1 (0.9-1.1); Prothrombin Time 10.9 sec (9.1-11.1)
--- NOTE | 2023-09-21 12:46 | W.ANESPRE ---
General Info Height: 5 ft 10 in Weight: 60.5 kg Body Mass Index (BMI): 19.1 Surgical Procedure: Operation Date: 09/21/23 12:25 Proposed Procedure Side Surgeon p Medi-Port Placement Left DO Keren Ramirez Allergies and Home Medications Allergies Allergy/AdvReac Type Severity Reaction Status Date / Time Penicillins AdvReac Unknown Hives Verified 09/21/23 11:44 Home Medication Medication Instructions Recorded cyanocobalamin (vitamin B-12) 1,000 mcg PO DAILY 07/13/19 1,000 mcg tablet (Vitamin B-12) cholecalciferol (vitamin D3) 10 10 mcg PO DAILY 05/25/23 mcg (400 unit) tablet folic acid 1 mg tablet 1 mg PO DAILY 05/25/23 latanoprost 0.005 % eye drops 1 drp ophthalmic (eye) DAILY 05/25/23 timolol maleate 0.25 % eye drops 1 drp ophthalmic (eye) DAILY 05/25/23 midodrine 2.5 mg tablet 5 mg (2 x 2.5 mg) PO TID 120 days 08/31/23 #720 tabs Current Visit Medications: Current Medications Generic Name Dose Route Start Last Admin Trade Name Freq PRN Reason Stop Dose Admin Acetaminophen 1,000 mg 09/21/23 06:00 09/21/23 12:22 Acetaminophen 500 Mg Tab PO 09/21/23 16:00 1,000 mg PREOP ISAIAH Administration Gabapentin 600 mg 09/21/23 06:00 09/21/23 12:22 Gabapentin 300 Mg Cap PO 09/21/23 16:00 600 mg BAG BUNDLER ISAIAH Administration Clindamycin Phosphate/Dextrose 600 mg in 50 mls @ 100 mls/hr 09/21/23 06:00 09/21/23 12:34 Cleocin In D5w IVPB 09/21/23 16:00 100 mls/hr PREOP ISAIAH Administration Ringer's Solution 1,000 mls @ 80 mls/hr 09/21/23 06:00 09/21/23 12:31 IV 10/20/23 23:59 80 mls/hr INFUSION ISAIAH Administration IV Miscellaneous Supplies 1 each 09/21/23 06:00 Iv Access IV 10/20/23 23:59 DIRECTED ISAIAH Sodium Chloride 0 ml 09/21/23 06:00 Normal Saline Flush 10 Ml Syr IV 10/20/23 23:59 PRN PRN Sodium Chloride 0 ml 09/21/23 06:00 Normal Saline 10 Ml Vial IJ 10/20/23 23:59 DIRECTED PRN Sterile Water 0 ml 09/21/23 06:00 Water,Injection,Sterile 10 Ml Vial IJ 10/20/23 23:59 DIRECTED PRN PFSH Active Problems Active Problems: Problem Status Onset Code Left hip pain M25.552 Alcoholism F10.20 Infection of superficial incisional surgical site after procedure T81.41XA Neoplasm of unspecified behavior of bone, soft tissue, and skin D49.2 Medical History Medical History Hx of adenomatous polyp of colon Macrocytosis Erectile dysfunction Megaloblastic anemia Elevated blood pressure reading Glaucoma Hearing loss Loss of balance Mild cognitive impairment, so stated Alcohol abuse Tremor Prediabetes Basal cell carcinoma Skin cancer, basal cell Surgical History Surgical History History of tonsillectomy History of robot-assisted laparoscopic radical prostatectomy History of colon resection 14cm removed, per pt. -BR History of ankle surgery ankle pinning 50 yrs ago History of colonoscopy Tobacco Smoking/Tobacco Use Status: Former Tobacco Use Alcohol Alcohol Intake: former Substance Use Substance use: Never Substance use type: does not use Details: Former Alcohol use daily hard liquor. Quit 6 weeks ago per pt report. Vital Signs and Lab Results Vital Signs Most Recent Vital Signs in EMR: Most Recent Vital Signs Temp Pulse Resp BP Pulse Ox 36.2 C L 112 H 16 130/85 99 09/21/23 11:31 09/21/23 11:31 09/21/23 11:31 09/21/23 11:31 09/21/23 11:31 Lab Results Blood Type / Crossmatch: No Data to Display Complete Blood Count: White Blood Count 14.30 10^3/uL (4.4-10.8) H 08/27/23 05:46 Red Blood Count 3.25 10^6/uL (4.36-5.78) L 08/27/23 05:46 Hemoglobin 10.4 g/dL (13.5-17.5) L 08/27/23 05:46 Hematocrit 30.6 % (40.0-50.0) L 08/27/23 05:46 Platelet Count 436 10^3/uL (130-400) H 08/27/23 05:46 Venous Blood Lactate 1.3 mmol/L (0.6-1.4) 08/23/23 16:30 Complete Metabolic Panel: Sodium 138 mmol/L (136-145) 08/27/23 05:46 Potassium 3.8 mmol/L (3.5-5.1) 08/27/23 05:46 Chloride 102 mmol/L (98-107) 08/27/23 05:46 Carbon Dioxide 27.8 mmol/L (21.0-32.0) 08/27/23 05:46 BUN 13 mg/dL (7-18) 08/27/23 05:46 Creatinine 0.8 mg/dL (0.70-1.30) 08/27/23 05:46 Est GFR (CKD-EPI 2020) 92.29 (mL/min/1.73m2) 08/27/23 05:46 Magnesium 1.6 mg/dL (1.8-2.4) L 08/24/23 05:39 Calcium 8.9 mg/dL (8.5-10.1) 08/27/23 05:46 Albumin 1.7 g/dL (3.4-5.0) L 08/25/23 05:50 Glucose 178 mg/dL (74-106) H 08/27/23 05:46 Liver Function Panel: Alanine Aminotransferase (ALT/SGPT) 15 U/L (16-63) L 08/25/23 05:50 Aspartate Amino Transf (AST/SGOT) 21 U/L (15-37) 08/25/23 05:50 Coagulation Panel: INR International Normalized Ratio 1.1 (0.9-1.1) 09/21/23 12:15 Prothrombin Time 10.9 sec (9.1-11.1) 09/21/23 12:15 Cardiac Panel: Troponin I < 50 ng/L (<or=60) 08/23/23 Arterial Blood Gas: No Data to Display Venous Blood Gas: Venous Blood pH 7.38 (7.31-7.41) 08/23/23 10:56 Venous Blood Partial Pressure O2 27 mmHg 08/23/23 10:56 Venous Blood Partial Pressure CO2 38 mmHg (41-51) L 08/23/23 10:56 Venous Blood Oxygen Saturation 45 % 08/23/23 10:56 Venous Blood HCO3 23 mmol/L (23-28) 08/23/23 10:56 Venous Blood Base Excess -3 mmol/L (-2-3) L 08/23/23 10:56 Venous Blood Total Carbon Dioxide 21 mmol/L (24-29) L 08/23/23 10:56 Pancreas Panel: No Data to Display Thyroid Panel: Thyroid Stimulating Hormone (TSH) 3.27 uIU/mL (0.36-3.74) 08/24/23 05:39 Infectious Disease: Coronavirus (COVID-19)(PCR) Negative (Negative) 08/23/23 10:50 Coronavirus 2019 Source Nasopharynx 08/23/23 10:50 Blood Cultures: No Data to Display Toxicology Panel: Ethyl Alcohol Level < 3.0 mg/dL (<10) 08/23/23 10:56 Imaging and Studies Imaging and Studies Study information below may be from another EMR and interpreted by another provider. Please see original notes in EMR for more complete details. EKG Summary: EKG PATIENT NAME: Bo Titus Jr UNIT #: [id number] ORDERING PROVIDER: Sergey Cali M.D. PRIMARY CARE PROVIDER: HEAVENLY MORALES MD DATE/TIME OF SERVICE: 08/23/23 1031 : 1945 PERFORMING LOCATION: ER APPROVED REPORT Exam: Resting ECG Reason for Exam: dizzy Patient Location: E HR:126 bpm ECG Measurements Heart Rate 126 AXIS [place] 138 P 62 QRSd 97 QRS -64 QT 303 T81 QTc 439 Conclusion Sinus tachycardia...rate> 99 Left anterior fascicular block...axis(240,-40), init forces inf <Electronically signed by SERGEY CALI MD in [place]> E-Sign Date: 08/23/23 E-Sign Time: 104 ADDENDUM APPROVED REPORT Exam: Resting ECG Reason for Exam: dizzy Patient Location: E HR:126 bpm ECG Measurements Heart Rate 126 AXIS [place] 138 P 62 QRSd 97 QRS -64 QT 303 T81 QTc 439 Conclusion Sinus tachycardia...rate> 99 Left anterior fascicular block...axis(240,-40), init forces inf I have reviewed and I agree with the emergency room physician's ECG interpretation. Electronically signed by: <Electronically signed by Sania Castro M.D. in [place]> 08/23/23 1046 Cosigned by: Anesthesia Assessment and Plan Anesthesia History Personal History: No History of Anesthesia Complications Family History: No Family History of Anesthesia Complications Exercise Tolerance Exercise Tolerance: Metabolic Equivalents<4 Pertinent Negatives Pertinent Negatives: No Symptoms of GERD Cardiac & Pulmonary Exam Cardiac Exam: Normal S1/S2 Heart Sounds Pulmonary Exam: Clear Bilateral Breath Sounds Implantable Cardiac Device Does patient have a Pacemaker or an ICD?: No Airway Exam Known Difficult Airway: No Mallampati Class: 4 Mouth Opening: Normal (> 3cm) Thyromental Distance: Greater than 3 cm Neck Range of Motion: Full ROM Neck Circumference: Normal Teeth Condition: Loose or Chipped (tooth 41 per exam and pt reports tooth 18 is chipped ) ASA Classification ASA Score: ASA 3 Emergency Case?: No NPO Status NPO Status: NPO Clears >2 hours, Solids >8 hours Anesthesia Plan Resuscitation Status: Full Code Anesthesia Technique: General Anesthesia Airway Planned: Natural Airway Monitors Used: Standard Monitors
--- NOTE | 2023-09-21 13:46 | HPE_ITS ---
Date of service: 09/21/23 Time of Service: 13:46 Assessment and Plan Assessment and plan (1) Encounter for care related to vascular access port: Status: Acute Assessment and plan: Vascular access today-- - PLAN I discussed placing a vascular access device with the pt and S.O./family, and the alternatives to the procedure. We discussed what the port would look like, and how to take care of the port at home and the limitations that it does impose on lifestyle. We discussed that is does need to be flushed monthly when not being actively used.? We discussed how the tube is placed in surgery and how it is removed. We discussed daily maintenance and care. Care of the port was also reviewed in detailed. Risk of port placement include but are not limited to: Bleeding, infection, damage to vein, artery, nerve or lung, aspiration and pneumonia, respiratory distress or airway obstruction, complications of anesthesia. If pneumothorax occurs, may need to have a chest tube. The lines can become thrombosed and may need to be changed periodically. The pt was receive pre-op hydration and antibiotics. The patient should be off asa/NSAID/coumadin/Plavix/anticoagulants prior to the exam. 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 He is here today for report placement for consideration of chemo. 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 He has no control of his bowels at all at this time. He is able to move his bowels. He does not feel obstructed. He has not noticed any bleeding. He has lost a significant amount of weight. He did recently finish a burst dose of prednisone because the tumor is eating into his left iliac crest. He is not currently on any blood thinners. He is not diabetic. He does not smoke anymore. He has had no problems with anesthesia or local anesthetics in the past. He does have a history of a clavicle fracture. He is not sure which side it was on, clinically appears to be on the right. He is right-hand dominant. 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 (Acute) Left hip pain (Acute) Alcoholism (Acute) Infection of superficial incisional surgical site after procedure (Acute) Neoplasm of unspecified behavior of bone, soft tissue, and skin (Acute) Medical History Hx of adenomatous polyp of colon Macrocytosis Erectile dysfunction Megaloblastic anemia Elevated blood pressure reading Glaucoma Hearing loss Loss of balance Mild cognitive impairment, so stated Alcohol abuse Tremor Prediabetes Basal cell carcinoma Skin cancer, basal cell Surgical History History of tonsillectomy History of robot-assisted laparoscopic radical prostatectomy History of colon resection 14cm removed, per pt. -BR History of ankle surgery ankle pinning 50 yrs ago History of colonoscopy Family History Father Cancer Heart disease Social History Smoking/Tobacco Use Status: Former Tobacco Use Quit Date: 09/13/99 Smoking risk assessment performed?: Yes Alcohol Intake: former Drug use: Never Substance use type: does not use Details: Former Alcohol use daily hard liquor. Quit 6 weeks ago per pt report. Housing: house Do you feel safe at home: Yes Do you feel safe in your relationship?: Yes Meds Allergies and Home Medications Allergies Allergy/AdvReac Type Severity Reaction Status Date / Time Penicillins AdvReac Unknown Hives Verified 09/21/23 11:44 Home Medications Medication Instructions Recorded Confirmed Type cyanocobalamin (vitamin B-12) 1,000 mcg PO DAILY 07/13/19 09/21/23 History 1,000 mcg tablet (Vitamin B-12) cholecalciferol (vitamin D3) 10 10 mcg PO DAILY 05/25/23 09/21/23 History mcg (400 unit) tablet folic acid 1 mg tablet 1 mg PO DAILY 05/25/23 09/21/23 History latanoprost 0.005 % eye drops 1 drp ophthalmic (eye) DAILY 05/25/23 09/21/23 History timolol maleate 0.25 % eye drops 1 drp ophthalmic (eye) DAILY 05/25/23 09/21/23 History midodrine 2.5 mg tablet 5 mg (2 x 2.5 mg) PO TID 120 days 08/31/23 09/21/23 Rx #720 tabs Exam Const General: cooperative, comfortable and no acute distress Nutritional Appearance: malnourished Orientation: alert, awake and oriented x3 Other: Heart?regular rate and rhythm Lungs clear to auscultation Abdomen soft and nontender with no obstructive signs and symptoms HEAD, EYES, EARS, NECK, THROAT: Head is normocephalic, pupils equal, round, reactive to light and accommodation, ocular movement intact, sclera clear and no jaundice. ?Dentition intact. No sore throat.? No jaw pain. No thrush NECK: no lymphadenopathy.? Trachea midline.? Neck supple.? No JVD. Scarring noted on right clavicle from previous fracture. weight loss noted. Results Labs Labs: Laboratory Results - last 24 hr 09/21/23 12:15 PT 10.9 INR 1.1 Last Vital Signs Temp 36.2 C L 09/21/23 11:31 Pulse 112 H 09/21/23 11:31 Resp 16 09/21/23 11:31 BP 130/85 09/21/23 11:31 Pulse Ox 99 09/21/23 11:31 Time Spent Time spent with Patient: <40 minutes Time was spent: preparing to see the patient(eg.review tests), obtaining and/or reviewing separately otained hiistory, ordering medications,tests, procedures, referring, communicating with other health director of home care hospice, indepentently interpreting results, counseling the patient and care coordination
--- NOTE | 2023-09-21 15:12 | DI.RAD_ITS ---
Exam(s) RF LINE PLACEMENT OR EXAM: RF LINE PLACEMENT OR CLINICAL HISTORY: port placement TECHNIQUE: 2D and realtime digital imaging was performed. CONTRAST MATERIAL: Refer to procedure report. COMPARISON: No exams were available for comparison FINDINGS: Fluoroscopy was provided for Dr. Krista sharp during the performance of a port placement. The tip of the catheter appears to lie in the brachiocephalic vein.. Please refer to the procedure report for c omplete details. Ka,r=1.75 mGy IMPRESSION: RADIATION DOSE DELIVERED:
[2023-09-21] MEDS: Bupivacaine 0.25% Pres-Free 30 ML VIAL (15:16)
[2023-09-21] MEDS: Lidocaine 1% Multi-Dose W/EPI 1/100,000 50 ML VIAL (15:16)
[2023-09-21] MEDS: Normal Saline 50 ML ×2 (15:17→15:47)
[2023-09-21] MEDS: Omnipaque 300 MG/ML 50 ML BTL (15:47)
[2023-09-21] MEDS: Heparin 500 UNITS/5 ML SYRINGE (15:57)
[2023-09-21 16:05] VITALS: BP 99/62; PULSE 99; RESP 15; TEMP 36.1; O2SAT 99
--- NOTE | 2023-09-21 16:35 | ROE_ITS ---
Date of service: 09/21/23 Time of Service: 16:35 Operative Note Operative Note DATE OF PROCEDURE: 09/21/23 PRE-OP DIAGNOSIS: metastatic rectal cancer POST-OP DIAGNOSIS: same PROCEDURE: left IJ power port placement SURGEON: Lizbeth Moss ANESTHESIA TYPE: Local By Surgeon and General:No Airway Refer to Anesthesia Record ESTIMATED BLOOD LOSS: 8 PATHOLOGY: none sent COMPLICATIONS: None Patient was transported to: same day Patient's condition: stable Procedure Description: CONSENT:? ?Indications, risks, and benefits were explained at length.? Informed consent is obtained from the patient explaining the risk, benefits and alternatives to the procedure including but not limited to: bleeding/infection/ PTX/damage to vein/artery/nerve (requiring further surgery), reaction to anesthesia, thrombosis or infection requiring removal, scarring, and other untold complications ? PROCEDURE SUMMARY:? The patient is brought to the operative suite, and placed in the supine position.?? The patient is prepped and draped in the usual sterile fashion.? She did receive preOp antibiotic. ?A time out was performed. The patient was placed in Trendelenburg position. The left chest region was prepped using chlorhexidine scrub and draped in sterile fashion using a full drape and sterile probe cover employed.? Anesthesia was achieved with 30cc 1% lidocaine. The introducer needle was inserted approximately two centimeters lateral to and 1 cm inferior to the normal curvature of the patient's clavicle, in the standard subclavian position. 3 attempts at cannulation of the left subclavian vein were made. All 3 were arterial. The needle was removed and pressure was held. At that point it was decided to convert the procedure to IJ. A left IJ is punctured and cannulated under ultrasound guidance. The syringe was removed and a guidewire was advanced into the introducer needle. A small incision was made at the skin surface with a scalpel and the introducer needle was exchanged for a dilator and sheath over the guidewire.? Proper positioning was ensured w/ fluoroscopy.? ?After appropriate dilation was obtained, the dilator and guidewire are exchanged over the wire for a power port catheter.? The dilator and guidewire are removed.? Proper positioning is again assured by fluoroscopy.? The tear away sheath is than removed.? The catheter is then tunneled subcutaneously over top of the clavicle and into the subcutaneous pocket on the anterior chest wall. The incision is than extended w/ a #12 blade to create a 1? incision that encompasses the catheter.? I subcutaneous pocket is created using Metzenbaum scissors.? Electrocautery is used to provide hemostasis.? The catheter is attached to the hub and secured.?? The hub is sewn to the anterior chest wall using 2-0 prolene.? There is no bleeding at the time of closure.? The pocket is irrigated.? The catheter is accessed.? There is dark red venous return of blood.? The catheter is flushed w/ heparinized saline per protocol.? The incision is closed with 2-0 moncryl in two layers.? Once the incision is closed, we attempted to be aspirated and flush the port. Unfortunately I could not flush or draw off the port. The catheter was further interrogated with fluoroscopy. There was a question of a kink in the line. The incision was opened up and the catheter and hub repositioned. Now I am able to easily flush the port but we still cannot aspirate blood. 10 cc of 50% Omnipaque and injectable saline is used to inject port. Which does show that it is in the superior vena cava with good flow and that the line is not kinked. The port is then flushed. The incision is closed with 2-0 moncryl in two layers.? The patient is going to have a repeat CT tomorrow, and the port is accessed with the Heubner needle. This is flushed and taped into position. This can be removed tomorrow after his CT scan. The patient tolerated the procedure without any hemodynamic compromise. ?Post- procedure chest x-ray is pending at this time. The patient tolerated the procedure well without complication and transferred to the recovery room in stable condition.?
[2023-09-21 16:46] VITALS: BP 116/93; PULSE 85; RESP 16; TEMP 36.4; O2SAT 99
--- NOTE | 2023-09-21 16:47 | W.ANESPOSTOP ---
Postoperative Evaluation Date, Time and Location Date Performed: 09/21/23 Time Performed: 16:10 Patient Location: Day Surgery Unit Vital Signs Most Recent Imported Vital Signs: Most Recent Vital Signs Temp Pulse Resp BP Pulse Ox 36.4 C L 85 16 116/93 H 99 09/21/23 16:46 09/21/23 16:46 09/21/23 16:46 09/21/23 16:46 09/21/23 16:46 Pain Score Most Recent Pain Score: Most Recent Pain Score Pain Level 0 09/21/23 16:46 Assessment Mental Status: Awake (Alert & Oriented to Patient Baseline) Airway and Respiratory Function: Patent airway with normal (patient baseline) respiratory exam Cardiovascular Function: Hemodynamically Stable Hydration Status: Adequately Hydrated Nausea & Vomiting: No Nausea or Vomiting Pain: Pt. Denies Any Pain Peripheral Nerve Block: Patient did not receive a nerve block
[2023-09-21 16:59] LABS: ALT 31 U/L (16-63); AST 14 U/L (15-37); Albumin 2.5 g/dL (3.4-5.0); Alkaline Phosphatase 88 U/L (46-116); Anion Gap 7.6 mmol/L (3-11); BUN 13 mg/dL (7-18); Bilirubin, Total 0.6 mg/dL (0.2-1.0); CO2 25.4 mmol/L (21.0-32.0); CREATININE 0.7 mg/dL (0.70-1.30); Calcium 9.1 mg/dL (8.5-10.1); Chloride 102 mmol/L (98-107); Estimated GFR 96.09 (mL/min/1.73m2); Glucose 101 mg/dL (74-106); Potassium 3.9 mmol/L (3.5-5.1); Sodium 135 mmol/L (136-145); Total Protein 6.4 g/dL (6.4-8.2)
== END 2023-09-21 17:40 | disposition home or self-care (01) ==
PROVIDERS: PCP Family Medicine; Visit Provider Surgery
PROC: (CPT 36561; principal; 2023-09-21 12:15)
DX: Z45.2 Encounter for adjustment and management of vascular access device (principal); C20 Malignant neoplasm of rectum; C79.51 Secondary malignant neoplasm of bone; F10.20 Alcohol dependence, uncomplicated; R15.9 Full incontinence of feces; R73.03 Prediabetes; D75.89 Other specified diseases of blood and blood-forming organs; D53.1 Other megaloblastic anemias, not elsewhere classified
CPT/HCPCS: 36561; 36415; 71045; 77001; 80053; 85610; C1788; J0665; J0737; J1642; J2001; J2004; J2371; J2704; Q9967

== ENCOUNTER → 2023-09-22 01:35 | Outpatient (CLI) | payer MEDICARE, SELFPAY ==
[2023-09-22] MEDS: Barium Sulfate 2% W/V-Creamy Vanilla Smoothie 450 ML BTL 900 ML PO (09:56)
[2023-09-22] MEDS: Omnipaque 350 MG/ML 100 ML BTL IJ (11:11)
[2023-09-22] MEDS: Normal Saline - Diluent 50 ML VIAL IJ (11:14)
--- NOTE | 2023-09-22 11:30 | DI.CT_ITS ---
Exam(s) CT ABDOMEN PELVIS WO/W EXAM: CT ABDOMEN PELVIS WO/W CLINICAL HISTORY: COLON CANCER W/ METS C18.9 MASS AFO BOTH ADRENAL GLANDS TECHNIQUE: Imaging Protocol: Axial computed tomography images with coronal and sagittal reformatted images were created and reviewed CONTRAST MATERIAL: Intravenous: Omnipaque 350 Contrast volume:98 mL Oral: Yes COMPARISON: CT CT ABDOMEN PELVIS WO from 08/24/2023 FINDINGS: ABDOMEN: Lung Bases: Coronary artery calcification and/or stents. There is a small hiatal hernia. Liver: Normal density. No measurable mass. Portal, Superior Mesenteric, and Splenic Veins: Unremarkable. Gallbladder and Biliary Tract: No radiodense calculus or dilation. Pancreas: Normal density, no abnormal calcifications or inflammatory process. Spleen: Normal. Adrenals: There are bilateral hypodense adrenal masses. The right adrenal mass measures 3.3 x 1.9 cm . On the noncontrast examination the nodule is 7.9 Hounsfield units. This is high probability of adre nal adenoma (adrenal lesions less than 10 Hounsfield units have a very high probability of being an a denoma. The relative washout is 41 percent. (Greater than 40 percent washout is highly suggestive of adrenal adenoma. The left adrenal lesion has Hounsfield units of -10.8 most consistent with a an adre nal adenoma. Kidneys: Normal size, contour and axis. There is a 2 mm nonobstructing stone in the superior pole of the left kidney. There is a 2.3 cm simple cyst in the lower pole of the right kidney. No follow-up is recommended. Abdominal Aorta: Abdominal portion non-dilated. Atherosclerosis. Bowel: There is diffuse thickening of the wall of the rectosigmoid colon suspicious for neoplasm. Th ere is diverticulosis seen in the colon. There is no evidence of obstruction. The remainder of the bowel shows no bowel wall thickening. Appendix is unremarkable. Peritoneal Cavity: No ascites, collection or mesenteric inflammatory response. No free air. Lymph Nodes: Within normal limits. Bones: There is a are again seen destructive masses involving the sacrum and coccyx and the left esteban pelvis. There has been no significant change since the prior examination from 08/24/2023. No new os seous destructive lesions are seen. Soft Tissues: Unremarkable. PELVIS: Bladder: Symmetric distention, no gross wall thickening. Reproductive Organs: Unremarkable as visualized. Lymph Nodes: Within normal limits. Bones: Please see above under bones. IMPRESSION: 1. Findings some most suggestive of bilateral adrenal adenomas. If there is continued clinical concer n, an MRI of the adrenal glands may be obtained. 2. Bowel wall thickening in the rectosigmoid colon suspicious for neoplasm. 3. Stable destructive masses involving the left hemipelvis and the sacrum/coccyx. The findings are co nsistent with metastatic disease. RADIATION DOSE DELIVERED: 1,735.93mGy.cm Total DLP 1,735.93mGy.cm Total DLP DATA REPOSITORY: All CT scans at this facility are submitted to the National Radiology Data Registry (NRDR) Dose Index Registry (DIR) with the [employer] ([employer]). RADIATION OPTIMIZATION: All CT scans at this facility use at least one of these dose optimization te chniques: automated exposure control; mA and/or kV adjustment per patient size (includes targeted exa ms where dose is matched to clinical indication); or iterative reconstruction.
== END ==
PROVIDERS: PCP Family Medicine; Visit Provider Internal Medicine Hematology & Oncology
DX: C18.9 Malignant neoplasm of colon, unspecified (principal); D35.01 Benign neoplasm of right adrenal gland; D35.02 Benign neoplasm of left adrenal gland; C79.51 Secondary malignant neoplasm of bone; N20.0 Calculus of kidney
CPT/HCPCS: 74178; J3490

== ENCOUNTER 2023-09-22 20:03 | Inpatient (IN) | payer MEDICARE, SELFPAY ==
[2023-09-22] VITALS (35 sets, daily range): BP systolic 72–128; BP diastolic 44–89; PULSE 93–121; RESP 13–24; TEMP 36.9; O2SAT 96–100
--- NOTE | 2023-09-22 20:15 | RT.EKG_ITS ---
APPROVED REPORT Exam: Resting ECG Reason for Exam: Weakness, hypotension Patient Location: E HR:113 bpm ECG Measurements Heart Rate 113 AXIS OR 139 P 58 QRSd 83 QRS -49 QT 317 T 86 QTc 435 Conclusion Sinus tachycardia...rate> 99 Left anterior fascicular block...axis(240,-40), init forces inf Physician: no stemi
--- NOTE | 2023-09-22 20:28 | W.ED.GENAD ---
HPI General Stated Complaint: GenMedical Mode of arrival: wheelchair. ADAMA: 2 Date/Time Provider Initiated Documentation: 09/22/23 20:21. Limitations to Documentation: no limitations and altered mental status. Information obtained by: patient, family (), RN notes reviewed and old records reviewed. HPI Narrative: 77-year-old male presents to the ER with chief complaint of no urination for the last 3 days. He did have a fever of 100 yesterday was given Tylenol at 1700 today. He presents hypotensive and tachycardic. He did have a Mediport placed yesterday in the OR here at this facility as an outpatient was sent home at that time. He reports that he vomited upon arrival to the home, was feeling lethargic and weak. He does have a past medical history of colon cancer, prediabetes alcohol abuse, glaucoma, anemia and alcoholism he was admitted in August for sepsis. Related Data Home Medications Medication Instructions Recorded Confirmed cyanocobalamin (vitamin B-12) 1,000 mcg PO DAILY 07/13/19 09/22/23 1,000 mcg tablet (Vitamin B-12) cholecalciferol (vitamin D3) 10 10 mcg PO DAILY 05/25/23 09/22/23 mcg (400 unit) tablet folic acid 1 mg tablet 1 mg PO DAILY 05/25/23 09/22/23 latanoprost 0.005 % eye drops 1 drp ophthalmic (eye) DAILY 05/25/23 09/22/23 timolol maleate 0.25 % eye drops 1 drp ophthalmic (eye) DAILY 05/25/23 09/22/23 midodrine 2.5 mg tablet 5 mg (2 x 2.5 mg) PO TID 120 days 08/31/23 09/22/23 #720 tabs tramadol 50 mg tablet 50 mg PO Q4H PRN pain (scale score 09/21/23 09/22/23 7-10) #10 tabs Previous Rx's Medication Instructions Recorded midodrine 2.5 mg tablet 5 mg (2 x 2.5 mg) PO TID 120 days 08/31/23 #720 tabs tramadol 50 mg tablet 50 mg PO Q4H PRN pain (scale score 09/21/23 7-10) #10 tabs Allergies Allergy/AdvReac Type Severity Reaction Status Date / Time Penicillins AdvReac Unknown Hives Verified 09/22/23 21:42 Review of Systems All systems reviewed & are unremarkable except as noted in HPI and below Constitutional Constitutional: Reports as per HPI, Reports fever(s) and Reports lethargy Cardiovascular Cardiovascular: Denies chest pain and Denies dyspnea Respiratory Respiratory: Denies dyspnea Gastrointestinal Gastrointestinal: Denies bloating, Denies diarrhea and Denies nausea Genitourinary Genitourinary: Reports oliguria (X 3 days) and Reports difficulty urinating PFSH All Active Problems (Updated 09/23/23 @ 00:04 by Melissa Gonzalez MD) Discharge planning issues (Acute) DVT prophylaxis (Acute) Acute adrenal insufficiency (Acute) Acute urinary retention (Acute) Sepsis associated hypotension (Acute) Encounter for care related to vascular access port (Acute) Diverticula of colon (Acute) Anal stricture (Acute) Fecal incontinence (Acute) Rectal cancer metastatic to bone (Acute) Left hip pain (Acute) Alcoholism (Acute) Medical History Hx of adenomatous polyp of colon Macrocytosis Erectile dysfunction Megaloblastic anemia Elevated blood pressure reading Glaucoma Hearing loss Loss of balance Mild cognitive impairment, so stated Alcohol abuse Tremor Prediabetes Basal cell carcinoma Skin cancer, basal cell Surgical History History of tonsillectomy History of robot-assisted laparoscopic radical prostatectomy History of colon resection 14cm removed, per pt. -BR History of ankle surgery ankle pinning 50 yrs ago History of colonoscopy Family History Father Cancer Heart disease Social History Smoking/Tobacco Use Status: Former Tobacco Use Quit Date: 09/13/99 Smoking risk assessment performed?: Yes Alcohol Intake: former Drug use: Never Substance use type: does not use Details: PER PT- QUIT DRINKING 2-3WEEKS AGO Housing: house Do you feel safe at home: Yes Do you feel safe in your relationship?: Yes Exam Narrative Exam Narrative: Constitutional: Alert and oriented x2. Appears stated age. Thin body habitus. Head: Normocephalic, no trauma. Eyes: Pupils PERRL, Red reflex noted, EOM's intact. Eyelids symmetrical without lesions, discharge, or swelling. ENT: Bilateral TM's WNL, External ear normal to inspection, no mastoid TTP, swelling, or erythema, Nasal turbinates WNL, no nasal discharge. Normal dentition, Posterior pharynx WNL, no exudate. Chest: Tachycardic with a rate of 120 initially hypotensive with a blood pressure of 77/44, upon lying down his systolic does increase to 100/66 with a MAP of 71, normal S1, S2, distal pulses intact. Resp: Lungs clear to auscultation bilaterally, no wheezes, rales, or rhonchi. Abdomen: Is distended, does have a large mass like hard area to his abdomen, he denies any increasing bloating or swelling states not that I know of Musculoskeletal: Unable to assess gait, 3/5 strength to all four extremities. Skin: No suspicious rashes or lesions. Capillary refill less than 2 sec. Neurologic: Cranial nerves II-XII intact. Alert and oriented x 3. Motor: No deficits noted. Sensory: Intact bilaterally all 4 extremities. Reflexes: DTR's intact bilaterally.. Hematologic/Lymphatic: No ecchymosis, no lymphadenopathy. Course Vital Signs Vital signs: Vital Signs Temperature 36.9 C 09/22/23 20:17 Pulse 120 H 09/22/23 20:17 Respiratory Rate 18 09/22/23 20:17 Blood Pressure 72/44 L 09/22/23 20:17 Pulse Oximetry 96 09/22/23 20:17 Temperature 36.9 C 09/22/23 20:21 Temperature Source Oral 09/22/23 20:21 Pulse 120 H 09/22/23 20:21 Respiratory Rate 18 09/22/23 20:21 Respiratory Effort Normal 09/22/23 20:21 Blood Pressure 72/44 L 09/22/23 20:21 Pulse Oximetry 97 09/22/23 20:21 Oxygen Delivery Method Room Air 09/22/23 20:21 Oxygen Flow Rate 0 09/22/23 20:17 Pain Level 5 09/22/23 20:21 Lab/Test Results Lab/Test Results: 09/22/23 20:26 Blood Blood Culture - Pending 09/22/23 20:26 Blood Blood Culture - Pending Medical Decision Making 77-year-old male presents to the ER with chief complaint of no urination for the last 3 days. He did have a fever of 100 yesterday was given Tylenol at 1700 today. He presents hypotensive and tachycardic. He did have a Mediport placed yesterday in the OR here at this facility as an outpatient was sent home at that time. He reports that he vomited upon arrival to the home, was feeling lethargic and weak. He does have a past medical history of colon cancer, prediabetes alcohol abuse, glaucoma, anemia and alcoholism he was admitted in August for sepsis. Sepsis workup ordered including fluid resuscitation serial lactates and blood cultures x 2. Reeves inserted by kennel staff member, 1100 cc urine output noted. Blood pressure is improved blood pressure is 128/58, heart rate is 103. 2156: Spoke with Dr. Gonzalez regarding patient case and details, she recommends CT/Abd pelvis with Contrast and CT lumbar spine with contrast. 2 g Rocephin and 500 of Flagyl IV piggyback ordered. L-spine CT shows no evidence of canal stenosis or foraminal narrowing. It does show a large left pelvic mass which extends into the left gluteal musculature which is measuring approximately 11 x 14 x 13 cm. 2330: Spoke again with Dr. Gonzalez who agrees to accept patient for admission. Blood pressure is improved, informed patient on plan of care he verbalized understanding is in agreement with plan. This text was generated using [employer] system, please disregard any oddities of phrase or misspellings. Medical Records Medical records reviewed: Yes I reviewed the patient's medical records. Imaging Data Radiologic Study: Imaging: CT Scan Radiologist's impression: CT ABDOMEN PELVIS WO/W 09/22/2023 10:53 FINDINGS: Diaphragm: Tiny hiatal hernia. Liver: No mass. Gallbladder and bile ducts: No calcified stones. No ductal dilation. Pancreas: No ductal dilation. No masses. Spleen: No splenomegaly or focal lesions. Adrenal glands: Low-density adrenal lesions consistent with benign adenomas on previous noncontrast imaging. Kidneys and ureters: No renal masses or hydronephrosis bilaterally. Benign-appearing renal cyst(s) and/or probable cyst(s). Stomach and bowel: Rightward mass effect on sigmoid colon rectum due to the large pelvic mass, left lateral rectal wall indistinguishable from the mass. Colonic diverticulosis without diverticulitis. No colonic obstruction. No focal pathology in the small bowel. Appendix: No evidence of appendicitis. Intraperitoneal space: See Stomach and bowel finding. Vasculature: Atherosclerosis. No aortic aneurysm. Lymph nodes: No significantly enlarged lymph nodes. Urinary bladder: Reeves catheter in a moderately thick-walled decompressed urinary bladder. The bladder wall is poorly assessed given decompression. Reproductive: Unremarkable as visualized. Bones/joints: Large left pelvic mass involving left pelvic sidewall, sacrum, ischium, extending into the left gluteal musculature, approximately 11 x 14 x 13 cm. Erosive disease involving left ischial a likely malignant or metastatic. Similar finding in the sacrum. No acute fracture or subluxation. Soft tissues: No suspicious lesions. IMPRESSION: 1. Large left pelvic mass involving left pelvic sidewall, sacrum, ischium, extending into the left gluteal musculature, approximately 11 x 14 x 13 cm, likely malignant or metastatic. 2. Reeves catheter in a moderately thick-walled decompressed urinary bladder. 3. Rightward mass effect on sigmoid colon rectum due to the large pelvic mass, left lateral rectal wall indistinguishable from the mass. There could be contiguous extension of malignancy into the rectum. 4. Additional findings as described. Thank you for allowing us to participate in the care of your patient. Dictated and Authenticated by: Porsche Luke MD Lab Data Lab results reviewed: Yes I reviewed the patient's lab results. Labs: 09/22/23 20:49 Blood Blood Culture - Pending 09/22/23 20:48 Blood Blood Culture - Pending Laboratory Tests Range/Units 09/22/23 09/22/23 20:44 21:13 WBC (4.4-10.8) 10^3/uL 19.55 H RBC (4.36-5.78) 10^6/uL 4.00 L Hgb (13.5-17.5) g/dL 12.3 L Hct (40.0-50.0) % 37.3 L MCV (80-95) fL 93 MCH (27.0-33.0) pg 30.8 MCHC (32.0-36.0) % 33.0 RDW (11.8-14.1) % 12.9 Plt Count (130-400) 10^3/uL 489 H MPV (8.0-11.0) fL 9.4 Immature Gran % 0.5 Neutrophils % 77.9 Lymphocytes % 8.8 Monocytes % 12.0 Eosinophils % 0.3 Basophils % 0.5 Nucleated RBC % (0.0-0.3) % 0.0 Absolute Neutrophils (1.2-6.7) 10^3/uL 15.23 H Absolute Lymphocytes (1.2-3.4) 10^3/uL 1.72 Absolute Monocytes (0.1-0.8) 10^3/uL 2.35 H Absolute Eosinophils (0.0-0.7) 10^3/uL 0.06 Absolute Basophils (0.0-0.2) 10^3/uL 0.10 RBC Morphology Normal VBG Lactate (0.6-1.4) mmol/L 1.7 H Sodium (136-145) mmol/L 130 L Potassium (3.5-5.1) mmol/L 4.0 Chloride (98-107) mmol/L 98 Carbon Dioxide (21.0-32.0) mmol/L 22.9 Anion Gap (3-11) mmol/L 9.1 BUN (7-18) mg/dL 13 Creatinine (0.70-1.30) mg/dL 1.5 H Est GFR (CKD-EPI 2020) (mL/min/1.73m2) 48.25 Glucose (74-106) mg/dL 125 H Calcium (8.5-10.1) mg/dL 9.0 Magnesium (1.8-2.4) mg/dL 1.7 L Total Bilirubin (0.2-1.0) mg/dL 0.8 AST (15-37) U/L 15 ALT (16-63) U/L 23 Alkaline Phosphatase (46-116) U/L 97 Troponin I (< or =60) ng/L < 50 Total Protein (6.4-8.2) g/dL 6.5 Albumin (3.4-5.0) g/dL 2.6 L Urine Color (Yellow) Yellow Urine Clarity (Clear) Clear Urine pH (5-8) 5.5 Ur Specific [place] (1.005-1.025) 1.010 Urine Protein (Negative) mg/dL Negative Urine Ketones (Negative) mg/dL Negative Urine Blood (Negative) Negative Urine Nitrite (Negative) Negative Urine Bilirubin (Negative) Negative Urine Urobilinogen (Up to 0.2) mg/dL 0.2 Ur Leukocyte Esterase (Negative) Negative Urine Glucose (Negative) mg/dL Negative Quality:SDOH Health Related Social Needs: No Data to Display Critical Care Time Critical Care Time Critical Care Time: Yes Total Critical Care Time: 45 Attestation: I spent greater than 35 minutes addressing this patient's acute life threatening illness. This time was spent engaged in actions directly related to the patient's care. Failure to initiate these interventions would have likely resulted in clinically significant or life threatening deterioration in the patients condition. Discharge Plan Disposition Patient Disposition: Admit to [facility] Condition: Improving Discharge Details Clinical Impression: Sepsis associated hypotension, Acute urinary retention Primary Care Provider: Genevieve Peterson ED Provider: Tracy Carrera Home Meds and New Rx's Prescriptions: No Action latanoprost 0.005 % drops 1 drp ophthalmic (eye) DAILY timolol maleate 0.25 % drops 1 drp ophthalmic (eye) DAILY Rx Instructions: both eyes folic acid 1 mg tablet 1 mg PO DAILY cholecalciferol (vitamin D3) 10 mcg (400 unit) tablet 10 mcg PO DAILY cyanocobalamin (vitamin B-12) [Vitamin B-12] 1,000 mcg Tablet 1,000 mcg PO DAILY midodrine 2.5 mg Tablet 5 mg PO TID 120 Days Qty: 720 0RF tramadol 50 mg tablet 50 mg PO Q4H MDD 6 PRN (Reason: pain (scale score 7-10)) Qty: 10 0RF Rx Instructions: will cause constipation
--- NOTE | 2023-09-22 20:30 | DI.RAD_ITS ---
Exam(s) XR PORTABLE CHEST AP EXAM: XR PORTABLE CHEST AP CLINICAL HISTORY: Hypotension,. TECHNIQUE: 2D digital imaging was performed. COMPARISON: CR CHEST 2 VIEWS PA,LAT from 12/28/2012 CR XR PORTABLE CHEST AP from 08/23/[address] CHEST W from 08/24/2023 CR XR PORTABLE CHEST AP POST LINE from 09/21/2023 FINDINGS: Single AP portable view. Distal tip of the Port-A-Cath remains in the SVC, unchanged. Heart size is upper normal. The mediastinum is not widened. There are no confluent infiltrates. No pleural effusions. Left lung nodular density most probably represents breast nipple. There is no other nodule in the ri t upper lobe region which is unchanged from 09/21/2023 but was not evident in 2013. This measures approximately 1.2 x 1.1 cm. It is unchanged from chest x-ray of 08/23/2023. There are no interval c hest x-rays between 08/23/2023 and 2012. It was not evident in 2013. IMPRESSION: Bilateral lung nodules as described above. The 1 on the left may or may not represent breast nipple. Given the history here recommend CT scan. DATA REPOSITORY: RADIATION DOSE DELIVERED:
[2023-09-22 20:59] LABS: Lactate 1.7 mmol/L (0.6-1.4)
[2023-09-22] MEDS: Normal Saline 1,000 ML 1000 ML IV (20:59)
[2023-09-22 21:01] LABS: Absolute Monocyte Count 2.35 10^3/uL (0.1-0.8); Absolute Neutrophil Count 15.23 10^3/uL (1.2-6.7); Basophils % 0.5; Eosinophils % 0.3; HCT 37.3 % (40.0-50.0); HGB 12.3 g/dL (13.5-17.5); Immature Grans % 0.5; Lymphocytes % 8.8; MCH 30.8 pg (27.0-33.0); MCV 93 fL (80-95); MPV 9.4 fL (8.0-11.0); Neutrophils % 77.9; Platelet Count 489 10^3/uL (130-400); RDW 12.9 % (11.8-14.1); RDW-SD 44.3 fL; WBC 19.55 10^3/uL (4.4-10.8)
[2023-09-22 21:20] LABS: Absolute Eosinophil Count 0.06 10^3/uL (0.0-0.7); Absolute Lymphocyte Count 1.72 10^3/uL (1.2-3.4)
[2023-09-22 21:22] LABS: Bilirubin Negative (Negative); Blood Negative (Negative); Clarity Clear (Clear); Glucose Negative (Negative); Ketones Negative (Negative); Leukocyte Esterase Negative (Negative); Nitrite Negative (Negative); Urobilinogen 0.2 mg/dL (Up to 0.2); pH 5.5 (5-8)
[2023-09-22 21:25] LABS: ALT 23 U/L (16-63); AST 15 U/L (15-37); Albumin 2.6 g/dL (3.4-5.0); Alkaline Phosphatase 97 U/L (46-116); Anion Gap 9.1 mmol/L (3-11); BUN 13 mg/dL (7-18); Bilirubin, Total 0.8 mg/dL (0.2-1.0); CO2 22.9 mmol/L (21.0-32.0); CREATININE 1.5 mg/dL (0.70-1.30); Chloride 98 mmol/L (98-107); Estimated GFR 48.25 (mL/min/1.73m2); Glucose 125 mg/dL (74-106); Magnesium 1.7 mg/dL (1.8-2.4); Sodium 130 mmol/L (136-145); Total Protein 6.5 g/dL (6.4-8.2); Troponin I < 50 ng/L (< or =60)
[2023-09-22 21:27] LABS: Diff Comment Agrees w/ Instrument; RBC Morphology Normal
--- NOTE | 2023-09-22 21:42 | DI.VRAD_ITS ---
PROCEDURE INFORMATION: Exam: XR Chest Exam date and time: 09/22/2023 21:16 Age: 77 years old Clinical indication: Other: Hypotension TECHNIQUE: Imaging protocol: Radiologic exam of the chest. Views: 1 view. COMPARISON: CR XR PORTABLE CHEST AP POST LINE 09/21/2023 17:13 FINDINGS: Tubes, catheters and devices: Left chest port in satisfactory position. Lungs: No lisa airspace consolidation on portable imaging. Pleural spaces: No pleural effusion. No pneumothorax. Heart/Mediastinum: No cardiomegaly. Bones/joints: No acute fracture. IMPRESSION: Negative portable chest. Dictated and Authenticated by: Porsche Luke MD. Ordering:FLORESITA Molina MD
--- NOTE | 2023-09-22 21:45 | DI.CT_ITS ---
Exam(s) CT LUMBAR SPINE W EXAM: CT LUMBAR SPINE W CLINICAL HISTORY: Incontinence, Rule out cauda equina. TECHNIQUE: Imaging Protocol: Axial computed tomography images with coronal and sagittal reformatted images were created and reviewed COMPARISON: CT CT ABDOMEN PELVIS W from 09/22/2023 FINDINGS: Bones: There are no lumbar vertebral fractures, listhesis, nor pars defects. Disc spaces exhibit nor mal height and there are no obvious disc herniations nor canal stenosis nor foraminal stenosis. The sacrum appears intact down to and including the S3 segment. However, S4 segment as well as the c occyx are destroyed by a huge intrapelvic mass which extends to the anterior pelvis, approximately 13 cm AP measurement of this mass and the mass also appears to extend through the destroyed posterior c ortex of the lower sacrum at this level and into the gluteal musculature. This is best seen on the r econstructed images. IMPRESSION: 1. No significant osseous lesions in the lumbar vertebrae and no disc space narrowing nor disc hernia tions nor central canal stenosis nor foraminal stenosis in the lumbosacral spine. 2. Lowermost field of view of these images reveals a huge malignant-appearing mass in the pelvis whic h is causing lytic destruction of the lower sacrum below the S3 level as well as the coccyx and is ex tending posterior to the pelvis and into the sided gluteal musculature. 3. See separate CT pelvic CT scan report dictated RADIATION DOSE DELIVERED: 639.86mGy.cm Total DLP DATA REPOSITORY: All CT scans at this facility are submitted to the National Radiology Data Registry (NRDR) Dose Index Registry (DIR) with the [employer] (ACR). RADIATION OPTIMIZATION: All CT scans at this facility use at least one of these dose optimization te chniques: automated exposure control; mA and/or kV adjustment per patient size (includes targeted exa ms where dose is matched to clinical indication); or iterative reconstruction.
--- NOTE | 2023-09-22 21:45 | DI.CT_ITS ---
Exam(s) CT ABDOMEN PELVIS W EXAM: CT ABDOMEN PELVIS W CLINICAL HISTORY: Hx of abdominal pain, Mass, incontinence. TECHNIQUE: Imaging Protocol: Axial computed tomography images with coronal and sagittal reformatted images were created and reviewed CONTRAST MATERIAL: Intravenous: Omnipaque-350 100cc Oral: None COMPARISON: CT CT ABDOMEN PELVIS WO/W from 09/22/2023 FINDINGS: VISUALIZED LUNG BASES: No nodules nor pleural effusions evident. ABDOMEN: There is no ascites. LIVER: There are no focal hepatic lesions evident. No dilated intrahepatic ducts. GALLBLADDER/BILIARY: No obvious gallbladder pathology. CBD is not dilated. PANCREAS: No evidence of pancreatic mass nor dilatation of the pancreatic duct. SPLEEN: Spleen is not enlarged. No obvious intrasplenic lesions. Splenic and portal veins are paten t. ADRENALS: Previously described bilateral low-dense adrenal nodules remain unchanged KIDNEYS:There is a benign cyst in the medial aspect of the right kidney which measures 2.2 x 2.1 cm. Does not require further imaging workup. No solid renal masses. No calculi. No solid renal masses . No calculi nor hydronephrosis.. ABDOMINAL AORTA: Lack of normal tapering but no large aneurysm. LYMPH NODES:There is no retroperitoneal nor paraaortic adenopathy. ABDOMINAL WALL: No evidence of significant anterior abdominal wall nor inguinal hernia. GI: There is no evidence of bowel obstruction, free air, nor abscess. PELVIS: GI: No evidence of appendicitis.Sigmoid diverticulosis without evidence of acute diverticulitis. Again noted is a very large malignant-appearing mass in the central-left side of the pelvis and exten ding through the pelvis into the left gluteus minimus and medialis musculature. This large malignant -appearing mass is associated with bone destruction in the left hemipelvis and of a large part of the lower sacrum and coccyx. It extends through the sciatic notch. It appears to invade the rectum. T his large malignant-appearing mass is lobulated. Measurements are approximately 14 cm AP by 14 cm wi de by 11 and deviating the prostate and rectum. It also appears to involve the rectum sidewall cm ce phalocaudal and this mass extends from the involvement in the lower sacrum all the way to the anterio r aspect of the pelvis. REPRODUCTIVE: Prostate is calcified but not enlarged but is deviated by the mass. URINARY BLADDER: There is a Reeves catheter in the urinary bladder bladder is contracted around the Fo haley catheter and there is uniform thickened wall of the urinary bladder evident. However, the bladde r does not appear to be invaded by this huge mass. Ureters are mildly dilated and contain hyperdense urine. No hydronephrosis. OSSEOUS: Lytic destruction by the mass as described above. IMPRESSION: 1. There is a very large malignant-appearing left pelvic mass involving the left pelvic sidewall, low er half of the sacrum and coccyx and ischium and extending through the left side of the pelvis into t he left-sided gluteal musculature, this mass measuring approximately 14 x 14 x 11 cm. This mass also exhibits contiguous involvement of the rectum. Difficult to determine if this mass originated in th e rectum or involves the rectum secondarily. Also causes pelvic structures to be deviated towards th e opposite-right side. There is no ascites. No bowel obstruction. 2. Reeves catheter noted in the collapsed urinary bladder. The bladder wall is significantly thickene d. 3. Sigmoid diverticulosis without evidence of acute diverticulitis. No evidence of appendicitis. 4. No bowel obstruction. No evidence of liver metastases and no ascites. Other findings as above. RADIATION DOSE DELIVERED: 639.86mGy.cm Total DLP DATA REPOSITORY: All CT scans at this facility are submitted to the National Radiology Data Registry (NRDR) Dose Index Registry (DIR) with the [employer] (ACR). RADIATION OPTIMIZATION: All CT scans at this facility use at least one of these dose optimization te chniques: automated exposure control; mA and/or kV adjustment per patient size (includes targeted exa ms where dose is matched to clinical indication); or iterative reconstruction.
[2023-09-22 21:47] LABS: Procalcitonin 1.3 ng/mL
[2023-09-22] MEDS: Lactated Ringers 1,000 ML 100 ML IV (21:55)
[2023-09-22] MEDS: cefTRIAXone 2 GM/50 ML BAG IVPB (21:59)
[2023-09-22] MEDS: Hydrocortisone SOD SUC. 100 MG VIAL IVP (22:24)
[2023-09-22] MEDS: metroNIDAZOLE 500 MG/100 ML BAG 100 MG IVPB (22:25)
[2023-09-22] MEDS: Omnipaque 350 MG/ML 100 ML BTL IJ (22:38)
[2023-09-22] MEDS: Normal Saline - Diluent 50 ML VIAL IJ (22:39)
[2023-09-22] MEDS: Normal Saline Flush 10 ML SYR IVP (22:39)
--- NOTE | 2023-09-22 23:07 | DI.VRAD_ITS ---
PROCEDURE INFORMATION: Exam: CT Abdomen And Pelvis With Contrast Exam date and time: 09/22/2023 22:36 Age: 77 years old Clinical indication: Abdominal pain; Additional info: Abd pain, mass, incontinence TECHNIQUE: Imaging protocol: Computed tomography of the abdomen and pelvis with contrast. Contrast material: OMNI 350; Contrast volume: 100 ml; Contrast route: INTRAVENOUS (IV); COMPARISON: CT ABDOMEN PELVIS WO/W 09/22/2023 10:53 FINDINGS: Diaphragm: Tiny hiatal hernia. Liver: No mass. Gallbladder and bile ducts: No calcified stones. No ductal dilation. Pancreas: No ductal dilation. No masses. Spleen: No splenomegaly or focal lesions. Adrenal glands: Low-density adrenal lesions consistent with benign adenomas on previous noncontrast imaging. Kidneys and ureters: No renal masses or hydronephrosis bilaterally. Benign-appearing renal cyst(s) and/or probable cyst(s). Stomach and bowel: Rightward mass effect on sigmoid colon rectum due to the large pelvic mass, left lateral rectal wall indistinguishable from the mass. Colonic diverticulosis without diverticulitis. No colonic obstruction. No focal pathology in the small bowel. Appendix: No evidence of appendicitis. Intraperitoneal space: See Stomach and bowel finding. Vasculature: Atherosclerosis. No aortic aneurysm. Lymph nodes: No significantly enlarged lymph nodes. Urinary bladder: Reeves catheter in a moderately thick-walled decompressed urinary bladder. The bladder wall is poorly assessed given decompression. Reproductive: Unremarkable as visualized. Bones/joints: Large left pelvic mass involving left pelvic sidewall, sacrum, ischium, extending into the left gluteal musculature, approximately 11 x 14 x 13 cm. Erosive disease involving left ischial a likely malignant or metastatic. Similar finding in the sacrum. No acute fracture or subluxation. Soft tissues: No suspicious lesions. IMPRESSION: 1. Large left pelvic mass involving left pelvic sidewall, sacrum, ischium, extending into the left gluteal musculature, approximately 11 x 14 x 13 cm, likely malignant or metastatic. 2. Reeves catheter in a moderately thick-walled decompressed urinary bladder. 3. Rightward mass effect on sigmoid colon rectum due to the large pelvic mass, left lateral rectal wall indistinguishable from the mass. There could be contiguous extension of malignancy into the rectum. 4. Additional findings as described. Dictated and Authenticated by: Porsche Luke MD. Ordering:FLORESITA Molina MD
--- NOTE | 2023-09-22 23:07 | DI.VRAD_ITS ---
PROCEDURE INFORMATION: Exam: CT Lumbar Spine With Contrast Exam date and time: 09/22/2023 22:36 Age: 77 years old Clinical indication: Other: Abd pain; Additional info: Abd pain, mass, incontinence. R/O cauda equina TECHNIQUE: Imaging protocol: Computed tomography of the lumbar spine with contrast. Contrast material: OMNI 350; Contrast volume: 100 ml; Contrast route: INTRAVENOUS (IV); COMPARISON: CT ABDOMEN PELVIS W 09/22/2023 22:36 FINDINGS: Bones/joints: No acute fracture or subluxation in the lumbar spine. Lumbar spondylosis is mild for age. There is no lisa central canal stenosis on CT. Minor distal lumbar disc bulges. No significant appearing neural foraminal stenosis on CT. Regarding pelvic bony findings please see CT abdomen pelvis same date. Soft tissues: Unremarkable. IMPRESSION: No acute lumbar bony pathology. Dictated and Authenticated by: Porsche Luke MD. Ordering:FLORESITA Molina MD
[2023-09-22 23:55] LABS: Troponin I < 50 ng/L (< or =60)
[2023-09-23] VITALS (20 sets, daily range): BP systolic 94–115; BP diastolic 53–69; PULSE 80–94; RESP 16–23; TEMP 35.7–36.3; O2SAT 97–100
--- NOTE | 2023-09-23 | DI.MRI_ITS ---
Exam(s) MR LUMBAR SPINE WO/W EXAM: MR LUMBAR SPINE WO/W CLINICAL HISTORY: concern for cord compression. TECHNIQUE: Multiplanar multisequence MRI of the Lumbar spine was performed with both pre and post co ntrast infused sequences.. Contrast injected was Dotarem 12 cc COMPARISON: CT CT LUMBAR SPINE W from 09/22/[address] ABDOMEN PELVIS WO/W from 09/22/2023 FINDINGS: Please note that the field of view of this study is of the lumbosacral spine which does not include t he entire sacrum. Indeed, the area affected by the huge pelvic mass in this patient seen on recent C T scan and is only minimally included in the field of view where it was shown to be destroying the lo wer most sacrum-coccyx as it extends through the pelvis into the left gluteal musculature. The super ior and mid aspect of the sacrum are not involved by the huge intrapelvic mass. With respect of the lumbosacral spine... Conus medullaris is at normal level. There is no evidence of conus mass nor subjacent clumping of in trathecal nerve roots to suggest arachnoiditis. The distal thecal sac appears unremarkable. It ends at the lower S1 level. This is significantly above the mass.. Bones:There are no fractures nor ominous osseous lesions in the lumbar vertebral bodies and visualize d upper sacrum. The lower most sacrum and coccyx are destroyed by the mass, as best seen on the rece nt CT scan. With respect to the individual lumbosacral spinal levels... T12-L1: Unremarkable L1-2: Normal disc height and signal. No disc herniation nor central canal stenosis.No foraminal steno sis L2-3: Normal disc height. No disc herniation nor central canal stenosis.No foraminal stenosis.No face t arthropathy. L3-4: Normal disc height. No disc herniation or central canal stenosis.No foraminal stenosis.No face t arthropathy. L4-5: Normal disc height. Mild annular bulging without a dominant disc herniation. No central canal stenosis. No foraminal stenosis. Mild degenerative changes in the facet joints. L5-S1: Normal disc height and signal. No disc herniation. No canal stenosis. No foraminal stenosis . Minimal degenerative changes in the facet joints. IMPRESSION: 1. No disc herniations nor evidence of spinal canal nor foraminal stenosis in the lumbosacral spine. 2. The distal thecal sac (which appears normal) is at lower S1 level which is significantly above the level of the huge mass described on the CT scan which is associated with osseous destruction of the lower sacrum and coccyx. 3. The huge mass is only minimally included in the field of view of this study and is seen extending through the lower most sacrum-coccyx and into the left gluteal musculature. See separate CT scan rep ort DATA REPOSITORY:
--- NOTE | 2023-09-23 | W.PM.HP.N ---
Date of service: 09/23/23 Time of Service: 00:00 Assessment and Plan Assessment and plan (1) Sepsis associated hypotension: Status: Acute Assessment and plan: In setting of intraabdominal malignancy, recent bacteremia, but also placement of infusaport on 09/21/2023. Continue ceftriaxone + flagyl initiated in the ED and add vancomycin. Continue IVF. BPs normalized. Await blood culture results. Trend procalcitonin. (2) Acute urinary retention: Status: Acute Assessment and plan: S/p villarreal. Based on the appearance of the bladder on CT, I think that the retention is not new. Would benefit from a voiding trial prior to discharge. Will not start on flomax as the patient presented with hypotension, especially given that the patient is on midodrine as outpatient. (3) Acute adrenal insufficiency: Status: Suspected Assessment and plan: Evidence of adrenal nodules on CT - I am not convinced that these are benign given intraabdominal malignancy. Continue stress dose steroids. (4) Acute kidney injury: Status: Acute Assessment and plan: In setting of sepsis/hypotension but also urinary retention, I suspect that this is multifactorial. Treat infection, maintain normal BPs, and the bladder has been decompressed. Voiding trial prior to discharge. No evidence of obstructive uropathy on CT. 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 No evidence of w/d on admission last time. It is unclear when his last drink was. Will give thiamine, MVI, monitor for w/d. (7) DVT prophylaxis: Status: Acute Assessment and plan: SC heparin given HALEY (8) Discharge planning issues: Status: Acute Assessment and plan: Changed code status to full code. Declines a conversation with palliative care. History of Present Illness History of Present Illness Chief Complaint: No urination x 3 days Narrative: Mr Titus is a 77 year old male with PMHx of rectal cancer metastatic to the sacrum, s/p infusaport placement yesterday, as well as h/o adrenal lesions (?benign), chronic left hip pain, alcohol abuse, who was brought in to [facility] ED after vomiting at home and being lethargic since his procedure yesterday. He had not urinated in 3 days, per report. On his last admission to [facility] (08/23/23 - 08/31/23), the patient had E. coli bacteremia felt to be due to a mixed complicated UTI. At that time, he did not have evidence of alcohol withdrawal. He did require stress dose steroids. He had been discharged home to complete a 14 day course of antibiotics with cefpodoxime. I am not sure if the patient was retaining urine on last admission, though I do see that he had a villarreal catheter for at least a part of that hospitalization. Today, the patient was hypotensive down to 72/44. He responded to IVF bolus. His workup reveals a leucocytosis of 19.5 with 78 segs and no bands. He has evidence of HALEY with Cr of 1.5, up from the usual 0.7. He was retaining 1100 ccs of urine. UA was negative for a UTI. A villarreal catheter was placed. CT abdomen/pelvis as well as CT lumbar spine do not show any acute abnormalities other than the previously known pelvic mass with extension into the left gluteal musculature with postulated extension into the sacrum. There is no evidence of cord compression or cauda equina clinically. The patient was empirically started on ceftriaxone + flagyl to cover for an intraabdominal process. The patient was also started on stress dose steroids. A hospitalist admission was requested. On my evaluation of the patient, he states he is already feeling a lot better, like he has more energy. He states that he is not having any pain. He does endorse a cough productive of clear sputum, denies runny nose, sore throat. He endorses having had a lot of pelvic discomfort prior to having a villarreal catheter placed. He endorses having diarrhea and fecal incontinence. We discussed his need to have an MRI. He would like to be full code (this is a change in his code status) and politely refuses a palliative care consult. He states his family understands his wishes. He would like us to try CPR/intubation, but not keep him on the ventilator forever. Review of Systems All systems reviewed & are unremarkable except as noted in HPI and below PFSH All Active Problems (Updated 09/23/23 @ 00:24 by Melissa Gonzalez MD) Acute kidney injury (Acute) Discharge planning issues (Acute) DVT prophylaxis (Acute) Acute urinary retention (Acute) Sepsis associated hypotension (Acute) Encounter for care related to vascular access port (Acute) Diverticula of colon (Acute) Anal stricture (Acute) Fecal incontinence (Acute) Rectal cancer metastatic to bone (Chronic) Left hip pain (Acute) Alcoholism (Chronic) Medical History Hx of adenomatous polyp of colon Macrocytosis Erectile dysfunction Megaloblastic anemia Elevated blood pressure reading Glaucoma Hearing loss Loss of balance Mild cognitive impairment, so stated Alcohol abuse Tremor Prediabetes Basal cell carcinoma Skin cancer, basal cell Surgical History History of tonsillectomy History of robot-assisted laparoscopic radical prostatectomy History of colon resection 14cm removed, per pt. -BR History of ankle surgery ankle pinning 50 yrs ago History of colonoscopy Family History Father Cancer Heart disease Social History Smoking/Tobacco Use Status: Former Tobacco Use Quit Date: 09/13/99 Smoking risk assessment performed?: Yes Alcohol Intake: former Drug use: Never Substance use type: does not use Details: PER PT- QUIT DRINKING 2-3WEEKS AGO Housing: house Do you feel safe at home: Yes Do you feel safe in your relationship?: Yes Meds Allergies and Home Medications Allergies Allergy/AdvReac Type Severity Reaction Status Date / Time Penicillins AdvReac Unknown Hives Verified 09/22/23 21:42 Home Medications Medication Instructions Recorded Confirmed Type cyanocobalamin (vitamin B-12) 1,000 mcg PO DAILY 07/13/19 09/22/23 History 1,000 mcg tablet (Vitamin B-12) cholecalciferol (vitamin D3) 10 10 mcg PO DAILY 05/25/23 09/22/23 History mcg (400 unit) tablet folic acid 1 mg tablet 1 mg PO DAILY 05/25/23 09/22/23 History latanoprost 0.005 % eye drops 1 drp ophthalmic (eye) DAILY 05/25/23 09/22/23 History timolol maleate 0.25 % eye drops 1 drp ophthalmic (eye) DAILY 05/25/23 09/22/23 History midodrine 2.5 mg tablet 5 mg (2 x 2.5 mg) PO TID 120 days 12/19/23 01/10/24 Rx #720 tabs tramadol 50 mg tablet 50 mg PO Q4H PRN pain (scale score 09/21/23 09/22/23 Rx 7-10) #10 tabs Exam Narrative Exam Narrative: General: A pleasant male who is resting comfortably in bed, A&Ox3, NAD Neurological: A&Ox3, no focal deficits Psychiatric: Appropriate speech pattern/content Skin: Visible skin intact HEENT: Atraumatic, normocephalic, EOMI, MMM, clear oropharynx, no submandibular or cervical lymphadenopathy, no goiter or JVD Cardiovascular: RRR, no m/r/g Lungs: CTAB Gastrointestinal: soft, nontender, nondistended Genitourinary: has a villarreal catheter Extremities: no edema BLEs, 1+ pedal pulses Results Imaging Imaging Studies: CT lumbar spine: No acute lumbar bony pathology. CXR; Negative portable chest. CT abdomen/pelvis: 1. Large left pelvic mass involving left pelvic sidewall, sacrum, ischium, extending into the left gluteal musculature, approximately 11 x 14 x 13 cm, likely malignant or metastatic. 2. Villarreal catheter in a moderately thick-walled decompressed urinary bladder. 3. Rightward mass effect on sigmoid colon rectum due to the large pelvic mass, left lateral rectal wall indistinguishable from the mass. There could be contiguous extension of malignancy into the rectum. 4. Additional findings as described. Labs 09/23/23 02:40 09/23/23 02:40 Labs: Laboratory Results - last 24 hr 09/22/23 09/22/23 09/22/23 20:44 21:13 23:30 WBC 19.55 H RBC 4.00 L Hgb 12.3 L Hct 37.3 L MCV 93 MCH 30.8 MCHC 33.0 RDW 12.9 Plt Count 489 H MPV 9.4 Immature Gran % 0.5 Neutrophils % 77.9 Lymphocytes % 8.8 Monocytes % 12.0 Eosinophils % 0.3 Basophils % 0.5 Nucleated RBC % 0.0 Absolute Neutrophils 15.23 H Absolute Lymphocytes 1.72 Absolute Monocytes 2.35 H Absolute Eosinophils 0.06 Absolute Basophils 0.10 RBC Morphology Normal VBG Lactate 1.7 H 1.0 Sodium 130 L Potassium 4.0 Chloride 98 Carbon Dioxide 22.9 Anion Gap 9.1 BUN 13 Creatinine 1.5 H Est GFR (CKD-EPI 2020) 48.25 Glucose 125 H Calcium 9.0 Magnesium 1.7 L Total Bilirubin 0.8 AST 15 ALT 23 Alkaline Phosphatase 97 Troponin I < 50 < 50 Total Protein 6.5 Albumin 2.6 L Procalcitonin 1.3 Urine Color Yellow Urine Clarity Clear Urine pH 5.5 Ur Specific [place] 1.010 Urine Protein Negative Urine Ketones Negative Urine Blood Negative Urine Nitrite Negative Urine Bilirubin Negative Urine Urobilinogen 0.2 Ur Leukocyte Esterase Negative Urine Glucose Negative Last Vital Signs Temp 36.9 C 09/22/23 20:21 Pulse 97 H 09/22/23 23:30 Resp 15 09/22/23 23:31 BP 108/61 09/22/23 23:30 Pulse Ox 99 09/22/23 23:31 Time Spent Time spent with Patient: 40-54 minutes Time was spent: preparing to see the patient(eg.review tests), obtaining and/or reviewing separately otained hiistory, ordering medications,tests, procedures, referring, communicating with other health emergency care attendant, indepentently interpreting results, counseling the patient and care coordination
[2023-09-23 00:11] LABS: ETHANOL BLOOD < 3.0 mg/dL (<10)
[2023-09-23 02:46] LABS: Lactate 0.8 mmol/L (0.6-1.4)
[2023-09-23 03:01] LABS: Abs Immature Grans 0.56 10^3/uL (0.0-0.06); HCT 32.7 % (40.0-50.0); HGB 10.9 g/dL (13.5-17.5); MCH 31.1 pg (27.0-33.0); MCHC 33.3 % (32.0-36.0); MCV 93 fL (80-95); MPV 9.4 fL (8.0-11.0); Platelet Count 379 10^3/uL (130-400); RBC 3.51 10^6/uL (4.36-5.78); RDW-SD 44.1 fL; WBC 15.22 10^3/uL (4.4-10.8)
[2023-09-23 03:21] LABS: Anion Gap 8.8 mmol/L (3-11); BUN 12 mg/dL (7-18); CO2 24.2 mmol/L (21.0-32.0); CREATININE 1.1 mg/dL (0.70-1.30); Calcium 8.7 mg/dL (8.5-10.1); Chloride 103 mmol/L (98-107); Estimated GFR 70.01 (mL/min/1.73m2); Glucose 158 mg/dL (74-106); Magnesium 1.9 mg/dL (1.8-2.4); Sodium 136 mmol/L (136-145)
[2023-09-23 03:43] LABS: Absolute Lymphocyte Count 0.61 10^3/uL (1.2-3.4); Absolute Neutrophil Count 14.31 10^3/uL (1.2-6.7); Bands % 2; Diff Comment Manual Differential; RBC Morphology Normal
[2023-09-23 03:47] LABS: COVID-19 PCR Negative (Negative); Influenza A PCR Negative (Negative); Influenza B PCR Negative (Negative); RSV PCR Negative (Negative)
[2023-09-23] MEDS: MAGNESIUM SULFATE 2 GM/50 ML BAG IVPB (03:48)
[2023-09-23 03:52] LABS: Source Nasopharynx
[2023-09-23] MEDS: Thiamine 100 MG TAB PO ×2 (03:56→09:30)
[2023-09-23] MEDS: Normal Saline Flush 10 ML SYR IVP ×6 (05:30→23:15)
[2023-09-23] MEDS: VANCOMYCIN 1,000 MG in Normal Saline 250 ML 166.6666 MG IVPB (05:30)
[2023-09-23] MEDS: Hydrocortisone SOD SUC. 100 MG VIAL 50 MG IVP ×3 (06:00→23:13)
[2023-09-23] MEDS: Heparin 5,000 UNITS/ML VIAL 5000 UNITS SC ×3 (06:00→23:14)
[2023-09-23] MEDS: metroNIDAZOLE 500 MG/100 ML BAG 100 MG IVPB ×3 (06:00→17:30)
[2023-09-23] MEDS: Cholecalciferol (Vitamin D3) 400 UNIT TAB PO (09:29)
[2023-09-23] MEDS: Multivitamin TAB 1 TAB PO (09:29)
[2023-09-23] MEDS: Folic Acid 1 MG TAB PO (09:29)
[2023-09-23] MEDS: Cyanocobalamin 500 MCG TAB 1000 MCG PO (09:29)
[2023-09-23] MEDS: Midodrine 2.5 MG TAB 5 MG PO ×3 (09:29→20:42)
[2023-09-23] MEDS: Gadoterate meglumine 20 ML SYRINGE 12 ML IVP (10:22)
--- NOTE | 2023-09-23 10:22 | INITIAL_ITS ---
Date of service: 09/23/23 Time of Service: 10:24 Care Management Initial Assmt Initial Assessment REASON FOR HOSPITALIZATION:: Sepsis, suspected intraabdominal source, urinary retention PREVIOUS FUNCTIONAL STATUS/SOCIAL/FAMILY SUPPORTS:: Harrison lives in a single family home in [place] with his Sania. They have two children; their daughter Yamileth is a nurse at [employer] and they have a son who lives locally. Harrison shared that they are a close and supportive family. 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 He does not use a cane or a walker for ambulatory assistance however in the past few months his mobility has been affected by the pain in his hip. He does not receive any community services. CURRENT FUNCTIONAL STATUS:: Harrison remains inpatient, he has declined a Palliative consult at this time. ADVANCE DIRECTIVES:: None on file. Has patient been provided with info about the portal/API?: Yes Did the patient sign up for the portal?: No CODE STATUS:: Full Code INSURANCE COVERAGE / FINANCIAL ISSUES:: Medicare CURRENT HOME/COMMUNITY SERVICES/EQUIPMENT:: Infusaport: [employer] PRIMARY CARE PHYSICIAN:: Genevieve Peterson POTENTIAL DISCHARGE NEEDS:: follow up with PCP and plan of care, voiding trial PATIENT/FAMILY EDUCATION NEEDS:: Review of discharge instructions, ITA resources, limitations, follow up plan, discuss Ask Me Three ANTICIPATED BARRIERS TO DISCHARGE:: None identified at this time. TRANSPORTATION:: via private vehicle with family PLAN:: Anticipate Harrison will be discharged home with no new services when medically cleared by provider. He will follow up with his community providers and plan of care and transport with family. CM will follow and continue to assess for discharge needs. 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 -BR History of ankle surgery ankle pinning 50 yrs ago History of colonoscopy Family History Father Cancer Heart disease Social History Smoking/Tobacco Use Status: Former Tobacco Use Quit Date: 09/13/99 Smoking risk assessment performed?: Yes Alcohol Intake: former Drug use: Never Substance use type: does not use Details: PER PT- QUIT DRINKING 2-3WEEKS AGO Housing: house Do you feel safe at home: Yes Do you feel safe in your relationship?: Yes Readmission Within the Past 30 Days Yes or No: Yes Date of First Admission Date of 1st Admission: 08/23/23 Date of this Admission Date of Admission: 09/23/23 SDOH(Care Management) Screening Will the Patient Participate in the Screening?: Yes Do you worry about having a steady place to live?: no In the past 12 months, have you had to go without electric, gas, oil or water in your home?: no Have you or anyone in your house had to go without enough food to eat?: no Has lack of transportation kept you from medical appointments or from doing things needed for daily living?: no Has anyone in your support network made you feel unsafe for any reason?: no Health Related Social Needs Health related social needs details: no problem on the above questions.
--- NOTE | 2023-09-23 15:54 | CHAPLAIN ---
Bo was in bed reading the newspaper when I visited. His was in the room with him. I introduced myself and explained my role. Bo said he is aware of the wheelage clerk here and isn't interested in further conversation. According to his History and Physical note, Bo changed his status to full code, and politely declined palliative care. He was here about a month ago before receiving his current diagnsis. His mentioned visiting the chapel and liking it. I encouraged her to spend time there anytime she'd like. 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
--- NOTE | 2023-09-23 16:52 | PHA.REVIEW2 ---
Pharmacy Admission Review Admission Clinical Review Admission Pharmacy Review: (Updated 09/23/23 @ 00:24 by Melissa Gonzalez MD) Acute kidney injury (Acute) Discharge planning issues (Acute) DVT prophylaxis (Acute) Acute urinary retention (Acute) Sepsis associated hypotension (Acute) Penicillins Adverse Reaction (Unknown, Verified 09/22/23 21:42) Hives Resuscitation Status Full Code Height 5 ft 10 in Weight 60.328 kg Pharmacy Admission Review Renal Dosing Renal Dosing: BUN 12 mg/dL (7-18) 09/23/23 02:40 Creatinine 1.1 mg/dL (0.70-1.30) 09/23/23 02:40 Medications needing adjustments: Reviewed (CrCl 49.51 mL/min) Anticoagulation Anticoagulation: Hgb 10.9 g/dL (13.5-17.5) L 09/23/23 02:40 Hct 32.7 % (40.0-50.0) L 09/23/23 02:40 Plt Count 379 10^3/uL (130-400) 09/23/23 02:40 Creatinine 1.1 mg/dL (0.70-1.30) 09/23/23 02:40 DVT Prophylaxis: Reviewed Medications: Heparin (5000 units q8h) Relevant Labs Relevant Labs: Sodium 136 mmol/L (136-145) 09/23/23 02:40 Potassium 4.0 mmol/L (3.5-5.1) 09/23/23 02:40 Chloride 103 mmol/L (98-107) 09/23/23 02:40 Magnesium 1.9 mg/dL (1.8-2.4) 09/23/23 02:40 Electrolytes, C-Reactive P, ESR: Reviewed Cardiac Review Cardiac Review: Blood Pressure 107/65 1546 Blood Pressure 94/57 1132 Blood Pressure 107/63 0902 Troponin I < 50 ng/L (< or =60) 09/22/23 23:30 BP, HR, EF%: Reviewed (HR/BP WNL) QTc Review QTc: Reviewed (435 09/22/23) IV to PO Switch IV Medications: Reviewed Home Meds Home Med List reviewed: Reviewed Current Meds Current Medication Order Review: Reviewed Pharmacy Antibiotic Review Relevant Labs: Relevant Labs 09/22/23 20:44 Procalcitonin 1.3 Pharmacy Antibiotic Activity: C/S review and Reviewed, no change Comments: Current regimen of ceftriaxone 2g q24h and vancomcyin 1.25g q24h for estimated AUC of 631 and trough of 15.6. Confirmed with nursing that loading dose of 1000mg of vancomycin was given today at 0530 (during downtime). Blood cultures pending. WBC decreased from 19.55 to 15.22.
--- NOTE | 2023-09-23 17:13 | PGE_ITS ---
Date of Service Date of service: 09/23/23 Time of Service: 17:13 Assessment and Plan Assessment and plan (1) Sepsis associated hypotension: Status: Acute Assessment and plan: unclear as to whether or not this was sepsis. blood cultures results are pending. He did have a leukocytosis on admission of 19,000 and this has come down to 15,000. He did have a mildly elevated lactate of 1.7 on admission which has normalized. Procalcitonin however was mildly elevated at 1.7. UA however looked benign. CT abdomen and pelvis again demonstrated the large pelvic mass 14 x14 x 11 cm involving the sacrum, contiguous w/ the rectum and involving the left gluteal musculaature. MRI of the pelvis was done today and did not show any cord compression, the tumor is below the conus. continue broad spectrum antibiotics w/ Ceftriaxone and Flagyl pending blood cultures. Suspect source is intrabdominal from the malignancy. 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 Unfortunately he was tapered off prednisone and probably needs to remain on cortisteroid replacement indefinitely. He finished the prednisone on Wednesday (2 days prior to admission last night) (2) Acute urinary retention: Status: Acute Assessment and plan: continue w/ villarreal catheter (3) Acute adrenal insufficiency: Status: Suspected Assessment and plan: patient is doing better w/ no hypotension since going on stress dose hydrocortisone. He should go home on oral hydrocortisone for A.I. (4) Acute kidney injury: Status: Acute Assessment and plan: improving since villarreal was placed and he was treated w/ iv fluids. He is taking po well tonight, therefore, I have stopped his iv fluids. (5) Rectal cancer metastatic to bone: Status: Chronic Assessment and plan: patient needs to follow up w/ radiation and medical oncology. (6) Alcoholism: Status: Chronic Assessment and plan: no signs of withdrawal. (7) DVT prophylaxis: Status: Acute Assessment and plan: SC heparin given HALEY (8) Discharge planning issues: Status: Acute Assessment and plan: Changed code status to full code. Declines a conversation with palliative care. Subjective Subjective Interval history since last seen: Mr. Titus says that he feels a thousand percent better than when he presented yesterday. He apparently just weaned off his prednisone. 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 however he did present w/ sepsis symptoms and signs and elevated lactate and procalcitonin. His leukocytosis is improoving although we still do not have source for his sepsis. UA did not look suspicious (unlike last time). However he does have evidence of chronic urinary retention w/ thickened urinary bladder wall. He had UO of >1000 mL w/ placement of his villarreal and since then he has had no abdominal pains. He is eating well. I will dc his iv fluids. He remains on Vancomycin, Flagyl and Ceftriaxone. I will modify his antibiotics once we have his blood cultures back. If no growth then will just empirically tr eat for GI pathogens given his colorectal cancer/pelvic mass. I went over his MRI of his LS spine. The mass is well below the level of his conus medullaris, therefore no evidence of spinal involvement of his mass. His rectal incontinence and his bladder urinary retentiion is probably from local effects of his tumor rather than any cauda equina. Exam Narrative Exam Narrative: Bo is sitting up in bed, eating his dinner, he is alert, oriented, pleasant and in no dstress Lungs: clear Heart: RRR Abdomen: normal bowel sounds, soft, nontender, nondistended Extremities: no cyanosis or edema Objective Last Vital Signs Temp 36.3 C L 09/23/23 15:46 Pulse 83 09/23/23 15:46 Resp 18 09/23/23 15:46 BP 107/65 09/23/23 15:46 Pulse Ox 100 09/23/23 15:46 Laboratory Results - last 24 hr 09/22/23 09/22/23 09/22/23 20:44 21:13 23:30 WBC 19.55 H RBC 4.00 L Hgb 12.3 L Hct 37.3 L MCV 93 MCH 30.8 MCHC 33.0 RDW 12.9 Plt Count 489 H MPV 9.4 Immature Gran % 0.5 Neutrophils % 77.9 Band Neutrophils % Lymphocytes % 8.8 Monocytes % 12.0 Eosinophils % 0.3 Basophils % 0.5 Nucleated RBC % 0.0 Absolute Neutrophils 15.23 H Absolute Lymphocytes 1.72 Absolute Monocytes 2.35 H Absolute Eosinophils 0.06 Absolute Basophils 0.10 RBC Morphology Normal VBG Lactate 1.7 H 1.0 Sodium 130 L Potassium 4.0 Chloride 98 Carbon Dioxide 22.9 Anion Gap 9.1 BUN 13 Creatinine 1.5 H Est GFR (CKD-EPI 2020) 48.25 Glucose 125 H Calcium 9.0 Magnesium 1.7 L Total Bilirubin 0.8 AST 15 ALT 23 Alkaline Phosphatase 97 Troponin I < 50 < 50 Total Protein 6.5 Albumin 2.6 L Procalcitonin 1.3 Urine Color Yellow Urine Clarity Clear Urine pH 5.5 Ur Specific [place] 1.010 Urine Protein Negative Urine Ketones Negative Urine Blood Negative Urine Nitrite Negative Urine Bilirubin Negative Urine Urobilinogen 0.2 Ur Leukocyte Esterase Negative Urine Glucose Negative Ethyl Alcohol < 3.0 COVID-19 Source SARS-CoV-2 (PCR) Influenza Type A (PCR) Influenza Type B (PCR) RSV (PCR) 09/22/23 09/23/23 09/23/23 23:55 02:40 02:55 WBC 15.22 H RBC 3.51 L Hgb 10.9 L Hct 32.7 L MCV 93 MCH 31.1 MCHC 33.3 RDW 13.0 Plt Count 379 MPV 9.4 Immature Gran % 0.0 Neutrophils % 92.0 Band Neutrophils % 2 Lymphocytes % 4.0 Monocytes % 2.0 Eosinophils % 0.0 Basophils % 0.0 Nucleated RBC % 0.0 Absolute Neutrophils 14.31 H Absolute Lymphocytes 0.61 L Absolute Monocytes 0.30 Absolute Eosinophils 0.00 Absolute Basophils 0.00 RBC Morphology Normal VBG Lactate 0.8 Sodium 136 Potassium 4.0 Chloride 103 Carbon Dioxide 24.2 Anion Gap 8.8 BUN 12 Creatinine 1.1 Est GFR (CKD-EPI 2020) 70.01 Glucose 158 H Calcium 8.7 Magnesium 1.9 Total Bilirubin AST ALT Alkaline Phosphatase Troponin I Total Protein Albumin Procalcitonin Urine Color Urine Clarity Urine pH Ur Specific [place] Urine Protein Urine Ketones Urine Blood Urine Nitrite Urine Bilirubin Urine Urobilinogen Ur Leukocyte Esterase Urine Glucose Ethyl Alcohol COVID-19 Source Cancelled Nasopharynx SARS-CoV-2 (PCR) Cancelled Negative Influenza Type A (PCR) Negative Influenza Type B (PCR) Negative RSV (PCR) Negative Time Spent with Patient Time Spent with Patient: 25-34 minutes Time was spent: preparing to see the patient(eg.review tests), ordering medications,tests, procedures, referring, communicating with other health nonfarm animal caretaker, indepentently interpreting results and counseling the patient
[2023-09-23] MEDS: cefTRIAXone 2 GM/50 ML BAG IVPB (23:15)
[2023-09-24 00:30] VITALS: BP 107/62; PULSE 72; RESP 16; TEMP 36.2; O2SAT 99
[2023-09-24] MEDS: Normal Saline Flush 10 ML SYR IVP ×5 (00:35→21:07)
[2023-09-24] MEDS: metroNIDAZOLE 500 MG/100 ML BAG 100 MG IVPB ×4 (00:35→18:13)
[2023-09-24] MEDS: Hydrocortisone SOD SUC. 100 MG VIAL 50 MG IVP ×3 (06:41→21:07)
[2023-09-24] MEDS: Heparin 5,000 UNITS/ML VIAL 5000 UNITS SC ×3 (06:42→20:49)
[2023-09-24] MEDS: VANCOMYCIN/WATER (PEG) 1.25 GM/250 ML BAG IVPB (06:42)
[2023-09-24 07:24] LABS: Abs Immature Grans 0.07 10^3/uL (0.0-0.06); Absolute Basophil Count 0.03 10^3/uL (0.0-0.2); Absolute Eosinophil Count 0.01 10^3/uL (0.0-0.7); Absolute Lymphocyte Count 0.89 10^3/uL (1.2-3.4); Absolute Monocyte Count 0.44 10^3/uL (0.1-0.8); Basophils % 0.3; Eosinophils % 0.1; HCT 29.2 % (40.0-50.0); HGB 9.7 g/dL (13.5-17.5); Immature Grans % 0.6; Lymphocytes % 8.1; MCH 31.2 pg (27.0-33.0); MCHC 33.2 % (32.0-36.0); MCV 94 fL (80-95); MPV 10.1 fL (8.0-11.0); Neutrophils % 86.9; Platelet Count 384 10^3/uL (130-400); RBC 3.11 10^6/uL (4.36-5.78); RDW 12.9 % (11.8-14.1); WBC 10.95 10^3/uL (4.4-10.8)
[2023-09-24 07:25] LABS: Absolute Neutrophil Count 9.52 10^3/uL (1.2-6.7)
[2023-09-24 07:27] LABS: Anion Gap 9.8 mmol/L (3-11); BUN 15 mg/dL (7-18); CO2 23.2 mmol/L (21.0-32.0); CREATININE 0.8 mg/dL (0.70-1.30); Calcium 8.5 mg/dL (8.5-10.1); Chloride 107 mmol/L (98-107); Estimated GFR 92.29 (mL/min/1.73m2); Glucose 181 mg/dL (74-106); Potassium 3.3 mmol/L (3.5-5.1); Sodium 140 mmol/L (136-145)
[2023-09-24 08:02] VITALS: BP 110/71; PULSE 62; RESP 18; TEMP 35.8; O2SAT 99
[2023-09-24] MEDS: Cyanocobalamin 500 MCG TAB 1000 MCG PO (08:26)
[2023-09-24] MEDS: Multivitamin TAB 1 TAB PO (08:26)
[2023-09-24] MEDS: Cholecalciferol (Vitamin D3) 400 UNIT TAB PO (08:26)
[2023-09-24] MEDS: Folic Acid 1 MG TAB PO (08:26)
[2023-09-24] MEDS: Thiamine 100 MG TAB PO (08:26)
[2023-09-24] MEDS: Midodrine 2.5 MG TAB 5 MG PO ×3 (08:27→20:49)
[2023-09-24] MEDS: Potassium Chloride Liquid 20 MEQ PKT 40 MEQ PO (09:44)
[2023-09-24 09:54] LABS: Lab Add On Test DONE
[2023-09-24 10:08] LABS: Magnesium 2.1 mg/dL (1.8-2.4)
[2023-09-24 15:27] VITALS: BP 107/69; PULSE 62; RESP 19; TEMP 36.5; O2SAT 99
--- NOTE | 2023-09-24 16:56 | PDOC.CMPRO ---
Date of service: 09/24/23 Time of Service: 16:56 Care Management Progress Note Progress Note Text Progress Note Text: Harrison politely declined CM consult, stating he only wished to speak to the MD. CM relayed message to Hospitalist.
--- NOTE | 2023-09-24 17:07 | W.PM.PROGNOT ---
Date of Service Date of service: 09/24/23 Time of Service: 17:07 Assessment and Plan Assessment and plan (1) Sepsis associated hypotension: Status: Acute Assessment and plan: chest and abdomen images showed no pneumonia, no intrabdominal source of infection and UA was negative. I will check stool for C difficile toxin. continue Rocephin and Flagyl for now. Upon discharge will send home empirically on oral flagyl +/- Cipro. If it is C difficile then it would be appropriate to send home on Vancomycin. He will need ongoing corticosteroids to prevent adrenal insufficiency. will dc home on hydrocortisone in divided doses. (2) Acute urinary retention: Status: Acute Assessment and plan: continue w/ villarreal catheter until can be seen by urology in clinic (3) Acute adrenal insufficiency: Status: Suspected Assessment and plan: patient is doing better w/ no hypotension since going on stress dose hydrocortisone. He should go home on oral hydrocortisone for A.I. (4) Acute kidney injury: Status: Resolved Assessment and plan: resolved. has some hypokalemia being corrected, will monitor (5) Rectal cancer metastatic to bone: Status: Chronic Assessment and plan: patient needs to follow up w/ radiation and medical oncology. (6) Alcoholism: Status: Chronic Assessment and plan: no signs of withdrawal. (7) DVT prophylaxis: Status: Acute Assessment and plan: SC heparin given HALEY (8) Discharge planning issues: Status: Acute Assessment and plan: Changed code status to full code. Declines a conversation with palliative care. will dc home tomorrow if he remains stable. Subjective Subjective Interval history since last seen: Mr. Titus is doing markedly better. He has no acute complaints. No abdominal pain. Further review of systems reveals that he was having diarrhea at home w/ loose BM but was taking metamucil to try to thicken them up. Stools are more formed but still loose. C diff was never done during this admission and I have no other source for sepsis. Blood cultures have remained NGTD. Urine culture was never done. UA was unremarkable. He has had recent antibiotics for complicated UTI in the past month. He remains afebrile and his leukocytosis is resolving. He remains on Rocephin and Flagyl. I will test his stool for C diff. 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 I went over his CT w/ our surgeon to be sure that there is no abscess. She could not see any. 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 Patient is currently being followed by Dr. Yves Field. I will have the patient follow up w/ him upon discharge. Exam Narrative Exam Narrative: alert and oriented, no acute distress, no pain, eating his dinner LUngs: clear Heart: RRR Abdomen: soft, normal bowel sounds, nontender, no guarding Extremities: no cyanosis or edema. Objective Last Vital Signs Temp 36.5 C 09/24/23 15:27 Pulse 62 09/24/23 15:27 Resp 19 09/24/23 15:27 BP 107/69 09/24/23 15:27 Pulse Ox 99 09/24/23 15:27 Laboratory Results - last 24 hr 09/24/23 09/24/23 05:46 05:49 WBC 10.95 H RBC 3.11 L Hgb 9.7 L Hct 29.2 L MCV 94 MCH 31.2 MCHC 33.2 RDW 12.9 Plt Count 384 MPV 10.1 Immature Gran % 0.6 Neutrophils % 86.9 Lymphocytes % 8.1 Monocytes % 4.0 Eosinophils % 0.1 Basophils % 0.3 Nucleated RBC % 0.0 Absolute Neutrophils 9.52 H Absolute Lymphocytes 0.89 L Absolute Monocytes 0.44 Absolute Eosinophils 0.01 Absolute Basophils 0.03 Sodium 140 Potassium 3.3 L Chloride 107 Carbon Dioxide 23.2 Anion Gap 9.8 BUN 15 Creatinine 0.8 Est GFR (CKD-EPI 2020) 92.29 Glucose 181 H Calcium 8.5 Magnesium 2.1 Add-On Test Request DONE Time Spent with Patient Time Spent with Patient: 25-34 minutes Time was spent: preparing to see the patient(eg.review tests), ordering medications,tests, procedures, referring, communicating with other health out of school hours care worker, indepentently interpreting results, counseling the patient and care coordination
[2023-09-24] MEDS: Potassium Chloride Liquid 20 MEQ PKT PO (17:50)
[2023-09-24 19:43] VITALS: BP 121/68; PULSE 72; RESP 18; TEMP 36.1; O2SAT 99
[2023-09-24] MEDS: cefTRIAXone 2 GM/50 ML BAG IVPB (21:43)
[2023-09-24] MEDS: Latanoprost 0.005% 2.5 ML BTL OP (22:40)
[2023-09-25] MEDS: metroNIDAZOLE 500 MG/100 ML BAG 100 MG IVPB ×4 (00:27→17:35)
[2023-09-25] MEDS: VANCOMYCIN/WATER (PEG) 1.25 GM/250 ML BAG IVPB (06:26)
[2023-09-25] MEDS: Hydrocortisone SOD SUC. 100 MG VIAL 50 MG IVP ×2 (06:27→13:45)
[2023-09-25] MEDS: Heparin 5,000 UNITS/ML VIAL 5000 UNITS SC ×2 (06:46→13:45)
[2023-09-25 07:15] LABS: Abs Immature Grans 0.08 10^3/uL (0.0-0.06); Absolute Eosinophil Count 0.01 10^3/uL (0.0-0.7); Absolute Lymphocyte Count 1.58 10^3/uL (1.2-3.4); Absolute Monocyte Count 0.65 10^3/uL (0.1-0.8); Basophils % 0.2; Eosinophils % 0.1; HCT 29.2 % (40.0-50.0); HGB 9.6 g/dL (13.5-17.5); Immature Grans % 0.7; Lymphocytes % 13.1; MCH 31.2 pg (27.0-33.0); MCHC 32.9 % (32.0-36.0); MCV 95 fL (80-95); MPV 9.7 fL (8.0-11.0); Monocytes % 5.4; Neutrophils % 80.5; Platelet Count 420 10^3/uL (130-400); RBC 3.08 10^6/uL (4.36-5.78); RDW 12.9 % (11.8-14.1); RDW-SD 44.6 fL; WBC 12.05 10^3/uL (4.4-10.8)
[2023-09-25 07:26] LABS: Absolute Basophil Count 0.02 10^3/uL (0.0-0.2)
[2023-09-25 07:31] LABS: Anion Gap 8.8 mmol/L (3-11); BUN 15 mg/dL (7-18); CO2 23.2 mmol/L (21.0-32.0); CREATININE 0.8 mg/dL (0.70-1.30); Calcium 8.4 mg/dL (8.5-10.1); Chloride 109 mmol/L (98-107); Estimated GFR 92.29 (mL/min/1.73m2); Glucose 150 mg/dL (74-106); Potassium 3.8 mmol/L (3.5-5.1); Sodium 141 mmol/L (136-145)
[2023-09-25 07:37] VITALS: BP 129/73; PULSE 56; RESP 18; TEMP 35.8; O2SAT 99
[2023-09-25] MEDS: Multivitamin TAB 1 TAB PO (09:27)
[2023-09-25] MEDS: Cholecalciferol (Vitamin D3) 400 UNIT TAB PO (09:27)
[2023-09-25] MEDS: Normal Saline Flush 10 ML SYR IVP (09:27)
[2023-09-25] MEDS: Cyanocobalamin 500 MCG TAB 1000 MCG PO (09:28)
[2023-09-25] MEDS: Thiamine 100 MG TAB PO (09:28)
[2023-09-25] MEDS: Midodrine 2.5 MG TAB 5 MG PO ×2 (09:28→13:45)
[2023-09-25] MEDS: Folic Acid 1 MG TAB PO (09:28)
[2023-09-25 11:27] VITALS: BP 118/67; PULSE 70; RESP 16; TEMP 36.6; O2SAT 98
[2023-09-25 14:00] VITALS: BP 126/66; PULSE 76
[2023-09-25 16:16] VITALS: BP 132/76; PULSE 76; RESP 16; TEMP 36.6
--- NOTE | 2023-09-27 16:51 | W.PM.DS.N ---
Date of service: 09/25/23 Time of Service: 18:00 DS: Diagnosis Discharge Diagnosis (1) Sepsis associated hypotension: Status: Resolved Asessment and Plan: Patient is 77 yr old male w/ recently diagnosed rectal CA w/ mets to the sacrum, and probable adrenal mets who presented to [facility] 09/22/23 w/ complaints of not urinating x 3 days, increased weakness and lethargy and fever of 100. Patient had just had Mediport placed the day before. He was found to be hypotensive (BP 72/44) tachycardic HR 120 bpm but not tachypneic. He was resuscitated w/ iv fluids and blood cultures and villarreal was placed and UA obtained. UA was clean (negative for nitrites, leukocyte esterase or bacteria). Blood cultures came back no growth. Lactate was elevated at 1.7 but came back to normal at 0.8 after hydration. He had a leukocytosis of 19,550 which came down to 10,950 after treated w/ antibiotics. He had HALEY w/ creatinine 1.5 which resolved to 0.8 after fluids and stabilization of his BP. CXR and CT scan of the abdomen and pelvis were done with and without contrast. CXR did not show any infiltrates but demonstrated bilateral lung nodules that may represent nipple shadows. (note this was similar to CXR from 09/21/23 in which a different radiologist did not read any lung nodules, and patient had chest CT on 08/24/23 which had not shown any lung nodules. CT of abdomen and pelvis demonstrated bowel wall thickening of rectosigmoid suggestive of rectal cancer and a mass that was invading the sacrum and coccyx from the left hemipelvis. Patient was treated w/ stress dose hydrocortisone and put on antibiotics (Ceftriaxone and Flagyl). Blood cultures came back no growth, his leukocytosis improved although on his last day it did go up slightly to 12,000 possible effect of high dose corticosteroids. Patient was discharge home on another 7 days of Flagyl and he was put on hydrocortisone for adrenal insufficiency believed to be due to adrenal mets although the CT readings suggest bilateral adenomas based on the [place] uniits of density. A follow up PET/CT would be appropriate to rule in/out adrenal mets. MRI of his LS spine was done to evaluate his left leg weakness and stool incontinence and urinary retention. The MRI did not show any extension of the pelvic mass into the spinal cord or conus. Therefore his urinary and rectal symptoms are probably due to local effect of mass effect on his rectum and urinary bladder. He was sent home w/ indwelling villarreal catheter. He will remain on hydrocortisone at 30 mg per day in divided doses, 20 mg in the a.m. and 10 mg in the afternoon. (2) Acute urinary retention: Status: Acute Asessment and Plan: see above. patient dc home w/ indwelling villarreal, patient should follow up w/ urology to discuss feasibility of removal and control of his urinary retention. This may not be able to be accomplished until definitive response of the rectal mass to treatment occurs. (3) Acute adrenal insufficiency: Status: Suspected Asessment and Plan: continue hydrocortisone as listed above (4) Acute kidney injury: Status: Resolved Asessment and Plan: transient d/t hypotension and dehydration. 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 (7) Discharge planning issues: Status: Deleted Asessment and Plan: Patient declined meeting with the health and social care teacher to discuss any home going needs. Discharge Plan Disposition Patient Disposition: Home Condition: Improving Discharge Details Reason For Visit: Sepsis, suspected intraabdominal source, urinary r Admit Date/Time: 09/23/23 00:00 Admit Provider: Melissa Gonzalez Attending Provider: Melissa Gonzalez Primary Care Provider: Genevieve Peterson Home Meds and New Rx's Prescriptions: New hydrocortisone 10 mg tablet See Rx Instructions .ROUTE .COMPLEX Qty: 90 1RF Rx Instructions: 20 mg po qam and 10 mg q 4 pm metronidazole 500 mg tablet 500 mg PO TID 7 Days Qty: 21 0RF Continued latanoprost 0.005 % drops 1 drp ophthalmic (eye) DAILY timolol maleate 0.25 % drops 1 drp ophthalmic (eye) DAILY Rx Instructions: both eyes folic acid 1 mg tablet 1 mg PO DAILY cholecalciferol (vitamin D3) 10 mcg (400 unit) tablet 10 mcg PO DAILY cyanocobalamin (vitamin B-12) [Vitamin B-12] 1,000 mcg Tablet 1,000 mcg PO DAILY midodrine 2.5 mg Tablet 5 mg PO TID 120 Days Qty: 720 0RF tramadol 50 mg tablet 50 mg PO Q4H MDD 6 PRN (Reason: pain (scale score 7-10)) Qty: 10 0RF Rx Instructions: will cause constipation Discharge Instructions Instructions: [place] Disease (DC) Additional Instructions: YOu were treated for hypotension and dehydration and were given corticosteroids and iv fluids and iv antibiotics. Blood cultures did not grow any bacteria. Your urine was clean. Stand Alone Forms: Nursing Discharge Form Referrals: Genevieve Peterson MD [Primary Care Provider] - (Please call on Wednesday to make a follow up at for 10-14 days. ) Activity:: Activity as Tolerated Equipment/Supplies:: No Equipment Needed Diet:: Normal Diet Discharge Orders Discharge Orders: Discharge Order (Routine); Ordered 09/25/23 Ordered By: Adolfo Mckenzie Discharge Data Discharge Date/Time-TO BE ENTERED AT DEPARTURE: 09/25/23 18:51 DS: Summary Time Spent with Patient providing and/or coordinating discharge services: Greater than 30 minutes Specific discharge activities: Interview/exam of patient; review of discharge instructions, completion of prescriptions/discharge instructions; discussion w/ nursing and CM; documentation of hospital visit Status at Discharge Functional status at discharge: independent ambulation Overall status at discharge: patient is progressing back to baseline Mental Status: mental status grossly normal Speech and Movement: speech and movement normal Mood: congruent mood Affect: normal affect Quality:SDOH Health Related Social Needs: Health related social needs details no problem on the above questions. Health related social needs details: no problem on the above questions. Exam Narrative Exam Narrative: alert and oriented, no acute distress, no pain, He is sitting up visiting w/ his who is here to take him home. I discussed his ongoing concerns w/ both of them and the need for follow up w/ Dr. Yves Field to set up radiation and chemotherapy. LUngs: clear Heart: RRR Abdomen: soft, normal bowel sounds, nontender, no guarding Extremities: no cyanosis or edema. Villarreal draining clear yelllow urine Psych Mental Status: mental status grossly normal Speech and Movement: speech and movement normal Mood: congruent mood Affect: normal affect DS: Data Vitals/I&O Vitals and I&O: Vital Signs Temperature 36.6 C 09/25/23 16:16 Temperature Source Tympanic 09/25/23 16:16 Pulse 76 09/25/23 16:16 Pulse Rhythm Regular 09/25/23 17:24 Pulse 87 09/23/23 01:01 Respiratory Rate 16 09/25/23 16:16 Respiratory Effort Normal 09/25/23 17:24 Respiratory Depth Normal 09/25/23 17:24 Respiratory Pattern Normal 09/25/23 17:24 Blood Pressure 132/76 09/25/23 16:16 Blood Pressure Mean 74 09/23/23 01:01 Pulse Oximetry 98 09/25/23 11:27 Oxygen Delivery Method Room Air 09/25/23 16:16 Oxygen Flow Rate 0 09/25/23 16:16 Pain Level 0 09/25/23 16:16 Comment vitals called over radio 09/23/23 11:32 Data Completed and Pending Labs on day of discharge: Preliminary micro results at discharge 09/22/23 20:49 Blood Culture - Preliminary Blood NO GROWTH 96 HOURS 09/22/23 20:48 Blood Culture - Preliminary Blood NO GROWTH 96 HOURS PFSH All Active Problems (Updated 09/27/23 @ 16:55 by Adolfo Mckenzie MD) Acute urinary retention (Acute) Encounter for care related to vascular access port (Acute) Diverticula of colon (Acute) Anal stricture (Acute) Fecal incontinence (Acute) Rectal cancer metastatic to bone (Chronic) Left hip pain (Acute) Medical History Hx of adenomatous polyp of colon Macrocytosis Erectile dysfunction Megaloblastic anemia Elevated blood pressure reading Glaucoma Hearing loss Loss of balance Mild cognitive impairment, so stated Alcohol abuse Tremor Prediabetes Basal cell carcinoma Skin cancer, basal cell Surgical History History of tonsillectomy History of robot-assisted laparoscopic radical prostatectomy History of colon resection 14cm removed, per pt. -BR History of ankle surgery ankle pinning 50 yrs ago History of colonoscopy Family History Father Cancer Heart disease Social History Smoking/Tobacco Use Status: Former Tobacco Use Quit Date: 09/13/99 Smoking risk assessment performed?: Yes Alcohol Intake: former Drug use: Never Substance use type: does not use Details: PER PT- QUIT DRINKING 2-3WEEKS AGO Housing: house Do you feel safe at home: Yes Do you feel safe in your relationship?: Yes Time Spent with Patient Time Spent with Patient: <45 minutes Time was spent: preparing to see the patient(eg.review tests), ordering medications,tests, procedures, referring, communicating with other health customer care team coach, counseling the patient and care coordination
== END 2023-09-25 18:51 | disposition home or self-care (01) | DRG 872 ==
LOC: ER 09-23 00:59 → MS 09-23 01:50
PROVIDERS: Internal Medicine; Admitting Provider Internal Medicine; Emergency Provider Registered Nurse Emergency; PCP Family Medicine; Visit Provider Internal Medicine
DX: A41.9 Sepsis, unspecified organism (principal); E27.40 Unspecified adrenocortical insufficiency; N17.9 Acute kidney failure, unspecified; C20 Malignant neoplasm of rectum; C79.51 Secondary malignant neoplasm of bone; C79.89 Secondary malignant neoplasm of other specified sites; C79.72 Secondary malignant neoplasm of left adrenal gland; C79.71 Secondary malignant neoplasm of right adrenal gland; F10.20 Alcohol dependence, uncomplicated; R33.9 Retention of urine, unspecified; K57.30 Diverticulosis of large intestine without perforation or abscess without bleeding; K62.4 Stenosis of anus and rectum; R15.9 Full incontinence of feces; M25.552 Pain in left hip; H40.9 Unspecified glaucoma; R73.03 Prediabetes; G31.84 Mild cognitive impairment of uncertain or unknown etiology; D53.1 Other megaloblastic anemias, not elsewhere classified; D75.89 Other specified diseases of blood and blood-forming organs; Z90.49 Acquired absence of other specified parts of digestive tract; Z95.828 Presence of other vascular implants and grafts; I95.89 Other hypotension
CPT/HCPCS: 00123; 36415; 72158; 80048; 80053; 84145; 87040; 87635; 87637; 93005; 96523; 71045; 72132; 74177; 74178; 80320; 81003; 83605; 83735; 84484; 85025; 93010; 99223; 99232; 99239; J0696; J1644; J1720; J1836; J3370; J3372; J3411; J3475; J3490

== ENCOUNTER 2023-10-01 09:22 | Outpatient (REF) | payer MEDICARE, SELFPAY ==
[2023-10-01 09:50] LABS: Absolute Basophil Count 0.05 10^3/uL (0.0-0.2); Absolute Eosinophil Count 0.08 10^3/uL (0.0-0.7); Basophils % 0.3; Eosinophils % 0.5; HCT 35.8 % (40.0-50.0); HGB 11.7 g/dL (13.5-17.5); Immature Grans % 0.7; MCHC 32.7 % (32.0-36.0); MCV 95 fL (80-95); MPV 9.5 fL (8.0-11.0); Monocytes % 8.3; Neutrophils % 75.2; Platelet Count 449 10^3/uL (130-400); RBC 3.78 10^6/uL (4.36-5.78); RDW 13.7 % (11.8-14.1); RDW-SD 46.7 fL; WBC 15.03 10^3/uL (4.4-10.8)
[2023-10-01 09:51] LABS: Absolute Lymphocyte Count 2.25 10^3/uL (1.2-3.4); Absolute Monocyte Count 1.25 10^3/uL (0.1-0.8)
[2023-10-01 09:57] LABS: ALT 16 U/L (16-63); AST 11 U/L (15-37); Albumin 2.6 g/dL (3.4-5.0); Alkaline Phosphatase 51 U/L (46-116); Anion Gap 8.4 mmol/L (3-11); BUN 8 mg/dL (7-18); Bilirubin, Total 0.5 mg/dL (0.2-1.0); CO2 26.6 mmol/L (21.0-32.0); CREATININE 0.8 mg/dL (0.70-1.30); Calcium 8.8 mg/dL (8.5-10.1); Chloride 104 mmol/L (98-107); Estimated GFR 92.29 (mL/min/1.73m2); Glucose 118 mg/dL (74-106); Potassium 3.1 mmol/L (3.5-5.1); Sodium 139 mmol/L (136-145)
[2023-10-01 22:40] LABS: CEA 2245.9 ng/mL (See Note)
== END 2023-10-01 09:23 | disposition home or self-care (01) ==
LOC: LBN 09:22
PROVIDERS: PCP Family Medicine; Visit Provider Internal Medicine Hematology & Oncology
DX: C18.9 Malignant neoplasm of colon, unspecified (principal)
CPT/HCPCS: 80053; 82378; 85025

== ENCOUNTER 2023-10-03 | Outpatient (RCR) | payer MEDICARE, SELFPAY ==
[2023-09-22] MEDS: Normal Saline Flush 10 ML SYR IVP (11:42)
[2023-10-03 11:07] VITALS: BP 122/70; PULSE 78; RESP 16; TEMP 36; O2SAT 99
[2023-10-03] MEDS: Normal Saline Flush 10 ML SYR IVP (11:21)
== END 2023-10-13 23:59 | disposition home or self-care (01) ==
LOC: INF
PROVIDERS: PCP Family Medicine; Visit Provider Internal Medicine Hematology & Oncology
DX: C18.9 Malignant neoplasm of colon, unspecified (principal); Z45.2 Encounter for adjustment and management of vascular access device
CPT/HCPCS: 96523

== ENCOUNTER → 2023-10-12 08:43 | Outpatient (BNVA) | payer MEDICARE, SELFPAY | PROVIDERS: PCP Family Medicine; Referring Provider Family Medicine; Visit Provider Nurse Practitioner Gerontology | DX: R33.8 Other retention of urine (principal) | CPT/HCPCS: 99215 ==

== ENCOUNTER → 2023-10-18 03:25 | Outpatient (CLI) | payer MEDICARE, SELFPAY ==
--- NOTE | 2023-10-18 | DI.MRI_ITS ---
Exam(s) MR ABDOMEN WO/W EXAM: MR ABDOMEN WO/W CLINICAL HISTORY: COLON CA,C18.9,MASS BOTH ADRENAL GLANDS,E27.8,? METS TECHNIQUE: Multiplanar multisequence MRI was performed with both pre and post contrast infused seque nces. Contrast injected sequences were performed following IV injection of 15 cc of Dotarem. COMPARISON: CT CT ABDOMEN PELVIS WO from 08/24/[address] ABDOMEN PELVIS WO/W from 09/22/[address] LUMBAR SPINE W from 09/22/[address] ABDOMEN PELVIS W from 09/22/2023 MR MR LUMBAR SPINE WO/W from 09/23/2023 FINDINGS: VISUALIZED LUNG BASES: No pleural effusions evident. There is no ascites evident. LIVER: Normal size. No significant focal hepatic lesions evident. BILIARY: There is no obvious gallbladder pathology. The CBD is not dilated. PANCREAS: There is no evidence of pancreatic mass nor dilatation of the pancreatic duct. SPLEEN: Spleen is not enlarged and there are no intrasplenic lesions. ADRENALS: Right adrenal mass measures 2.6 cm AP by 1.3 cm wide by 1 cm cephalocaudal. It exhibits on ly minimal signal dropout on out of phase sequence when compared to in phase sequence. In the opposi te-left adrenal gland the nodule in the lateral limb is too small to characterize. KIDNEYS: No solid renal masses. No hydronephrosis.Benign cyst in the medial cortex of the right kidn ey noted, seen on prior CT scans. This measures 2 x 1.8 cm. ABDOMINAL AORTA: Not enlarged and there is no significant para-aortic adenopathy. ANTERIOR ABDOMINAL WALL/GI: There is no evidence of significant anterior abdominal wall hernia in the field of view of this study.Is no evidence of obvious bowel obstruction. OSSEOUS: No significant osseous lesions evident in the lumbar vertebrae. Please note that recent CT scan revealed the large left pelvic mass exhibiting lytic involvement of the lower sacrum. This is b eyond the field of view of this MRI study. In the lower most aspect of the field of view the previously described large malignant-appearing mass in the left side of the pelvis and extending through the pelvis into the left-sided gluteal musculat ure is again noted. IMPRESSION: Although there is mild signal dropout on out of phase imaging in the right adrenal gland, I am hesit ant to call this an adenoma given that when reviewing the recent CT scans this right adrenal nodule h as decreased in size from 3.7 cm AP x 2.7 cm wide x 2.8 cm cephalocaudal (measurements on CT scan 08/2023)down to present measurements of 2.2 cm AP x 1.3 cm wide x 1 cm cephalocaudal. This may imply that this has responded to any interval treatment which would imply that it may be metastatic, as op posed to an adrenal adenoma. In addition, the nodule in the left adrenal gland has also decreased in size, also does somewhat concerning. There are no lesions in the liver and no other significant findings in the upper abdomen. Large ominous malignant-appearing mass in the pelvis again noted as described above. DATA REPOSITORY:
[2023-10-18] MEDS: Normal Saline - Diluent 50 ML VIAL 25 ML IJ (09:32)
[2023-10-18] MEDS: Gadoterate meglumine 20 ML VIAL 15 ML IVP (09:33)
== END ==
PROVIDERS: PCP Family Medicine; Visit Provider Nurse Practitioner Family
DX: C18.9 Malignant neoplasm of colon, unspecified (principal); E27.8 Other specified disorders of adrenal gland
CPT/HCPCS: 74183; 96523

== ENCOUNTER 2023-10-18 09:00 | Outpatient (RCR) | payer MEDICARE, SELFPAY ==
[2023-10-14 00:30] VITALS: BP 122/70; PULSE 78; RESP 16; TEMP 36
[2023-10-15 09:56] LABS: Abs Immature Grans 0.01 10^3/uL (0.0-0.06); Absolute Basophil Count 0.03 10^3/uL (0.0-0.2); Absolute Eosinophil Count 0.07 10^3/uL (0.0-0.7); Absolute Lymphocyte Count 1.55 10^3/uL (1.2-3.4); Absolute Monocyte Count 0.87 10^3/uL (0.1-0.8); Basophils % 0.7; Eosinophils % 1.7; HCT 35.7 % (40.0-50.0); HGB 11.7 g/dL (13.5-17.5); Immature Grans % 0.2; Lymphocytes % 37.5; MCH 30.8 pg (27.0-33.0); MCHC 32.8 % (32.0-36.0); MCV 94 fL (80-95); Monocytes % 21.1; Neutrophils % 38.8; Platelet Count 318 10^3/uL (130-400); RDW 14.3 % (11.8-14.1); RDW-SD 48.6 fL; WBC 4.13 10^3/uL (4.4-10.8)
[2023-10-15 10:14] LABS: ALT 29 U/L (16-63); AST 21 U/L (15-37); Albumin 2.9 g/dL (3.4-5.0); Alkaline Phosphatase 70 U/L (46-116); Anion Gap 13.9 mmol/L (3-11); BUN 13 mg/dL (7-18); CO2 24.1 mmol/L (21.0-32.0); CREATININE 0.8 mg/dL (0.70-1.30); Calcium 9.3 mg/dL (8.5-10.1); Chloride 99 mmol/L (98-107); Estimated GFR 92.29 (mL/min/1.73m2); Glucose 115 mg/dL (74-106); Potassium 4.5 mmol/L (3.5-5.1); Sodium 137 mmol/L (136-145); Total Protein 6.9 g/dL (6.4-8.2)
[2023-10-17 12:18] VITALS: BP 118/74; PULSE 82; RESP 18; TEMP 35.8; O2SAT 99
[2023-10-17] MEDS: Normal Saline Flush 10 ML SYR IVP ×2 (12:30→12:38)
[2023-10-18] MEDS: Normal Saline Flush 10 ML SYR IVP (09:02)
== END 2023-11-11 23:59 | disposition home or self-care (01) ==
LOC: INF 09:00
PROVIDERS: PCP Family Medicine; Visit Provider Internal Medicine Hematology & Oncology
DX: C18.9 Malignant neoplasm of colon, unspecified (principal); D64.9 Anemia, unspecified; C20 Malignant neoplasm of rectum
CPT/HCPCS: 36591; 80053; 96523; 82378; 85025

== ENCOUNTER → 2023-10-20 09:54 | Outpatient (BNVA) | payer MEDICARE, SELFPAY | PROVIDERS: PCP Family Medicine; Referring Provider Family Medicine; Visit Provider Nurse Practitioner Gerontology | DX: Z46.6 Encounter for fitting and adjustment of urinary device (principal); R33.8 Other retention of urine | CPT/HCPCS: 51702 ==

== ENCOUNTER 2023-10-25 11:31 | Inpatient (IN) | payer MEDICARE, SELFPAY ==
[2023-10-25] VITALS (132 sets, daily range): BP systolic 82–164; BP diastolic 39–77; PULSE 68–129; RESP 12–29; TEMP 36.1–37.1; O2SAT 89–100
--- NOTE | 2023-10-25 11:15 | RT.EKG_ITS ---
APPROVED REPORT Exam: Resting ECG Reason for Exam: high heart rate Patient Location: E HR:130 bpm ECG Measurements Heart Rate 130 AXIS CA 147 P 63 QRSd 89 QRS -26 QT 315 T 81 QTc 460 Conclusion Sinus tachycardia...rate> 99 Atrial premature complex...SV complex w/ short R-R interval Nonspecific T abnrm, anterolateral leads...T <-0.10mV, I aVL V2-V6
[2023-10-25 11:58] LABS: Absolute Eosinophil Count 0.01 10^3/uL (0.0-0.7); Absolute Monocyte Count 0.23 10^3/uL (0.1-0.8); HCT 28.8 % (40.0-50.0); HGB 9.6 g/dL (13.5-17.5); MCHC 33.3 % (32.0-36.0); MCV 90 fL (80-95); Platelet Count 181 10^3/uL (130-400); RDW 13.7 % (11.8-14.1); RDW-SD 45.2 fL
[2023-10-25 12:02] LABS: Lactate 3.8 MMOL/l (0.9-1.7)
--- NOTE | 2023-10-25 12:15 | W.ED.GENAD ---
HPI General Mode of arrival: EMS. Date/Time Provider Initiated Documentation: 10/25/23 12:00. Limitations to Documentation: no limitations. Information obtained by: patient. HPI Narrative: 77-year-old male with history of rectal CA w/ mets to the sacrum, and probable adrenal mets, urinary retention with indwelling Reeves catheter, presents with chief complaint of generally not feeling well. Patient notes fever, generalized weakness and lethargy over the past few days. He states she has had a cough for the past month. Patient recently finished chemo 1 week ago. Patient denies abdominal pain. He does note skin breakdown and redness of his buttocks. Related Data Home Medications Medication Instructions Recorded Confirmed cyanocobalamin (vitamin B-12) 1,000 mcg PO DAILY 07/13/19 10/25/23 1,000 mcg tablet (Vitamin B-12) cholecalciferol (vitamin D3) 10 10 mcg PO DAILY 05/25/23 10/25/23 mcg (400 unit) tablet folic acid 1 mg tablet 1 mg PO DAILY 05/25/23 10/25/23 latanoprost 0.005 % eye drops 1 drp ophthalmic (eye) DAILY 05/25/23 10/25/23 timolol maleate 0.25 % eye drops 1 drp ophthalmic (eye) DAILY 05/25/23 10/25/23 midodrine 2.5 mg tablet 5 mg (2 x 2.5 mg) PO TID 120 days 08/31/23 10/25/23 #720 tabs tramadol 50 mg tablet 50 mg PO Q4H PRN pain (scale score 09/21/23 10/25/23 7-10) #10 tabs hydrocortisone 10 mg tablet See Rx Instructions .Route 09/25/23 10/25/23 .COMPLEX #90 tabs potassium chloride 20 mEq 20 meq PO BID 10/12/23 10/25/23 tablet,extended release prednisone 10 mg tablet 10 mg PO BID 10/12/23 10/25/23 prochlorperazine maleate 10 mg 10 mg PO Q6H PRN 10/25/23 10/25/23 tablet Previous Rx's Medication Instructions Recorded midodrine 2.5 mg tablet 5 mg (2 x 2.5 mg) PO TID 120 days 08/31/23 #720 tabs tramadol 50 mg tablet 50 mg PO Q4H PRN pain (scale score 09/21/23 7-10) #10 tabs hydrocortisone 10 mg tablet See Rx Instructions .Route 09/25/23 .COMPLEX #90 tabs Allergies Allergy/AdvReac Type Severity Reaction Status Date / Time Penicillins AdvReac Unknown Hives Verified 10/25/23 11:38 General Stated Complaint: Fever ADAMA: 2 Review of Systems All systems reviewed & are unremarkable except as noted in HPI and below Constitutional Constitutional: Reports fever(s), Reports lethargy and Reports weakness Cardiovascular Cardiovascular: Denies dyspnea Respiratory Respiratory: Reports as per HPI, Reports cough and Denies dyspnea Gastrointestinal Gastrointestinal: Denies abdominal pain Neurologic Neurologic: Reports weakness Exam Const General: cooperative and no acute distress HENMT Mouth: moist mucous membranes Eyes Conjunctivae: normal conjunctivae Sclera: normal sclerae Neck Neck: trachea midline and supple Resp Auscultation: clear to auscultation bilaterally, no rales, no rhonchi and no wheezes Cardio Rate: tachycardic Rhythm: regular rhythm GI Palpation: soft, not firm, no guarding, no masses, not rigid and nontender Skin Rashes: rashes noted (Erythema of the buttocks bilaterally suspect early decubitus skin breakdown) Neuro General: patient alert, patient awake, patient oriented x3 and tone normal Extrem General: no edema Psych Appearance: grossly normal Mental Status: mental status grossly normal Speech and Movement: speech and movement normal Course Vital Signs Vital signs: Vital Signs Temperature 37.1 C 10/25/23 11:30 Pulse 128 H 10/25/23 11:30 Respiratory Rate 22 10/25/23 11:30 Blood Pressure 124/56 L 10/25/23 11:30 Pulse Oximetry 92 10/25/23 11:30 Temperature 37.1 C 10/25/23 11:30 Temperature Source Oral 10/25/23 11:30 Pulse 128 H 10/25/23 11:30 Respiratory Rate 22 10/25/23 11:30 Respiratory Effort Normal, Non-Labored 10/25/23 11:40 Blood Pressure 124/56 L 10/25/23 11:30 Blood Pressure Position Sitting 10/25/23 11:30 Pulse Oximetry 92 10/25/23 11:30 Oxygen Delivery Method Room Air 10/25/23 11:30 Oxygen Flow Rate 0 10/25/23 11:30 Pain Level 0 10/25/23 11:30 Lab/Test Results Lab/Test Results: 10/25/23 11:48 Blood Blood Culture - Pending 10/25/23 11:50 Blood Blood Culture - Pending Laboratory Tests Range/Units 10/25/23 11:48 VBG Lactate (0.9-1.7) MMOL/l 3.8 H* Medical Decision Making 1219??77-year-old male with multiple medical problems including rectal cancer with mets to the sacrum, on chemotherapy, urinary retention with indwelling Reeves catheter, here with fever, generally not feeling well. Patient is tachycardic and normotensive on arrival. I will give IV fluid bolus and plan to reassess. Concern for potential neutropenic fever versus COVID versus pneumonia versus UTI versus less likely intra-abdominal infectious process. Concern for sepsis. Screening EKG was reviewed and interpreted by me: Please report, sinus tachycardia 130 bpm, left axis deviation, nonspecific T wave abnormality noted in anterior lateral leads. 1255 -- Initial labs reviewed and patient does have neutropenia. I will initiate treatment for neutropenic fever including cefepime 2 g IV and vancomycin 1.5 g IV. 1314 -- chest x-ray was interpreted by radiology: No acute abnormality. Exchanging Reeves catheter and will check UA on new catheter specimen. Patient is now hypotensive receiving IV fluid bolus. 2 IVs have been established. --Lactate is elevated 3.8. 1415 --patient reassessed after 2 L IV fluid and continues to be hypotensive 83/50, MAP of 59. Heart rate improved to now mid 90s. I will initiate treatment with norepinephrine infusion. 1515 --urinalysis reviewed and consistent with UTI. Patient reassessed and blood pressure significantly improved with a MAP of 80 on Levophed 8 mcg/min. Patient is mentating well and has good urine output. He states that he is feeling much better. I spoke with the hospitalist on-call, Dr. Mckenzie, discussed ED presentation and course, he will admit the patient to the ICU. Lab Data Lab results reviewed: Yes I reviewed the patient's lab results. Labs: 10/25/23 11:48 Blood Blood Culture - Pending 10/25/23 11:50 Blood Blood Culture - Pending Laboratory Tests Range/Units 10/25/23 10/25/23 10/25/23 11:48 12:06 13:50 WBC (4.4-10.8) 10^3/uL 0.76 L* RBC (4.36-5.78) 10^6/uL 3.20 L Hgb (13.5-17.5) g/dL 9.6 L Hct (40.0-50.0) % 28.8 L MCV (80-95) fL 90 MCH (27.0-33.0) pg 30.0 MCHC (32.0-36.0) % 33.3 RDW (11.8-14.1) % 13.7 Plt Count (130-400) 10^3/uL 181 MPV (8.0-11.0) fL 9.9 Immature Gran % 0.0 Neutrophils % 10.0 Lymphocytes % 57.0 Atypical Lymphs % 2 Monocytes % 30.0 Eosinophils % 1.0 Basophils % 0.0 Nucleated RBC % (0.0-0.3) % 0.0 Absolute Neutrophils (1.2-6.7) 10^3/uL 0.08 L* Absolute Lymphocytes (1.2-3.4) 10^3/uL 0.45 L Absolute Monocytes (0.1-0.8) 10^3/uL 0.23 Absolute Eosinophils (0.0-0.7) 10^3/uL 0.01 Absolute Basophils (0.0-0.2) 10^3/uL 0.00 RBC Morphology Normal VBG Lactate (0.9-1.7) MMOL/l 3.8 H* Sodium (136-145) mmol/L 127 L Potassium (3.5-5.1) mmol/L 3.7 Chloride (98-107) mmol/L 93 L Carbon Dioxide (21.0-32.0) mmol/L 19.2 L Anion Gap (3-11) mmol/L 14.8 H BUN (7-18) mg/dL 15 Creatinine (0.70-1.30) mg/dL 1.1 Est GFR (CKD-EPI 2020) (mL/min/1.73m2) 70.01 Glucose (74-106) mg/dL 82 Calcium (8.5-10.1) mg/dL 8.2 L Magnesium (1.8-2.4) mg/dL 1.8 Total Bilirubin (0.2-1.0) mg/dL 1.6 H AST (15-37) U/L 32 ALT (16-63) U/L 33 Alkaline Phosphatase (46-116) U/L 93 Total Protein (6.4-8.2) g/dL 6.0 L Albumin (3.4-5.0) g/dL 2.1 L Urine Color (Yellow) Yellow Urine Clarity (Clear) Clear Urine pH (5-8) 6.0 Ur Specific [place] (1.005-1.025) 1.015 Urine Protein (Negative) mg/dL 100 H Urine Ketones (Negative) mg/dL Negative Urine Blood (Negative) Large H Urine Nitrite (Negative) Negative Urine Bilirubin (Negative) Negative Urine Urobilinogen (Up to 0.2) mg/dL 1.0 H Ur Leukocyte Esterase (Negative) Moderate H Urine Glucose (Negative) mg/dL Negative COVID-19 Source Nasopharynx SARS-CoV-2 (PCR) (Negative) Negative Influenza Type A (PCR) (Negative) Negative Influenza Type B (PCR) (Negative) Negative RSV (PCR) (Negative) Negative Quality:SDOH Health Related Social Needs: Health related social needs details no problem on the above questions. Critical Care Time Critical Care Time Critical Care Time: Yes Total Critical Care Time: 55 Attestation: I spent greater than 55 minutes addressing this patient's immediate life threats. Please see MDM section of note. This time was spent engaged in work directly related to the patient's care, exclusive of separate procedures, and failure to initiate these interventions would have likely resulted in clinically significant or life threatening deterioration in the patient's condition. PFSH All Active Problems (Updated 10/25/23 @ 15:17 by Casper Cali MD) Acute UTI (Acute) Hyponatremia (Acute) Anemia (Chronic) Sepsis (Acute) Neutropenic fever (Acute) Acute urinary retention (Acute) Encounter for care related to vascular access port (Acute) Diverticula of colon (Acute) Anal stricture (Acute) Fecal incontinence (Acute) Rectal cancer metastatic to bone (Chronic) Left hip pain (Acute) Medical History Alcoholism Hx of adenomatous polyp of colon Macrocytosis Erectile dysfunction Megaloblastic anemia Elevated blood pressure reading Glaucoma Hearing loss Loss of balance Mild cognitive impairment, so stated Alcohol abuse Tremor Prediabetes Basal cell carcinoma Skin cancer, basal cell Surgical History Port-A-Cath in place (~09/2023) History of tonsillectomy History of colon resection 14cm removed, per pt. -BR History of ankle surgery ankle pinning 50 yrs ago History of colonoscopy Family History Father Cancer Heart disease Social History Smoking/Tobacco Use Status: Former Tobacco Use Quit Date: 09/13/99 Smoking risk assessment performed?: Yes Alcohol Intake: former Drug use: Never Substance use type: does not use Details: PER PT- QUIT DRINKING 2-3WEEKS AGO Housing: house Do you feel safe at home: Yes Do you feel safe in your relationship?: Yes Discharge Plan Disposition Patient Disposition: Admit to [facility] Condition: Critical Discharge Details Clinical Impression: Neutropenic fever, Sepsis, Anemia, Hyponatremia, Acute UTI Primary Care Provider: Genevieve Peterson ED Provider: Casper Cali Home Meds and New Rx's Prescriptions: No Action prednisone 10 mg tablet 10 mg PO BID Patient Comments: pt taking 20 mg in AM, 10 mg PM. potassium chloride 20 mEq tablet extended release 20 meq PO BID latanoprost 0.005 % drops 1 drp ophthalmic (eye) DAILY timolol maleate 0.25 % drops 1 drp ophthalmic (eye) DAILY Rx Instructions: both eyes folic acid 1 mg tablet 1 mg PO DAILY cholecalciferol (vitamin D3) 10 mcg (400 unit) tablet 10 mcg PO DAILY cyanocobalamin (vitamin B-12) [Vitamin B-12] 1,000 mcg Tablet 1,000 mcg PO DAILY midodrine 2.5 mg Tablet 5 mg PO TID 120 Days Qty: 720 0RF tramadol 50 mg tablet 50 mg PO Q4H MDD 6 PRN (Reason: pain (scale score 7-10)) Qty: 10 0RF Rx Instructions: will cause constipation hydrocortisone 10 mg tablet See Rx Instructions .ROUTE .COMPLEX Qty: 90 1RF Rx Instructions: 20 mg po qam and 10 mg q 4 pm prochlorperazine maleate 10 mg tablet 10 mg PO Q6H PRN Patient Comments: TAKE ONE TABLET BY MOUTH EVERY 6 HOURS NEEDED FOR NAUSEA
[2023-10-25 12:25] LABS: ALT 33 U/L (16-63); AST 32 U/L (15-37); Albumin 2.1 g/dL (3.4-5.0); Alkaline Phosphatase 93 U/L (46-116); Anion Gap 14.8 mmol/L (3-11); BUN 15 mg/dL (7-18); Bilirubin, Total 1.6 mg/dL (0.2-1.0); CO2 19.2 mmol/L (21.0-32.0); CREATININE 1.1 mg/dL (0.70-1.30); Calcium 8.2 mg/dL (8.5-10.1); Chloride 93 mmol/L (98-107); Estimated GFR 70.01 (mL/min/1.73m2); Glucose 82 mg/dL (74-106); Magnesium 1.8 mg/dL (1.8-2.4); Potassium 3.7 mmol/L (3.5-5.1); Sodium 127 mmol/L (136-145)
[2023-10-25 12:40] LABS: Absolute Lymphocyte Count 0.45 10^3/uL (1.2-3.4); Atypical Lymphocytes % 2
[2023-10-25 12:41] LABS: Absolute Neutrophil Count 0.08 10^3/uL (1.2-6.7)
--- NOTE | 2023-10-25 12:41 | DI.RAD_ITS ---
Exam(s) XR CHEST 2V PA LATERAL EXAM: XR CHEST 2V PA LATERAL CLINICAL HISTORY: fever TECHNIQUE: 2D digital imaging was performed. COMPARISON: CT CT CHEST W from 08/24/2023 CR XR PORTABLE CHEST AP POST LINE from 09/21/2023 CR,XR XR PORTABLE CHEST AP from 09/22/2023 FINDINGS: Port again noted. HEART: Normal size. Aorta: Not dilated. PULMONARY VASCULATURE: Normal. LUNGS: Clear. PLEURAL SPACE: No pleural effusion or pneumothorax. BONE:Unremarkable for age. A prominent spurs again noted off the inferior aspect of the 1st rib. Soft tissues: Unremarkable. IMPRESSION: No acute abnormality. DATA REPOSITORY: RADIATION DOSE DELIVERED:
[2023-10-25 12:42] LABS: Diff Comment Manual Differential; MPV 9.9 fL (8.0-11.0); RBC Morphology Normal; WBC 0.76 10^3/uL (4.4-10.8)
[2023-10-25 12:56] LABS: COVID-19 PCR Negative (Negative); Influenza A PCR Negative (Negative); Influenza B PCR Negative (Negative); RSV PCR Negative (Negative)
[2023-10-25 12:58] LABS: Source Nasopharynx
[2023-10-25] MEDS: Lactated Ringers 1,000 ML 1000 ML IV ×2 (13:03→13:46)
[2023-10-25] MEDS: CEFEPIME 2 GM in Normal Saline 100 ML IVPB ×2 (13:08→23:57)
[2023-10-25] MEDS: VANCOMYCIN/WATER (PEG) 1.5 GM/300 ML BAG IVPB (13:48)
[2023-10-25 13:58] LABS: Bilirubin Negative (Negative); Blood Large (Negative); Clarity Clear (Clear); Glucose Negative (Negative); Ketones Negative (Negative); Leukocyte Esterase Moderate (Negative); Nitrite Negative (Negative); Specific Gravity 1.015 (1.005-1.025)
[2023-10-25] MEDS: Norepinephrine in D5W 8 MG/250 ML BAG 9.375 MG IV (14:34)
[2023-10-25 14:35] LABS: Bacteria Moderate HPF (Negative); Epithelial Cells Moderate HPF (Negative); Other Cells Rare Renal (Negative); RBC 20-50 HPF (0-2); WBC >50 HPF (0-5)
[2023-10-25 14:36] LABS: C & S Indicated? No/Sq. Contamination; Mucus Trace (Negative)
[2023-10-25 15:15] LABS: Lactate 4.9 MMOL/l (0.9-1.7)
--- NOTE | 2023-10-25 21:35 | W.PM.PROGNOT ---
Date of Service Date of service: 10/25/23 Time of Service: 21:35 Objective Last Vital Signs Temp 36.1 C L 10/25/23 20:31 Pulse 96 H 10/25/23 20:31 Resp 18 10/25/23 20:31 BP 111/77 10/25/23 20:31 Pulse Ox 99 10/25/23 20:31 Laboratory Results - last 24 hr 10/25/23 10/25/23 10/25/23 11:48 12:06 13:50 WBC 0.76 L* RBC 3.20 L Hgb 9.6 L Hct 28.8 L MCV 90 MCH 30.0 MCHC 33.3 RDW 13.7 Plt Count 181 MPV 9.9 Immature Gran % 0.0 Neutrophils % 10.0 Lymphocytes % 57.0 Atypical Lymphs % 2 Monocytes % 30.0 Eosinophils % 1.0 Basophils % 0.0 Nucleated RBC % 0.0 Absolute Neutrophils 0.08 L* Absolute Lymphocytes 0.45 L Absolute Monocytes 0.23 Absolute Eosinophils 0.01 Absolute Basophils 0.00 RBC Morphology Normal VBG Lactate 3.8 H* Sodium 127 L Potassium 3.7 Chloride 93 L Carbon Dioxide 19.2 L Anion Gap 14.8 H BUN 15 Creatinine 1.1 Est GFR (CKD-EPI 2020) 70.01 Glucose 82 Calcium 8.2 L Magnesium 1.8 Total Bilirubin 1.6 H AST 32 ALT 33 Alkaline Phosphatase 93 Total Protein 6.0 L Albumin 2.1 L Urine Color Yellow Urine Clarity Clear Urine pH 6.0 Ur Specific [place] 1.015 Urine Protein 100 H Urine Ketones Negative Urine Blood Large H Urine Nitrite Negative Urine Bilirubin Negative Urine Urobilinogen 1.0 H Ur Leukocyte Esterase Moderate H Urine RBC 20-50 H Urine WBC >50 H Ur Epithelial Cells Moderate Urine Crystals Not Applicable Urine Bacteria Moderate Urine Mucus Trace Urine Other Rare Renal Ur Culture Indicated? No/Sq. Contamination Urine Glucose Negative COVID-19 Source Nasopharynx SARS-CoV-2 (PCR) Negative Influenza Type A (PCR) Negative Influenza Type B (PCR) Negative RSV (PCR) Negative 10/25/23 14:58 WBC RBC Hgb Hct MCV MCH MCHC RDW Plt Count MPV Immature Gran % Neutrophils % Lymphocytes % Atypical Lymphs % Monocytes % Eosinophils % Basophils % Nucleated RBC % Absolute Neutrophils Absolute Lymphocytes Absolute Monocytes Absolute Eosinophils Absolute Basophils RBC Morphology VBG Lactate 4.9 H* Sodium Potassium Chloride Carbon Dioxide Anion Gap BUN Creatinine Est GFR (CKD-EPI 2020) Glucose Calcium Magnesium Total Bilirubin AST ALT Alkaline Phosphatase Total Protein Albumin Urine Color Urine Clarity Urine pH Ur Specific [place] Urine Protein Urine Ketones Urine Blood Urine Nitrite Urine Bilirubin Urine Urobilinogen Ur Leukocyte Esterase Urine RBC Urine WBC Ur Epithelial Cells Urine Crystals Urine Bacteria Urine Mucus Urine Other Ur Culture Indicated? Urine Glucose COVID-19 Source SARS-CoV-2 (PCR) Influenza Type A (PCR) Influenza Type B (PCR) RSV (PCR)
--- NOTE | 2023-10-25 21:46 | HPE_ITS ---
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 Patient now on norepinephrine drip with stabilization of his blood pressures. Blood and urine cultures are pending at this time patient remains on cefepime and vancomycin which was initiated in the emergency department. Patient be monitored in the intensive care unit until he is able to be adequately weaned from the norepinephrine. He will be placed on stress dose hydrocortisone along with PPI GI prophylaxis. We will contact his oncologist tomorrow morning and find out what his chemotherapy regimen has been as well as what neutropenic rescue therapy has been initiated. 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 He was resuscitated with IV fluids Reeves catheter was placed blood cultures came back no growth. His HALEY resolved with IV fluids and stabilization of his blood pressure. Patient was treated with stress dose hydrocortisone and put on antibiotics including ceftriaxone and Flagyl. He was discharged home on adrenal insufficiency dosing of hydrocortisone and was treated for 7 more days with Flagyl. Patient is now under the care of Dr. Toño Field and has been receiving chemotherapy for his rectal carcinoma. He has a chronic indwelling Reeves now. He was found to have neutropenic sepsis with hypotension that was refractory to a couple liters of IV fluid necessitating initiation of norepinephrine drip. Blood and urine cultures have been sent as Reeves catheter has been replaced. Patient was started on cefepime and vancomycin through the emergency department. His urinalysis is suspicious for UTI with a large amount of blood positive leukocyte Estrace, moderate degree with large amount of white cells and moderate bacteria however he does have moderate epithelial cells therefore the lab rejected the urine specimen. We will send a fresh urine specimen from his Reeves catheter. His CBC shows neutropenia with an absolute neutrophil count of 80 total white blood cell count of 760 with a moderate degree of anemia hemoglobin 9.6 g but normal platelet count 181,000. Patient states his last chemotherapy treatment was on Wednesday which she gets at [facility] supervised by Dr. Toño Field. Patient also states that he he wears a pump for 48 hours and sounds like it may be a form of Neupogen. We will confirm with Dr. Field tomorrow his current chemotherapy regimen and confirm what his neutropenia rescue therapy has been. Chest x-ray showed no acute pulmonary abnormalities and has had no symptoms of cough or sputum production. His main symptoms have been fatigue and generalized weakness and recent chills. 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 -BR History of ankle surgery ankle pinning 50 yrs ago History of colonoscopy Family History Father Cancer Heart disease Social History Smoking/Tobacco Use Status: Former Tobacco Use Quit Date: 09/13/99 Smoking risk assessment performed?: Yes Alcohol Intake: former Drug use: Never Substance use type: does not use Details: PER PT- QUIT DRINKING 2-3WEEKS AGO Housing: house Do you feel safe at home: Yes Do you feel safe in your relationship?: Yes Meds Allergies and Home Medications Allergies Allergy/AdvReac Type Severity Reaction Status Date / Time Penicillins AdvReac Unknown Hives Verified 10/25/23 11:38 Home Medications Medication Instructions Recorded Confirmed Type cyanocobalamin (vitamin B-12) 1,000 mcg PO DAILY 07/13/19 10/25/23 History 1,000 mcg tablet (Vitamin B-12) cholecalciferol (vitamin D3) 10 10 mcg PO DAILY 05/25/23 10/25/23 History mcg (400 unit) tablet folic acid 1 mg tablet 1 mg PO DAILY 05/25/23 10/25/23 History latanoprost 0.005 % eye drops 1 drp ophthalmic (eye) DAILY 05/25/23 10/25/23 History timolol maleate 0.25 % eye drops 1 drp ophthalmic (eye) DAILY 05/25/23 10/25/23 History midodrine 2.5 mg tablet 5 mg (2 x 2.5 mg) PO TID 120 days 08/31/23 10/25/23 Rx #720 tabs tramadol 50 mg tablet 50 mg PO Q4H PRN pain (scale score 09/21/23 10/25/23 Rx 7-10) #10 tabs hydrocortisone 10 mg tablet See Rx Instructions .Route 09/25/23 10/25/23 Rx .COMPLEX #90 tabs potassium chloride 20 mEq 20 meq PO BID 10/12/23 10/25/23 History tablet,extended release prednisone 10 mg tablet 10 mg PO BID 10/12/23 10/25/23 History prochlorperazine maleate 10 mg 10 mg PO Q6H PRN 10/25/23 10/25/23 History tablet Exam Narrative Exam Narrative: Elderly white male who appears alert and oriented does not appear to be in any acute distress. He is not tachypneic and not diaphoretic sitting up in bed and resting calmly. HEENT unremarkable Neck supple nontender no JVD normal carotid pulses Lungs are clear to auscultation Heart is regular rate and rhythm without murmur rub or gallop. Mediport is located in the left infra navicular space there is no erythema or induration Abdomen soft and nontender no distention or guarding Extremities without peripheral cyanosis or edema Results Labs 10/25/23 11:48 10/25/23 11:48 Labs: Laboratory Results - last 24 hr 10/25/23 10/25/23 10/25/23 11:48 12:06 13:50 WBC 0.76 L* RBC 3.20 L Hgb 9.6 L Hct 28.8 L MCV 90 MCH 30.0 MCHC 33.3 RDW 13.7 Plt Count 181 MPV 9.9 Immature Gran % 0.0 Neutrophils % 10.0 Lymphocytes % 57.0 Atypical Lymphs % 2 Monocytes % 30.0 Eosinophils % 1.0 Basophils % 0.0 Nucleated RBC % 0.0 Absolute Neutrophils 0.08 L* Absolute Lymphocytes 0.45 L Absolute Monocytes 0.23 Absolute Eosinophils 0.01 Absolute Basophils 0.00 RBC Morphology Normal VBG Lactate 3.8 H* Sodium 127 L Potassium 3.7 Chloride 93 L Carbon Dioxide 19.2 L Anion Gap 14.8 H BUN 15 Creatinine 1.1 Est GFR (CKD-EPI 2020) 70.01 Glucose 82 Calcium 8.2 L Magnesium 1.8 Total Bilirubin 1.6 H AST 32 ALT 33 Alkaline Phosphatase 93 Total Protein 6.0 L Albumin 2.1 L Urine Color Yellow Urine Clarity Clear Urine pH 6.0 Ur Specific [place] 1.015 Urine Protein 100 H Urine Ketones Negative Urine Blood Large H Urine Nitrite Negative Urine Bilirubin Negative Urine Urobilinogen 1.0 H Ur Leukocyte Esterase Moderate H Urine RBC 20-50 H Urine WBC >50 H Ur Epithelial Cells Moderate Urine Crystals Not Applicable Urine Bacteria Moderate Urine Mucus Trace Urine Other Rare Renal Ur Culture Indicated? No/Sq. Contamination Urine Glucose Negative COVID-19 Source Nasopharynx SARS-CoV-2 (PCR) Negative Influenza Type A (PCR) Negative Influenza Type B (PCR) Negative RSV (PCR) Negative 10/25/23 14:58 WBC RBC Hgb Hct MCV MCH MCHC RDW Plt Count MPV Immature Gran % Neutrophils % Lymphocytes % Atypical Lymphs % Monocytes % Eosinophils % Basophils % Nucleated RBC % Absolute Neutrophils Absolute Lymphocytes Absolute Monocytes Absolute Eosinophils Absolute Basophils RBC Morphology VBG Lactate 4.9 H* Sodium Potassium Chloride Carbon Dioxide Anion Gap BUN Creatinine Est GFR (CKD-EPI 2020) Glucose Calcium Magnesium Total Bilirubin AST ALT Alkaline Phosphatase Total Protein Albumin Urine Color Urine Clarity Urine pH Ur Specific [place] Urine Protein Urine Ketones Urine Blood Urine Nitrite Urine Bilirubin Urine Urobilinogen Ur Leukocyte Esterase Urine RBC Urine WBC Ur Epithelial Cells Urine Crystals Urine Bacteria Urine Mucus Urine Other Ur Culture Indicated? Urine Glucose COVID-19 Source SARS-CoV-2 (PCR) Influenza Type A (PCR) Influenza Type B (PCR) RSV (PCR) Last Vital Signs Temp 36.1 C L 10/25/23 20:31 Pulse 96 H 10/25/23 20:31 Resp 18 10/25/23 20:31 BP 111/77 10/25/23 20:31 Pulse Ox 99 10/25/23 20:31 Time Spent Time spent with Patient: 40-54 minutes Time was spent: preparing to see the patient(eg.review tests), ordering medications,tests, procedures, referring, communicating with other health childcare aide (Discussion with Dr. Cali), indepentently interpreting results, counseling the patient and care coordination
[2023-10-25] MEDS: Normal Saline Flush 10 ML SYR IVP (22:56)
[2023-10-25 23:01] LABS: Lab Add On Test DONE
[2023-10-25 23:08] LABS: Lactate 1.7 mmol/L (0.6-1.4)
[2023-10-25 23:43] LABS: Procalcitonin 26.6 ng/mL
[2023-10-25] MEDS: Midodrine 2.5 MG TAB 5 MG PO (23:56)
[2023-10-25] MEDS: Hydrocortisone SOD SUC. 100 MG VIAL IVP (23:57)
[2023-10-25] MEDS: Lactated Ringers 1,000 ML 150 ML IV (23:58)
[2023-10-26] VITALS (48 sets, daily range): BP systolic 83–125; BP diastolic 54–78; PULSE 64–112; RESP 11–27; TEMP 36–36.5; O2SAT 78–100
[2023-10-26] MEDS: Pantoprazole 40 MG VIAL IVP (00:56)
[2023-10-26] MEDS: Potassium Chloride 20 MEQ TABCR PO ×3 (00:56→19:32)
[2023-10-26 02:23] LABS: Vancomycin, Random 9.5 ug/mL
[2023-10-26 05:51] LABS: Lactate 1.5 mmol/L (0.6-1.4)
[2023-10-26 05:54] LABS: HCT 23.3 % (40.0-50.0); HGB 7.9 g/dL (13.5-17.5); MCH 29.8 pg (27.0-33.0); MCHC 33.9 % (32.0-36.0); MCV 88 fL (80-95); MPV 10.2 fL (8.0-11.0); Platelet Count 152 10^3/uL (130-400); RBC 2.65 10^6/uL (4.36-5.78); RDW 13.5 % (11.8-14.1); RDW-SD 42.9 fL
[2023-10-26 06:09] LABS: ALT 25 U/L (16-63); AST 20 U/L (15-37); Albumin 1.6 g/dL (3.4-5.0); Alkaline Phosphatase 70 U/L (46-116); Anion Gap 9.7 mmol/L (3-11); BUN 14 mg/dL (7-18); Bilirubin, Total 0.9 mg/dL (0.2-1.0); CO2 21.3 mmol/L (21.0-32.0); CREATININE 0.8 mg/dL (0.70-1.30); Calcium 7.9 mg/dL (8.5-10.1); Chloride 98 mmol/L (98-107); Estimated GFR 92.29 (mL/min/1.73m2); Glucose 110 mg/dL (74-106); Sodium 129 mmol/L (136-145); Total Protein 4.9 g/dL (6.4-8.2)
[2023-10-26] MEDS: Midodrine 2.5 MG TAB 5 MG PO ×3 (06:18→18:26)
[2023-10-26 06:31] LABS: Bands % 1
[2023-10-26 06:32] LABS: Absolute Basophil Count 0.01 10^3/uL (0.0-0.2); Absolute Eosinophil Count 0.01 10^3/uL (0.0-0.7)
[2023-10-26 06:34] LABS: Absolute Neutrophil Count 0.25 10^3/uL (1.2-6.7); Diff Comment Manual Differential; RBC Morphology Normal; WBC 0.79 10^3/uL (4.4-10.8)
[2023-10-26] MEDS: Lactated Ringers 1,000 ML 150 ML IV (06:50)
[2023-10-26 08:09] LABS: Absolute Lymphocyte Count 0.45 10^3/uL (1.2-3.4); Absolute Monocyte Count 0.07 10^3/uL (0.1-0.8)
--- NOTE | 2023-10-26 08:15 | PDOC.CMIN ---
Date of service: 10/26/23 Time of Service: 08:15 Care Management Initial Assmt Initial Assessment REASON FOR HOSPITALIZATION:: sepsis PREVIOUS FUNCTIONAL STATUS/SOCIAL/FAMILY SUPPORTS:: Harrison lives in a single family home in [place] with his Sania. They have two children; their daughter Yamileth is an operating room nurse at [employer] and they have a son who lives locally. Harrison shared that they are a close and supportive family. 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 He does not use a cane or a walker for ambulatory assistance and he does not receive any community services. CURRENT FUNCTIONAL STATUS:: Harrison was sitting up in bed when CM met with him. He engaged well with CM, known to him from previous hospital stays. Harrison shared that he just received his second round of chemo and got sick. He is scheduled to receive chemotherapy every 2 weeks for a few months and then his progress will be re-evaluated. He informed CM that overall, he has been feeling pretty good. He now has an an indwelling villarreal catheter that he says is not uncomfortable . CM noted the fact that Harrison did not have a code status identified. He reported that his daughter knows what he wants and how he feels about things and spoke with the provider about it this morning. Harrison now is listed as a full code, which is consistent with his previous designation. ADVANCE DIRECTIVES:: none Has patient been provided with info about the portal/API?: Yes Did the patient sign up for the portal?: No CODE STATUS:: Full Code INSURANCE COVERAGE / FINANCIAL ISSUES:: Medicare [employer] Senior Supplement CURRENT HOME/COMMUNITY SERVICES/EQUIPMENT:: none currently PRIMARY CARE PHYSICIAN:: Genevieve Peterson POTENTIAL DISCHARGE NEEDS:: follow up with PCP and Oncology PATIENT/FAMILY EDUCATION NEEDS:: Review of discharge instructions, expectations, medications, limitations, follow up plan, discuss Ask Me Three TRANSPORTATION:: via private vehicle with family PLAN:: Anticipate Harrison will be discharged home with no new services when medically cleared by provider. He will follow up with his community providers and plan of care and transport with family. CM will follow and continue to assess for discharge needs. 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 -BR History of ankle surgery ankle pinning 50 yrs ago History of colonoscopy Family History Father Cancer Heart disease Social History Smoking/Tobacco Use Status: Former Tobacco Use Quit Date: 09/13/99 Smoking risk assessment performed?: Yes Alcohol Intake: former Drug use: Never Substance use type: does not use Details: PER PT- QUIT DRINKING 2-3WEEKS AGO Housing: house Do you feel safe at home: Yes Do you feel safe in your relationship?: Yes SDOH(Care Management) Screening Will the Patient Participate in the Screening?: Unable to obtain Do you worry about having a steady place to live?: no Problems where you live: no known problems In the past 12 months, have you had to go without electric, gas, oil or water in your home?: no Have you or anyone in your house had to go without enough food to eat?: no Has lack of transportation kept you from medical appointments or from doing things needed for daily living?: no Has anyone in your support network made you feel unsafe for any reason?: no
[2023-10-26] MEDS: CEFEPIME 2 GM in Normal Saline 100 ML IVPB ×3 (08:37→23:02)
--- NOTE | 2023-10-26 08:40 | W.PM.PROGNOT ---
Date of Service Date of service: 10/26/23 Time of Service: 08:40 Assessment and Plan Assessment and plan (1) Sepsis: Status: Acute Assessment and plan: 77-year-old male with rectal carcinoma with metastasis to his sacrum and questionable adrenal metastasis presents with neutropenic sepsis failed to adequately respond to IV fluid boluses. Patient responded to stress dose hydrocortisone and norepinephrine. He is now off the N.E. We will continue stress dose hydrocortisone for 48 to 72 h then resume his home dose of prednisone. 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 this was 13.8 cm villous adenoma. He was followed w/ serial colonoscopy until he presented to [facility] 08/2023 w/ GNR bacteremia/sepsis and CT evaluation showed large pelvic mass arising from the rectum and extending through the sciatic notch w/ erosion of the left pelvis and causing displacement of the rectosigmoid colon and urinary bladder. His biopsy from 08/30/23 demonstrates adenocarcinoma favoring colorectal origin (CK20+/CK7-), IHC for MMR proteins shows intact staining. Thus he was started on FOLFOX. He had his C2 of FOLFOX on 10/15/23 and C3 is to be done in 2 weeks. In the interim he developed GNR bactermia and neutropenic sepsis. (5) Acute on chronic urinary retention: Status: Acute Assessment and plan: continue chronic indwelling villarreal which was replaced while in the E.D. Subjective Subjective Interval history since last seen: Patient is feeling better today. he has been off the N.E. drip since yesterday evening. He denies any abdominal or flank pain. No dyspnea or CP. I told him that I want a renal US to be sure no evidence for stones or pyelonephritis. HIs blood cultures are + for GNR. He asked me how we can prevent this. I told him that from he has told me that it sounds like Dr. Field has him on home infusion of Neulasta. He already gets his villarreal catheter changed monthly and it was changed while in the E.D. Exam Narrative Exam Narrative: Mr. Titus is sitting up in bed, he has not had breakfast yet but overall he says that he feels much better. He denies any abdominal pain, dyspnea or CP or dizziness Heart: RRR Lungs: CTA Abdomen: soft, normal bowel sounds, nontender No flank pains Extremities: no edema or cyanosis Villarreal: clear yellow Objective Last Vital Signs Temp 36.5 C 10/26/23 06:00 Pulse 74 10/26/23 05:00 Resp 20 10/26/23 06:00 BP 92/56 L 10/26/23 05:00 Pulse Ox 96 10/26/23 06:00 Laboratory Results - last 24 hr 10/25/23 10/25/23 10/25/23 11:48 12:06 13:50 WBC 0.76 L* RBC 3.20 L Hgb 9.6 L Hct 28.8 L MCV 90 MCH 30.0 MCHC 33.3 RDW 13.7 Plt Count 181 MPV 9.9 Immature Gran % 0.0 Neutrophils % 10.0 Band Neutrophils % Lymphocytes % 57.0 Atypical Lymphs % 2 Monocytes % 30.0 Eosinophils % 1.0 Basophils % 0.0 Nucleated RBC % 0.0 Absolute Neutrophils 0.08 L* Absolute Lymphocytes 0.45 L Absolute Monocytes 0.23 Absolute Eosinophils 0.01 Absolute Basophils 0.00 RBC Morphology Normal VBG Lactate 3.8 H* Sodium 127 L Potassium 3.7 Chloride 93 L Carbon Dioxide 19.2 L Anion Gap 14.8 H BUN 15 Creatinine 1.1 Est GFR (CKD-EPI 2020) 70.01 Glucose 82 Calcium 8.2 L Magnesium 1.8 Total Bilirubin 1.6 H AST 32 ALT 33 Alkaline Phosphatase 93 Total Protein 6.0 L Albumin 2.1 L Procalcitonin Urine Color Yellow Urine Clarity Clear Urine pH 6.0 Ur Specific [place] 1.015 Urine Protein 100 H Urine Ketones Negative Urine Blood Large H Urine Nitrite Negative Urine Bilirubin Negative Urine Urobilinogen 1.0 H Ur Leukocyte Esterase Moderate H Urine RBC 20-50 H Urine WBC >50 H Ur Epithelial Cells Moderate Urine Crystals Not Applicable Urine Bacteria Moderate Urine Mucus Trace Urine Other Rare Renal Ur Culture Indicated? No/Sq. Contamination Urine Glucose Negative Random Vancomycin COVID-19 Source Nasopharynx SARS-CoV-2 (PCR) Negative Influenza Type A (PCR) Negative Influenza Type B (PCR) Negative RSV (PCR) Negative Add-On Test Request 10/25/23 10/25/23 10/25/23 14:58 22:36 23:00 WBC RBC Hgb Hct MCV MCH MCHC RDW Plt Count MPV Immature Gran % Neutrophils % Band Neutrophils % Lymphocytes % Atypical Lymphs % Monocytes % Eosinophils % Basophils % Nucleated RBC % Absolute Neutrophils Absolute Lymphocytes Absolute Monocytes Absolute Eosinophils Absolute Basophils RBC Morphology VBG Lactate 4.9 H* 1.7 H Sodium Potassium Chloride Carbon Dioxide Anion Gap BUN Creatinine Est GFR (CKD-EPI 2020) Glucose Calcium Magnesium Total Bilirubin AST ALT Alkaline Phosphatase Total Protein Albumin Procalcitonin 26.6 Urine Color Urine Clarity Urine pH Ur Specific [place] Urine Protein Urine Ketones Urine Blood Urine Nitrite Urine Bilirubin Urine Urobilinogen Ur Leukocyte Esterase Urine RBC Urine WBC Ur Epithelial Cells Urine Crystals Urine Bacteria Urine Mucus Urine Other Ur Culture Indicated? Urine Glucose Random Vancomycin COVID-19 Source SARS-CoV-2 (PCR) Influenza Type A (PCR) Influenza Type B (PCR) RSV (PCR) Add-On Test Request DONE 10/26/23 10/26/23 10/26/23 01:45 05:42 13:30 WBC 0.79 L* RBC 2.65 L Hgb 7.9 L Hct 23.3 L MCV 88 MCH 29.8 MCHC 33.9 RDW 13.5 Plt Count 152 MPV 10.2 Immature Gran % 0.0 Neutrophils % 31.0 Band Neutrophils % 1 Lymphocytes % 57.0 Atypical Lymphs % Monocytes % 9.0 Eosinophils % 1.0 Basophils % 1.0 Nucleated RBC % 0.0 Absolute Neutrophils 0.25 L* Absolute Lymphocytes 0.45 L Absolute Monocytes 0.07 L Absolute Eosinophils 0.01 Absolute Basophils 0.01 RBC Morphology Normal VBG Lactate 1.5 H Sodium 129 L Potassium 4.0 Chloride 98 Carbon Dioxide 21.3 Anion Gap 9.7 BUN 14 Creatinine 0.8 Est GFR (CKD-EPI 2020) 92.29 Glucose 110 H Calcium 7.9 L Magnesium Total Bilirubin 0.9 AST 20 ALT 25 Alkaline Phosphatase 70 Total Protein 4.9 L Albumin 1.6 L Procalcitonin Urine Color Urine Clarity Urine pH Ur Specific [place] Urine Protein Urine Ketones Urine Blood Urine Nitrite Urine Bilirubin Urine Urobilinogen Ur Leukocyte Esterase Urine RBC Urine WBC Ur Epithelial Cells Urine Crystals Urine Bacteria Urine Mucus Urine Other Ur Culture Indicated? Urine Glucose Random Vancomycin 9.5 Cancelled COVID-19 Source SARS-CoV-2 (PCR) Influenza Type A (PCR) Influenza Type B (PCR) RSV (PCR) Add-On Test Request Time Spent with Patient Time Spent with Patient: 25-34 minutes Time was spent: preparing to see the patient(eg.review tests), ordering medications,tests, procedures, referring, communicating with other health medical care administrator, indepentently interpreting results, counseling the patient and care coordination
[2023-10-26] MEDS: Hydrocortisone SOD SUC. 100 MG VIAL 50 MG IVP ×2 (08:46→15:47)
[2023-10-26] MEDS: Cholecalciferol (Vitamin D3) 400 UNIT TAB PO (08:48)
[2023-10-26] MEDS: Cyanocobalamin 500 MCG TAB 1000 MCG PO (08:48)
[2023-10-26] MEDS: Folic Acid 1 MG TAB PO (08:48)
[2023-10-26] MEDS: Normal Saline Flush 10 ML SYR IVP ×4 (08:49→23:14)
--- NOTE | 2023-10-26 10:15 | DI.US_ITS ---
Exam(s) US RENAL EXAM: US RENAL CLINICAL HISTORY: urosepsis; r/o obstructive uropathy. TECHNIQUE: Xiao scale, color and spectral Doppler were used. COMPARISON: CT CT LUMBAR SPINE W from 09/22/[address] ABDOMEN PELVIS W from 09/22/2023 FINDINGS: Renal size in cm: Right: 10.0. Left: 9.9. Echogenicity: Normal. Hydronephrosis: No. Cyst or mass: There is a stable 1.7 x 1.6 x 1.7 cm cyst in the right kidney. This is unchanged. No follow-up is recommended. Nephrolithiasis: No. Other findings: None. Bladder:There is a Reeves catheter in the urinary bladder. There is thickening of the wall of the uri nary bladder diffusely. This may be due to underdistention. Cystitis cannot be excluded. Ureteral jets: Right: Not visualized on this examination. Left: Not visualized on this examination. Prevoid vol:46 cc with a Reeves clamped. Postvoid vol:0 cc with a Reeves unclamped. Renal color flow: Symmetric and within normal limits. IMPRESSION: 1. No hydronephrosis. 2. Diffuse thickening of the wall of the urinary bladder. This may be due to underdistention. Cysti tis cannot be excluded. Please correlate clinically. DATA REPOSITORY:
[2023-10-26] MEDS: VANCOMYCIN/WATER (PEG) 750 MG/150 ML BAG 150 MG IVPB (12:17)
--- NOTE | 2023-10-26 15:05 | PT.INIE ---
PT Notes Visit Reasons: Neutropenic Sepsis Physical Therapy Inpatient Initial Evaluation Date: 10/26/2023 Referring Doctor: Adolfo Mckenzie MD PT Orders: PT CONSULT: Extended stay- weakness Precautions: Fall. Standard. Activity as tolerated. 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 Social History/Home Situation: Lives with in a private home with 3 steps with a rail on one side to enter. Independent with aspects of ADLs although recently (estimates past few weeks), has required use of FWW in community and cane in his home. Equipment Owned/DME: FWW, cane Subjective: Bo is agreeable to PT consult. States that he is feeling weak, but otherwise okay. He struggled to walk yesterday, but states that today he feels like a whole new person. Objective: General Observation: Supine in bed. Telemetry monitoring in place. Reeves catheter in place. Mental Status: Alert and oriented as to person, place, time, and purpose. Able to pay attention, focus, and respond appropriately. Pain: left hip pain, baseline Vital Signs: monitored on telemetry throughout ROM: Right Upper Extremity: Shoulder Flexion to 135. Shoulder abduction WFL. Elbow flexion WFL. Wrist flexion WFL. Functional opening and closing of hand WFL. Left Upper Extremity: Shoulder Flexion 135. Shoulder abduction WFL. Elbow flexion WFL. Wrist flexion WFL. Functional opening and closing of hand WFL. Right Lower Extremity: Hip flexion WFL. Hip abduction WFL. Knee flexion WFL. Ankle dorsiflexion WFL. Ankle plantarflexion WFL. Left Lower Extremity: Hip flexion WFL but with pain with movement. Hip abduction WFL but with pain with movement. Knee flexion WFL. Ankle dorsiflexion WFL. Ankle plantarflexion WFL. Strength: Right Upper Extremity: Shoulder flexors 3+/5. Shoulder abductors 3+/5. Elbow flexors 4+/5. Elbow extensors 4+/5. Program Director/Music Director strong. Left Upper Extremity: Shoulder flexors 3+/5. Shoulder abductors 3+/5. Elbow flexors 4+/5. Elbow extensors 4+/5. Program Director/Music Director strong. Right Lower Extremity: Hip flexors 4/5. Hip abductors 3+/5. Knee flexors 4-/5. Knee extensors 4/5. Ankle dorsiflexors 4/5. Ankle plantarflexors 4-/5. Left Lower Extremity: Hip flexors 4/5. Hip abductors 3+/5. Knee flexors 4-/5. Knee extensors 4-/5. Ankle dorsiflexors 4/5. Ankle plantarflexors 4-/5. Bed Mobility/Transfers: Moderate assist given for movement sequence and use of B UE to minimize pain in L hip and reduce fall risk Supine to sit : supervision Sit to supine minimal assist to LLE due to pain Sit to stand minimal assist with FWW. With bed elevated by 2, able to complete with SBA only. Stand to sit SBA with cues for hand placement Scooting up in bed : cues for technique. Able to complete independently with be flat, use of bilat bed rails Gait: Deferred walking outside room due to neutropenic precautions. Ambulates 15' in room with FWW, CGA. Demonstrates mild ataxia, but no losses of balance. Balance: Static Sitting: Good Dynamic Sitting: Fair (requires UE support to bed during seated november) Static Standing: Fair Dynamic Standing: Fair Special Tests: Mobility Limitations Standardized Measure [facility] AM-PAC 6 clicks Basic Mobility Inpatient Short Form: Raw Score: 19 CMS Score: 42% deficit Coordination: diminished with rapid alternating movements of LEs Informed Consent/Education: Patient was instructed in purpose of PT consult and plan of care. Agreeable to proceed with established PT POC to achieve personal goals. Treatment: Initial Evaluation (92692) Therapeutic Exericses ([id number]): Instructed in the followin. standing balance, no UE support, small MARIBETH, CGA 20 seconds x 3 2. seated november 10x, cues for amplitudue 3. seated punch ups 10x 4. seated LAQ 10x Assessment: Patient referred for PT evaluation and treatment in acute care setting, where he is being treated for neutropenic sepsis in the presence of rectal cancer. Patient presents with clinical signs and symptoms consistent with current/admitting diagnoses that have resulted to mobility limitations, gait instability, generalized weakness, and overall ADL decline as demonstrated by the following impairment level findings: 1. Decreased strength to bilat UE/LE major muscle groups 2. Impaired sitting/standing balance 3. Impaired activity tolerance 4. decreased coordination 5. ataxic gait Impairments are contributing to the following functional limitations: 1. Decline in bed mobility skills 2. Decline in transfer skills 3. Difficulty with ambulation without assistive device and physical assistance 4. Increased completion time for mobility ADL performance 5. Increased risk for falls 6. Difficulty with managing steps alone safely Patient is assessed as a 72361 moderate complexity based on the following: History: 77-year-old male with past medical history as indicated above Examination: Demonstrable impairment in strength, balance, and mobility level with underlying impairments and functional limitations as exhibited above as well as deficit score of 42% utilizing the [facility] Mobility Inpatient Short Form Presentation: Evolving Decision Makin moderate complexity Goals: Goals X1 week 1. Supine-Sit independent 2. Sit-Supine independent 3. Sit-Stand independent 4. Stand-Sit independent with FWW 5. Bed-Chair independent with FWW 6. Chair-Bed independent with FWW 7. Independent gait on level surface with use of FWW for at least 50 feet without report of pain nor dyspnea 8. Good static and dynamic standing balance/tolerance Plan of Care/Treatment Plan: 1-2x/day, 7 days/week x 1 week. Plan of care has been reviewed with the MATERIAL HAULER providing the service under Physical Therapy direction. Initiate Physical Therapy intervention for pain management as needed, strengthening, bed mobility, transfers, gait, stairs, balance training, and use of assistive device. DISCHARGE RECOMMENDATIONS: [X] Home with services. Patient will benefit from home health PT services in order to progress mobility level using least restrictive assistive ambulatory device, assess home safety, identify additional equipment needs, and establish a functional maintenance program that will increase ability of patient to remain at home. TREATMENT CODE/TIME: 56972, [id number] ([id number]) Thank you for the opportunity to participate in the care of this patient. 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 -BR History of ankle surgery ankle pinning 50 yrs ago History of colonoscopy
--- NOTE | 2023-10-26 16:15 | PHACLINREV_ITS ---
Pharmacy Admission Review Admission Clinical Review Admission Pharmacy Review: Acute on chronic urinary retention (Acute) Acute UTI (Acute) Hyponatremia (Acute) Sepsis (Acute) Neutropenic fever (Acute) Penicillins Adverse Reaction (Unknown, Verified 10/25/23 11:38) Hives Resuscitation Status Full Code Height 5 ft 10 in Weight 58.7 kg Pharmacy Admission Review Renal Dosing Renal Dosing: BUN 14 mg/dL (7-18) 10/26/23 05:42 Creatinine 0.8 mg/dL (0.70-1.30) 10/26/23 05:42 Medications needing adjustments: Reviewed List of meds needing interventions: consider renal dose adjustment for cefepime for crcl <60 (crcl calculated by [employer] ~52.9) however using [employer], crcl is expected to be ~66. Monitor for changes in kidney fxn, appears to be at baseline now Anticoagulation Anticoagulation: Hgb 7.9 g/dL (13.5-17.5) L 10/26/23 05:42 Hct 23.3 % (40.0-50.0) L 10/26/23 05:42 Plt Count 152 10^3/uL (130-400) 10/26/23 05:42 Creatinine 0.8 mg/dL (0.70-1.30) 10/26/23 05:42 DVT Prophylaxis: Reviewed (none currently ordered (pancytopenic, anemic), monitor) Therapeutic Anticoagulation: N/A Opiate Usage Evaluate Pain Scale/Pains Meds: N/A (not on any opiates) Relevant Labs Relevant Labs: Sodium 129 mmol/L (136-145) L 10/26/23 05:42 Potassium 4.0 mmol/L (3.5-5.1) 10/26/23 05:42 Chloride 98 mmol/L (98-107) 10/26/23 05:42 Magnesium 1.8 mg/dL (1.8-2.4) 10/25/23 11:48 Electrolytes, C-Reactive P, ESR: Reviewed (ANC 0.25 (from 0.08 yesterday), hgb 7.9/hct 23.3) DM Control DM Control: Reviewed (does not have diabetes diagnosis, most recent A1C done 03/20/20 = 5.8%) Insulin Dosing, Diabetic Medication: n/a Cardiac Review BP, HR, EF%: Reviewed (BP running low. was on norepi drip, now dc'd. Takes midodrine 5 mg TID) QTc Review QTc: Reviewed (QTc = 460) List meds needing interventions: n/a IV to PO Switch IV Medications: Reviewed (IV abx necessary for neutropenic fever, switch to PO when appropriate. Stress dosing IV hydrocortisone x 48-72h then switch to home dose of PO prednisone) Current Meds Current Medication Order Review: Reviewed Pharmacy Antibiotic Review Relevant Labs: Relevant Labs 10/25/23 23:00 Procalcitonin 26.6 Pharmacy Antibiotic Activity: Reviewed, no change Comments: sepsis/neutropenic fever: cefepime 2g q8h + vanco 750 q12h for anticipated trough 16.2, AUC 480. Preliminary blood cultures growing gram negative rods
[2023-10-26] MEDS: Latanoprost 0.005% 2.5 ML BTL OP (23:15)
[2023-10-26] MEDS: Normal Saline 250 ML IV (23:44)
[2023-10-27] VITALS (24 sets, daily range): BP systolic 83–98; BP diastolic 51–62; PULSE 56–79; RESP 13–24; TEMP 35–36; O2SAT 98–100
[2023-10-27] MEDS: VANCOMYCIN/WATER (PEG) 750 MG/150 ML BAG 100 MG IVPB ×3 (00:01→23:02)
[2023-10-27] MEDS: Hydrocortisone SOD SUC. 100 MG VIAL 50 MG IVP ×3 (00:12→17:08)
[2023-10-27] MEDS: Normal Saline 1,000 ML 125 ML IV ×3 (00:15→14:45)
[2023-10-27] MEDS: Midodrine 2.5 MG TAB 5 MG PO ×3 (05:43→17:50)
[2023-10-27 06:26] LABS: Abs Immature Grans 0.01 10^3/uL (0.0-0.06); Absolute Basophil Count 0.02 10^3/uL (0.0-0.2); HCT 23.7 % (40.0-50.0); HGB 8.1 g/dL (13.5-17.5); MCHC 34.2 % (32.0-36.0); MCV 88 fL (80-95); MPV 11.1 fL (8.0-11.0); RDW 13.6 % (11.8-14.1); RDW-SD 43.8 fL; WBC 2.14 10^3/uL (4.4-10.8)
[2023-10-27 06:44] LABS: Anion Gap 10.8 mmol/L (3-11); BUN 18 mg/dL (7-18); CO2 20.2 mmol/L (21.0-32.0); CREATININE 0.8 mg/dL (0.70-1.30); Calcium 7.6 mg/dL (8.5-10.1); Chloride 102 mmol/L (98-107); Estimated GFR 92.29 (mL/min/1.73m2); Glucose 236 mg/dL (74-106); Potassium 3.7 mmol/L (3.5-5.1); Sodium 133 mmol/L (136-145)
[2023-10-27 06:55] LABS: Vancomycin, Random 16.8 ug/mL
[2023-10-27 06:57] LABS: Absolute Lymphocyte Count 0.54 10^3/uL (1.2-3.4); Absolute Neutrophil Count 0.98 10^3/uL (1.2-6.7); Atypical Lymphocytes % 1; Bands % 7
[2023-10-27 06:58] LABS: Diff Comment Manual Differential; Hypochromasia 2+
[2023-10-27 07:45] LABS: Platelet Count 209 10^3/uL (130-400)
[2023-10-27] MEDS: Pantoprazole 40 MG TABCR PO (07:53)
[2023-10-27] MEDS: CEFEPIME 2 GM in Normal Saline 100 ML IVPB (08:03)
[2023-10-27] MEDS: Cholecalciferol (Vitamin D3) 400 UNIT TAB PO (08:27)
[2023-10-27] MEDS: Folic Acid 1 MG TAB PO (08:27)
[2023-10-27] MEDS: Cyanocobalamin 500 MCG TAB 1000 MCG PO (08:27)
[2023-10-27] MEDS: Potassium Chloride 20 MEQ TABCR PO ×2 (08:27→20:44)
[2023-10-27] MEDS: Normal Saline Flush 10 ML SYR IVP ×2 (08:35→20:44)
--- NOTE | 2023-10-27 09:06 | PDOC.CMPRO ---
Date of service: 10/27/23 Time of Service: 09:06 Care Management Progress Note Progress Note Text Progress Note Text: S/O:Harrison was sitting up in bed visiting with his and daughter when CM met with him. He seemed to be in good spirits but verbalized wishing he was ready for discharge. Harrison's blood cultures from 10/25/23 grew E.Coli. Repeat blood cultures have been ordered for today. He is afebrile and denies pain. Harrison's blood pressures are still low, with systolic pressures in the 80s and 90s, but he is asymptomatic. Harrison informed CM that he was scheduled to receive chemotherapy again Wednesday but knows it will need to be postponed. He discussed his cancer treatment plan with the provider and indicated that he may not want to pursue further treatment, particularly if he is going to get sick after each treatment. He will discuss with his Oncologist. A: Bo is a 77 year old ,man admitted on 10/25/23 with sepsis P: Harrison will likely be discharged home with no new services when medically cleared. He will follow up with his PCP and Oncology team and transport with family. CM will follow and continue top assess for discharge concerns. SDOH(Care Management) Screening Will the Patient Participate in the Screening?: Unable to obtain Do you worry about having a steady place to live?: no Problems where you live: no known problems In the past 12 months, have you had to go without electric, gas, oil or water in your home?: no Have you or anyone in your house had to go without enough food to eat?: no Has lack of transportation kept you from medical appointments or from doing things needed for daily living?: no Has anyone in your support network made you feel unsafe for any reason?: no
--- NOTE | 2023-10-27 10:23 | PT.INTREAT ---
Date of service: 10/27/23 Time of Service: 08:40 PT Notes Visit Reasons: Neutropenic Sepsis Inpatient Physical Therapy Treatment Note [facility] Date: 10/27/23 PRECAUTIONS: Fall, neutropenic, activity as tolerated. AFTERNOON: Neutropenic precautions lifted. SUBJECTIVE: Patient reports that he was told therapy would not be in to see him until this afternoon. This clinician clarifies that he is expected to be seen twice a day, morning and afternoon. Patient reports that when he came in here he was really weak, feels much stronger now, expects that he will be able to manage just fine once he returns home. AFTERNOON: Patient reports feeling fine, doesn't understand why he isn't going home today. States that the doctor said all my bloodwork looks fine, he just wants to make sure it stays that way on the retest or something. OBJECTIVE: Supine in bed. Agreeable to therapy. Reeves, IV x2, telemetry, BP cuff, SaO2 sensor all in place. AFTERNOON: Supine in bed. Agreeable to therapy. ? PAIN: none reported. VITALS: monitored by nursing staff. ? Therapeutic Activities (22520c3): Direct one-on-one instruction in dynamic activities to improve functional performance. ? BED MOBILITY/TRANSFERS? Rolling L/R: independent Supine-sit: independent ? Sit-supine: independent ? Sit-stand: SBA ? Stand-sit: SBA ? Bed-Chair: CGA to walk around foot of bed ? Chair-bed: CGA to walk around foot of bed Provided skilled cues and instruction on performance and technique throughout. ? Therapeutic Exercises ([id number]): Direct one-on-one instruction in therapeutic exercises to develop strength, endurance, range of motion and flexibility. Ambulation ? Assistive Device: FWW ? Weight bearing: full Assist: SBA. Patient declines gait belt ? Distance:? 50 feet ? Deviation: Gait largely unremarkable ? Provided skilled instruction in proper exercise performance Provided skilled manual cues to facilitate proper muscle recruitment and/or form. ASSESSMENT:? Patient tolerates therapy well, is not keen to participate, believes that he will manage fine at home. PLAN: Continue treatment per plan of care to patient tolerance until patient is medically cleared for discharge. TREATMENT CODE/TIME: 26 minutes beginning at 8:40 and 15 minutes beginning at 15:10 for a total of 41 minutes today.
--- NOTE | 2023-10-27 11:52 | PGE_ITS ---
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 Patient responded to stress dose hy drocortisone and norepinephrine. He has remained off vasopressors and was transferred out of ICU this morning. will continue cefepime for E coli bacteremia/sepsis, awaiting sensitivities on the cultures,continue stress dose steroids for another 24 hours then wean back to his home dose of prednisone. Qualifiers: Sepsis type: sepsis due to unspecified organism Sepsis acute organ dysfunction status: without acute organ dysfunction Qualified Code(s): A41.9 - Sepsis, unspecified organism (2) E coli bacteremia: Status: Acute Assessment and plan: as above (3) Neutropenic fever: Status: Acute Assessment and plan: as above (4) Acute UTI: Status: Acute Assessment and plan: as above (5) Acute on chronic urinary retention: Status: Acute Assessment and plan: continue chronic indwelling villarreal which was replaced while in the E.D. Subjective Subjective Interval history since last seen: Mr. Titus had questions about future cancer treatments. He is not sure that he wants to continue treatment particularly if he is going to get repeated infections. I explained to him that his oncologist is doing his best to prevent infection w/ Neulasta. I told him that he should have a lisa conversation w/ his oncologist as to what his expectations for survival w/ continued treatment versus no treatment. He denies any nausea or vomting and no pain. I told him that he has E coli bacteria in the blood but he is on appropriate antibiotics and I am awaiting the results of his repeat blood cultures so we can decide how long he needs to remains Exam Narrative Exam Narrative: Mr. Titus is lying in bed, NAD, alert and oriented, he asks appropriate questions Lungs: clear Heart: RRR Abdomen: nondistended, soft, nontender Villarreal is draininig clear yellow urine Extremities: no edema Objective Last Vital Signs Temp 36.0 C L 10/27/23 08:52 Pulse 57 L 10/27/23 10:01 Resp 19 10/27/23 10:01 BP 92/58 L 10/27/23 10:01 Pulse Ox 100 10/27/23 10:01 Laboratory Results - last 24 hr 10/27/23 06:00 WBC 2.14 L RBC 2.70 L Hgb 8.1 L Hct 23.7 L MCV 88 MCH 30.0 MCHC 34.2 RDW 13.6 Plt Count 209 MPV 11.1 H Immature Gran % See Differential Neutrophils % 39.0 Band Neutrophils % 7 Lymphocytes % 24.0 Atypical Lymphs % 1 Monocytes % 28.0 Eosinophils % 0.0 Basophils % 1.0 Nucleated RBC % 0.0 Absolute Neutrophils 0.98 L Absolute Lymphocytes 0.54 L Absolute Monocytes 0.60 Absolute Eosinophils 0.00 Absolute Basophils 0.02 RBC Morphology See Below Hypochromasia 2+ Sodium 133 L Potassium 3.7 Chloride 102 Carbon Dioxide 20.2 L Anion Gap 10.8 BUN 18 Creatinine 0.8 Est GFR (CKD-EPI 2020) 92.29 Glucose 236 H Calcium 7.6 L C-Reactive Protein 14.10 H Random Vancomycin 16.8 Time Spent with Patient Time Spent with Patient: 35-49 minutes Time was spent: preparing to see the patient(eg.review tests), obtaining and/or reviewing separately otained hiistory, ordering medications,tests, procedures, indepentently interpreting results, counseling the patient and care coordination
[2023-10-27 16:48] LABS: Lactate 2.5 mmol/L (0.6-1.4)
[2023-10-27 17:20] LABS: Procalcitonin 11.6 ng/mL
[2023-10-27] MEDS: Lactated Ringers 1,000 ML 150 ML IV (18:33)
[2023-10-27 22:23] LABS: Lactate 1.9 mmol/L (0.6-1.4)
[2023-10-27] MEDS: Latanoprost 0.005% 2.5 ML BTL OP (23:02)
[2023-10-28] MEDS: Hydrocortisone SOD SUC. 100 MG VIAL 50 MG IVP ×2 (00:33→07:46)
[2023-10-28] MEDS: Normal Saline Flush 10 ML SYR IVP ×2 (00:34→09:07)
[2023-10-28] MEDS: Lactated Ringers 1,000 ML 150 ML IV ×2 (00:35→06:38)
[2023-10-28 03:20] VITALS: BP 100/58; PULSE 70; RESP 16; TEMP 36; O2SAT 99
[2023-10-28 06:25] LABS: Lactate 1.4 mmol/L (0.6-1.4)
[2023-10-28] MEDS: Midodrine 2.5 MG TAB 5 MG PO ×2 (06:32→13:10)
[2023-10-28] MEDS: Pantoprazole 40 MG TABCR PO (06:46)
[2023-10-28 07:15] VITALS: BP 96/63; PULSE 57; RESP 16; TEMP 35.8; O2SAT 100
[2023-10-28] MEDS: Folic Acid 1 MG TAB PO (07:46)
[2023-10-28] MEDS: Cyanocobalamin 500 MCG TAB 1000 MCG PO (07:46)
[2023-10-28] MEDS: Potassium Chloride 20 MEQ TABCR PO (07:46)
[2023-10-28] MEDS: Cholecalciferol (Vitamin D3) 400 UNIT TAB PO (07:46)
--- NOTE | 2023-10-28 10:10 | W.PM.DS.N ---
Date of service: 10/28/23 Time of Service: 10:10 DS: Diagnosis Discharge Diagnosis (1) Sepsis: Status: Acute Asessment and Plan: - Secondary to UTI/E. coli bacteremia likely precipitated by chemotherapy for metastatic rectal carcinoma -Initially on cefepime, was changed to Merrem -Initial blood culture showed E. coli sensitive to ceftriaxone/cefpodoxime -Patient transition to p.o. cefpodoxime to complete 14-day course of antibiotic (2) E coli bacteremia: Status: Acute Asessment and Plan: - As noted above (3) Neutropenic fever: Status: Acute Asessment and Plan: - As noted above (4) Acute UTI: Status: Acute Asessment and Plan: - As noted above (5) Acute on chronic urinary retention: Status: Acute Asessment and Plan: - Reeves changed on admission Discharge Plan Disposition Patient Disposition: Home Condition: Good Discharge Details Reason For Visit: Neutropenic Sepsis Admit Date/Time: 10/25/23 14:16 Admit Provider: Adolfo Mckenzie Attending Provider: Adolfo Mckenzie Primary Care Provider: Genevieve Peterson [facility] Course Hospital Course: Patient initially presented with neutropenic fever and UTI that was ultimately determined to be E. coli bacteremia. He was initially treated with cefepime but due to an increase in lactic acid and hypothermia his antibiotics were changed to Merrem. Repeat blood cultures remain negative and initial blood cultures show sensitivity to ceftriaxone/cefpodoxime. Patient also feels significantly better, and given this as well as identified cultures and sensitivities it was determined that the patient was stable for discharge home and will continue cefpodoxime to complete a 2-week course of antibiotics. It was also highly recommended the patient have a close follow-up visit with his oncologist to discuss treatment options going forward. It is also recommended that he did not go to his scheduled chemotherapy appointment tomorrow 10/29/2023 as he is still on antibiotics for active E. coli bacteremia Home Meds and New Rx's Prescriptions: New cefpodoxime 200 mg Tablet 200 mg PO BID Qty: 23 0RF pantoprazole 40 mg Tablet,Delayed Release (Dr/Ec) 40 mg PO DAILY@0730 Qty: 90 0RF Continued potassium chloride 20 mEq tablet extended release 20 meq PO BID latanoprost 0.005 % drops 1 drp ophthalmic (eye) DAILY folic acid 1 mg tablet 1 mg PO DAILY cholecalciferol (vitamin D3) 10 mcg (400 unit) tablet 10 mcg PO DAILY cyanocobalamin (vitamin B-12) [Vitamin B-12] 1,000 mcg Tablet 1,000 mcg PO DAILY midodrine 2.5 mg Tablet 5 mg PO TID 120 Days Qty: 720 0RF hydrocortisone 10 mg tablet See Rx Instructions .ROUTE .COMPLEX Qty: 90 1RF Rx Instructions: 20 mg po qam and 10 mg q 4 pm prochlorperazine maleate 10 mg tablet 10 mg PO Q6H PRN Patient Comments: TAKE ONE TABLET BY MOUTH EVERY 6 HOURS NEEDED FOR NAUSEA Discontinued prednisone 10 mg tablet 10 mg PO BID Patient Comments: pt taking 20 mg in AM, 10 mg PM. timolol maleate 0.25 % drops 1 drp ophthalmic (eye) DAILY Rx Instructions: both eyes tramadol 50 mg tablet 50 mg PO Q4H MDD 6 PRN (Reason: pain (scale score 7-10)) Qty: 10 0RF Rx Instructions: will cause constipation Discharge Instructions Instructions: Catheter-associated Urinary Tract Infection (DC), Bacteremia (DC) Activity:: Activity as Tolerated Equipment/Supplies:: No Equipment Needed Diet:: As Tolerated Discharge Orders Discharge Orders: Discharge Order (Routine); Ordered 10/28/23 Ordered By: Salazar Orellana DS: Summary Time Spent with Patient providing and/or coordinating discharge services: Greater than 30 minutes Status at Discharge Functional status at discharge: independent ambulation Overall status at discharge: patient is back to baseline Mental Status: mental status grossly normal Speech and Movement: speech and movement normal Mood: congruent mood Affect: normal affect Quality:SDOH Health Related Social Needs: Health related social needs details no problem on the above questions. Exam Narrative Exam Narrative: Well-appearing older gentleman laying in bed in no acute distress, ANO x 4, heart regular rhythm, lungs clear to auscultation bilaterally, abdomen soft, nontender, nondistended, chronic and malignant Reeves in place and draining clear yellowish fluid Psych Mental Status: mental status grossly normal Speech and Movement: speech and movement normal Mood: congruent mood Affect: normal affect DS: Data Vitals/I&O Vitals and I&O: Vital Signs Temperature 96.4 F L 10/28/23 07:15 Temperature Source Tympanic 10/28/23 07:15 Pulse 57 L 10/28/23 07:15 Pulse Rhythm Regular 10/28/23 04:07 Pulse 56 L 10/27/23 10:01 Respiratory Rate 16 10/28/23 07:15 Respiratory Effort Normal, Non-Labored 10/28/23 04:07 Respiratory Depth Normal 10/28/23 04:07 Respiratory Pattern Normal 10/28/23 04:07 Blood Pressure 96/63 L 10/28/23 07:15 Blood Pressure Mean 70 10/27/23 10:01 Blood Pressure Position Supine 10/26/23 17:27 Pulse Oximetry 100 10/28/23 07:15 Oxygen Delivery Method Room Air 10/28/23 07:15 Oxygen Flow Rate 0 10/28/23 07:15 Pain Level 0 10/28/23 07:15 Comment could not get temp up, had order for jannie monahan 10/27/23 17:43 Comment ra 10/26/23 02:01 Intake & Output 10/27/23 10/28/23 10/28/23 17:59 05:59 17:59 Intake Total 2180 / 2180 1155 / 3335 2400.0 / 2400.0 Output Total 575 / 575 1500 / 2075 400 / 400 Balance 1605 / 1605 -345 / 1260 2000.0 / 2000.0 Weight 128 lb 15.527 oz Intake: IV 1350 / 1350 1155 / 2505 2400.0 / 2400.0 Oral 830 / 830 Output: Urine 575 / 575 1500 / 2075 400 / 400 Other: Urine Color Yellow Yellow Straw Urine Appearance Clear Clear Clear Urine Odor Normal Stool Size Small Smear Stool Characteristics Mucoid Brown Voiding Methods Indwelling Catheter Indwelling Catheter Data Completed and Pending Labs on day of discharge: Labs from last 24 hours 10/28/23 10/27/23 10/27/23 06:18 22:14 16:30 VBG Lactate 1.4 1.9 H 2.5 H* Procalcitonin 11.6 10/27/23 16:40 Blood Blood Culture - Pending 10/27/23 16:30 Blood Blood Culture - Pending Preliminary micro results at discharge 10/25/23 11:50 Blood Culture - Preliminary Blood Escherichia coli 10/27/23 16:40 Blood Culture - Pending Blood 10/27/23 16:30 Blood Culture - Pending Blood PFSH All Active Problems E coli bacteremia (Acute) E coli bacteremia (Acute) Acute on chronic urinary retention (Acute) Acute UTI (Acute) Hyponatremia (Acute) Anemia (Chronic) Sepsis (Acute) Neutropenic fever (Acute) Acute urinary retention (Acute) Encounter for care related to vascular access port (Acute) Diverticula of colon (Acute) Anal stricture (Acute) Fecal incontinence (Acute) 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 -BR History of ankle surgery ankle pinning 50 yrs ago History of colonoscopy Port-A-Cath in place (~09/2023) Family History Father Cancer Heart disease Social History Smoking/Tobacco Use Status: Former Tobacco Use Quit Date: 09/13/99 Smoking risk assessment performed?: Yes Alcohol Intake: former Drug use: Never Substance use type: does not use Details: PER PT- QUIT DRINKING 2-3WEEKS AGO Housing: house Do you feel safe at home: Yes Do you feel safe in your relationship?: Yes Time Spent with Patient Time Spent with Patient: <45 minutes Time was spent: preparing to see the patient(eg.review tests), obtaining and/or reviewing separately otained hiistory, ordering medications,tests, procedures, referring, communicating with other health intensive care specialist, indepentently interpreting results, counseling the patient and care coordination
--- NOTE | 2023-10-28 11:20 | PT.INNT ---
Date of service: 10/28/23 Time of Service: 10:09 PT Notes Visit Reasons: Neutropenic Sepsis Patient respectfully declines therapy today. He is expecting to be discharged in the early afternoon, and prefers to save his energy for getting packed up and getting home.
[2023-10-28 12:45] VITALS: BP 102/48; PULSE 67; RESP 18; TEMP 36.6; O2SAT 99
--- NOTE | 2023-10-28 13:55 | PDOC.CMDIS ---
Date of service: 10/28/23 Time of Service: 14:16 LACE Index Scoring Tool Questions: Length of Stay (in days): 3 Was the patient admitted via the E.D.?: Yes E.D. Visits: 2 Answers: Total Score: 8 Risk of Readmission: Low Risk Care Management Discharge Plan Reason for Hospitalization: sepsis Discharge Plan: Bo will return home via private vehicle with [facility]. He will follow up with his PCP and plan of care as described. Patient/Family Education Needs: Review discharge instructions and discuss Ask Me Three Bo discussed his desire to have his care plan correct now, since this will be his third time at [facility] due to treatment plans. SDOH Health Related Social Needs: Health related social needs details no problem on the above questions.
== END 2023-10-28 13:56 | disposition home or self-care (01) | DRG 872 ==
LOC: ER 13:17 → ICU 20:04 → MS 10-27 10:45
PROVIDERS: Admitting Provider Internal Medicine; Emergency Provider Student in an Organized Health Care Education/Training Program; PCP Family Medicine; Visit Provider Internal Medicine
DX: A41.51 Sepsis due to Escherichia coli [E. coli] (principal); C20 Malignant neoplasm of rectum; C79.51 Secondary malignant neoplasm of bone; N39.0 Urinary tract infection, site not specified; C79.72 Secondary malignant neoplasm of left adrenal gland; C79.71 Secondary malignant neoplasm of right adrenal gland; E87.1 Hypo-osmolality and hyponatremia; R33.9 Retention of urine, unspecified; B96.20 Unspecified Escherichia coli [E. coli] as the cause of diseases classified elsewhere; Z79.899 Other long term (current) drug therapy; D70.1 Agranulocytosis secondary to cancer chemotherapy; R50.81 Fever presenting with conditions classified elsewhere; R15.9 Full incontinence of feces; Z95.828 Presence of other vascular implants and grafts; K57.30 Diverticulosis of large intestine without perforation or abscess without bleeding; K62.4 Stenosis of anus and rectum; F10.20 Alcohol dependence, uncomplicated; H40.9 Unspecified glaucoma; R73.03 Prediabetes; G31.84 Mild cognitive impairment of uncertain or unknown etiology; D53.1 Other megaloblastic anemias, not elsewhere classified; Z90.49 Acquired absence of other specified parts of digestive tract; Z66 Do not resuscitate
CPT/HCPCS: 00123; 36415; 36591; 51702; 76770; 80048; 80053; 84145; 86850; 86900; 86901; 87040; 87077; 87637; 93005; 96365; 96366; 96367; 96375; 97110; 97162; 97530; 99291; 71046; 80202; 81003; 81015; 82272; 83605; 83735; 85025; 86140; 87086; 87186; 93010; 99233; 99238; J0692; J1720; J2185; J2470; J3370; J3372; J3490